=== PATIENT | male | born 1960 | race Caucasian/White ===

== ENCOUNTER 2017-02-11 15:44 | Inpatient (IN) | payer MEDICARE, MEDICAID ==
[~2017-02-11] VITALS: Ht 193 cm; Wt 110.8 kg
[~2017-02-11 15:44] MED LIST: GEOD80CA PO; NEUR300C PO; OMEP20TA PO; PALI234P IM; POLY255S; TRIH2 PO; WARF-60 PO
[2017-02-11 15:51] VITALS: BP 102/58; PULSE 94; RESP 20; TEMP 98; O2SAT 96
--- NOTE | 2017-02-11 16:02 | PD ---
Physical Exam Date Seen by Provider: February 11, 2017 Time Seen by Provider: 16:01 Narrative 57 YOWM BY EMS FOR L GREAT TOE PAIN H/O WART. PAIN 02/09 VSS wating for bed asignment Data Data Last Documented VS Vital Signs Date Time Temp Pulse Resp B/P Pulse Ox O2 Delivery O2 Flow Rate FiO2 02/11/17 15:51 98.0 94 20 102/58 96 Room Air MDM Medical Record Reviewed: No Supervised Visit with HALEY: Santos Ely February 11, 2017 16:02
--- NOTE | 2017-02-11 17:15 | PD ---
HPI Chief Complaint: Pain: Acute or Chronic Time Seen by Provider: 17:08 Travel History International Travel<30 days: No Contact w/Intl Traveler<30days: No Traveled to known affect area: No History of Present Illness HPI 57 YOWM presents to ed with c/o of left great toe pain x 7days. He reports the area has become increasingly more painful & red. He denies trauma. He reports difficulty walking due to the pain. He reports he is followed by Dr. England ( podiatry) for the large wart on his left great toe. He denies fever,chills, or any other complaints. PMH of CPOD, HTN, Bipolar/schizoaffective disorder, Hx of DVT in R leg, xerosis cutis. PFSH Past Medical History Arthritis: Yes Asthma: Yes Autoimmune Disease: No Blood Disorders: No Bipolar Disorder: Yes Anxiety: Yes Depression: Yes (MANIC DEPRESSIVE) Heart Rhythm Problems: No Cancer: No Cardiovascular Problems: Yes (PERIPHERAL VASCULAR DISEASE) High Cholesterol: Yes Chemotherapy: No Chest Pain: No Congestive Heart Failure: No Cirrhosis: No COPD: Yes Cerebrovascular Accident: No Diabetes: No Diminished Hearing: No Deep Vein Thrombosis: Yes Endocrine: Yes Gastrointestinal Disorders: No GERD: Yes Glaucoma: No Genitourinary: Yes Headaches: No Hepatitis: No Hiatal Hernia: Yes Hypertension: Yes Immune Disorder: No Implanted Vascular Access Dvce: No Kidney Stones: Yes Musculoskeletal: No Neurologic: Yes Psychiatric: Yes Reproductive: No Respiratory: Yes Immunizations Current: Yes Migraines: No Myocardial Infarction: No Radiation Therapy: No Renal Failure: Yes Schizophrenia: Yes Seizures: Yes Sickle Cell Disease: No Sleep Apnea: No Thyroid Disease: No Ulcer: No PNEUMOCCOCAL Vaccine (Year): 2 Past Surgical History Abdominal Surgery: No AICD: No Appendectomy: No Arteriovenous Shunt: No Cardiac Surgery: No Cholecystectomy: No Ear Surgery: No Endocrine Surgery: No Eye Surgery: 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) Genitourinary Surgery: Yes (KIDNEY DISORDER) Gynecologic Surgery: No Insulin Pump: No Joint Replacement: No Neurologic Surgery: No Oral Surgery: Yes Pacemaker: No Thoracic Surgery: No Other Surgery: Yes ("JUST MY EYES, I WAS CROSS-EYED WHEN I WAS BORN") Social History Alcohol Use: No Tobacco Use: Yes Substance Use: No Allergies-Medications (Allergen,Severity, Reaction): Coded Allergies: Haldol (Verified Allergy, Severe, TONGUE SWELLS, 11/20/15) [place] (Verified Allergy, Severe, OVER DOSED ON IT, 11/20/15) Penicillin (Verified Allergy, Severe, RASH, 11/20/15) Seroquel (Verified Allergy, Severe, HIVES, 11/20/15) Thorazine (Verified Allergy, Severe, SOB, 11/20/15) 10/26/04: PER PT, HE HAS BEEN TAKING STELAZINE SINCE 13 YEARS OLD --- ALTHOUGH HIS RECORD INDICATES AN ALLERGY TO THORAZINE. 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 SKIN: Warm and dry. Xerosis cutis w/ hyperpigmentation of bilateral lower extremities. HEAD: Normocephalic. EYES: No scleral icterus. No injection or drainage. NECK: Supple, trachea midline. No JVD or lymphadenopathy. CARDIOVASCULAR: Regular rate and rhythm without murmurs, gallops, or rubs. RESPIRATORY: Breath sounds equal bilaterally. No accessory muscle use. Mild expiratory wheezes & rhonchi. No respiratory distress. GASTROINTESTINAL: Abdomen soft, non-tender, nondistended. MUSCULOSKELETAL: No cyanosis, Left great toe erythematic & swollen, 2x2 cm fluctuant area on the medial/plantar aspect of the L great toe. BACK: Nontender without obvious deformity. No CVA tenderness. Data Data Last Documented VS Vital Signs Date Time Temp Pulse Resp B/P Pulse Ox O2 Delivery O2 Flow Rate FiO2 02/11/17 15:51 98.0 94 20 102/58 96 Room Air Orders Complete Blood Count With Diff (02/11/17 17:03) Comprehensive Metabolic Panel (02/11/17 17:03) Foot, Limited (2vws) (02/11/17 ) C-Reactive Protein (Crp) (02/11/17 17:03) Prothrombin Time / Inr (Pt) (02/11/17 17:17) Lidocaine 1% Inj (50 Ml) (Xylocaine 1% I (02/11/17 17:30) Wound Culture And Gram Stain (02/11/17 17:33) Diet Regular Basic (02/11/17 Dinner) Clindamycin Inj (Cleocin Inj) (02/11/17 18:46) Consult Podiatry (02/11/17 ) Admit Order (Ed Use Only) (02/11/17 18:56) Labs Laboratory Tests Test 02/11/17 02/11/17 17:35 18:20 White Blood Count 15.6 TH/MM3 Red Blood Count 4.67 MIL/MM3 Hemoglobin 12.1 GM/DL Hematocrit 38.2 % Mean Corpuscular Volume 81.8 FL Mean Corpuscular Hemoglobin 26.0 PG Mean Corpuscular Hemoglobin 31.8 % Concent Red Cell Distribution Width 18.5 % Platelet Count 236 TH/MM3 Mean Platelet Volume 9.0 FL Neutrophils (%) (Auto) 87.1 % Lymphocytes (%) (Auto) 5.9 % Monocytes (%) (Auto) 6.4 % Eosinophils (%) (Auto) 0.2 % Basophils (%) (Auto) 0.4 % Neutrophils # (Auto) 13.6 TH/MM3 Lymphocytes # (Auto) 0.9 TH/MM3 Monocytes # (Auto) 1.0 TH/MM3 Eosinophils # (Auto) 0.0 TH/MM3 Basophils # (Auto) 0.1 TH/MM3 CBC Comment DIFF FINAL Differential Comment Sodium Level 135 MEQ/L Potassium Level 4.8 MEQ/L Chloride Level 105 MEQ/L Carbon Dioxide Level 21.3 MEQ/L Anion Gap 9 MEQ/L Blood Urea Nitrogen 19 MG/DL Creatinine 3.25 MG/DL Estimat Glomerular Filtration 20 ML/MIN Rate Random Glucose 88 MG/DL Calcium Level 9.7 MG/DL Total Bilirubin 0.4 MG/DL Aspartate Amino Transf 18 U/L (AST/SGOT) Alanine Aminotransferase 16 U/L (ALT/SGPT) Alkaline Phosphatase 126 U/L C-Reactive Protein 19.80 MG/DL Total Protein 8.1 GM/DL Albumin 3.2 GM/DL Prothrombin Time 46.4 SEC Prothromb Time International 4.0 RATIO Ratio MDM Medical Decision Making Medical Screen Exam Complete: Yes Emergency Medical Condition: Yes Medical Record Reviewed: Yes Differential Diagnosis abscess vs. cellulitis vs. osteomyelitis Narrative Course 57 YOM presents with left great toe pain & swelling worsening over the last 7 days. Patient denies any symptoms of systemic infection. PE reveals abscess to left great toe. Plan I & D of the abscess, IV access, CBC, CMP, INR, wound culture, & xray of foot are pending. Left foot xray reveal + gas in soft tissue, negative for osteomyelitis. pertinent labs: CBC: WBC 15, CRP 19.8 CMP: Creatinine 3.9. Plan is to admit patient for abscess & acute renal failure. Discussed Lab/xray findings with patient He agrees to admission & treatment plan. Procedures Procedure Narrative After the risks and benefits were discussed the following procedure was performed: INCISION AND DRAINAGE OF ABSCESS: The area was prepped and was sterilely draped. Digital Block using [1] % Xylocaine with a total number [2] mL was used to anesthetize the area. The area was properly anesthetized. A number [11 ] scalpel was used to make a [0.5] -cm incision across the area of the abscess. Cultures were obtained. The abscess was drained an irrigated with normal saline. Quarter inch iodoform packing was placed in the wound. Sterile dressing applied. Patient advised to have packing removed in two days. Physician Communication Physician Communication Discussed patient with GURDEEP Reilly working with Dr. Farris ([facility]) they agree to admit patient to their services. Diagnosis Primary Impression: Abscess of left great toe Additional Impressions: ARF (acute renal failure) Qualified Code: N17.9 - Acute renal failure, unspecified acute renal failure type Leukocytosis Qualified Code: D72.829 - Leukocytosis, unspecified type Admitting Information Admitting Physician Requests: Admit Renetta Stafford February 11, 2017 17:15 Renetta Stafford February 11, 2017 17:15
[2017-02-11] MEDS ORDERED: LIDOCAINE HCL 1% 50 ML VIAL INFIL ONE (17:30)
--- NOTE | 2017-02-11 17:43 | RADRPT ---
EXAM DATE/TIME: 02/11/2017 17:29 [facility] COMPARISON: No previous studies available for comparison. INDICATIONS : Left foot pain, swelling, and ulceration of 1st digit. MEDICAL HISTORY : None. SURGICAL HISTORY : None. ENCOUNTER: Initial ACUITY: 3 months PAIN SCORE: 10/10 LOCATION: Left foot. FINDINGS: There is gas in the soft tissues about the great toe. There is no obvious bone destruction. Inflamm atory process is suspected. No other abnormality is appreciated. CONCLUSION: Inflammatory process great toe without osteomyelitis. Arcenio Catherine MD FACR on February 11, 2017 at 17:40 Board Certified Radiologist. This report was verified electronically.
--- NOTE | 2017-02-11 17:54 | PD ---
Data Data Last Documented VS Vital Signs Date Time Temp Pulse Resp B/P Pulse Ox O2 Delivery O2 Flow Rate FiO2 02/11/17 15:51 98.0 94 20 102/58 96 Room Air Orders Complete Blood Count With Diff (02/11/17 17:03) Comprehensive Metabolic Panel (02/11/17 17:03) Foot, Limited (2vws) (02/11/17 ) C-Reactive Protein (Crp) (02/11/17 17:03) Prothrombin Time / Inr (Pt) (02/11/17 17:17) Lidocaine 1% Inj (50 Ml) (Xylocaine 1% I (02/11/17 17:30) Wound Culture And Gram Stain (02/11/17 17:33) Diet Regular Basic (02/11/17 Dinner) Clindamycin Inj (Cleocin Inj) (02/11/17 18:46) Consult Podiatry (02/11/17 ) Admit Order (Ed Use Only) (02/11/17 18:56) Labs Laboratory Tests Test 02/11/17 17:35 White Blood Count 15.6 TH/MM3 Red Blood Count 4.67 MIL/MM3 Hemoglobin 12.1 GM/DL Hematocrit 38.2 % Mean Corpuscular Volume 81.8 FL Mean Corpuscular Hemoglobin 26.0 PG Mean Corpuscular Hemoglobin 31.8 % Concent Red Cell Distribution Width 18.5 % Platelet Count 236 TH/MM3 Mean Platelet Volume 9.0 FL Neutrophils (%) (Auto) 87.1 % Lymphocytes (%) (Auto) 5.9 % Monocytes (%) (Auto) 6.4 % Eosinophils (%) (Auto) 0.2 % Basophils (%) (Auto) 0.4 % Neutrophils # (Auto) 13.6 TH/MM3 Lymphocytes # (Auto) 0.9 TH/MM3 Monocytes # (Auto) 1.0 TH/MM3 Eosinophils # (Auto) 0.0 TH/MM3 Basophils # (Auto) 0.1 TH/MM3 CBC Comment DIFF FINAL Differential Comment Sodium Level 135 MEQ/L Potassium Level 4.8 MEQ/L Chloride Level 105 MEQ/L Carbon Dioxide Level 21.3 MEQ/L Anion Gap 9 MEQ/L Blood Urea Nitrogen 19 MG/DL Creatinine 3.25 MG/DL Estimat Glomerular Filtration 20 ML/MIN Rate Random Glucose 88 MG/DL Calcium Level 9.7 MG/DL Total Bilirubin 0.4 MG/DL Aspartate Amino Transf 18 U/L (AST/SGOT) Alanine Aminotransferase 16 U/L (ALT/SGPT) Alkaline Phosphatase 126 U/L C-Reactive Protein 19.80 MG/DL Total Protein 8.1 GM/DL Albumin 3.2 GM/DL MDM Supervised Visit with HALEY: Yes Narrative Course I, Dr. Perdomo, have reviewed the advance practice practioner's documentation and am in agreement, met with the patient face to face, made the diagnosis, and the medical decision making was done by me. *My assessment and Findings: 57-year-old male here with complaint of toe pain to the left great toe. He sees a manager creative and has had a warty-type growth on this toe for the greater part of the last year. Over the course the last week the toe has become increasingly more painful, to the point where he has difficulty walking, and slightly red prompting ER visit. No systemic symptoms. On exam patient has a erythematous great toe that this does not extend into the foot. Along the plantar aspect of the great toe there is obvious fluctuance consistent with abscess. Differential includes abscess, cellulitis, septic joint, osteomyelitis. X-ray shows inflammatory process but no evidence of bony destruction. Laboratory workup notable for elevated WBC with elevated CRP, acute renal failure. I and D was performed with significant amount of purulence. Patient will be treated with antibiotics for abscess with concurrent cellulitis and admitted for rule out osteomyelitis. Scripts Unable to Obtain Active Prescriptions or Reported Meds Rosangela Perdomo MD February 11, 2017 17:54
[2017-02-11 18:09] LABS: AUTOMATED NEUTROPHIL # 13.6 TH/MM3 (1.8-7.7); BASOPHIL # 0.1 TH/MM3 (0-0.2); BASOPHIL % 0.4 % (0.0-2.0); EOSINOPHIL % 0.2 % (0.0-4.0); HEMATOCRIT 38.2 % (39.0-51.0); HEMO FLAGS DIFF FINAL; LYMPH % 5.9 % (9.0-44.0); LYMPHOCYTE # 0.9 TH/MM3 (1.0-4.8); MEAN CELL VOLUME 81.8 FL (80.0-100.0); MEAN CORPUSCULAR HGB CONC 31.8 % (32.0-36.0); MONO % 6.4 % (0.0-8.0); NEUT % 87.1 % (16.0-70.0); PLATELET COUNT 236 TH/MM3 (150-450); RED BLOOD COUNT 4.67 MIL/MM3 (4.50-5.90); RED CELL DISTRIBUTION WIDTH 18.5 % (11.6-17.2); WHITE BLOOD COUNT 15.6 TH/MM3 (4.0-11.0)
[2017-02-11 18:33] LABS: ALT (GPT) 16 U/L (12-78); ANION GAP 9 MEQ/L (5-15); AST (GOT) 18 U/L (15-37); BICARBONATE 21.3 MEQ/L (21.0-32.0); BLOOD UREA NITROGEN 19 MG/DL (7-18); CHLORIDE 105 MEQ/L (98-107); GLOMERULAR FILTRATION RATE 20 ML/MIN (>89); SODIUM (NA) 135 MEQ/L (136-145)
[2017-02-11 18:34] LABS: POTASSIUM 4.8 MEQ/L (3.5-5.1)
[2017-02-11 18:38] LABS: ALKALINE PHOSPHATASE 126 U/L (45-117); TOTAL BILIRUBIN ADULT 0.4 MG/DL (0.2-1.0)
[2017-02-11] MEDS ORDERED: CLINDAMYCIN INJ 900 MG in SODIUM CHLORIDE 0.9% INJ 100 ML IV STA (18:46)
[2017-02-11] MEDS ORDERED: SODIUM CHLORIDE 0.9% FLUSH 10 ML FLUSH IV FLUSH PRN (19:00)
[2017-02-11] MEDS ORDERED: NALOXONE HCL 0.4 MG/ML AMP IV PRN (19:00)
[2017-02-11] MEDS ORDERED: ACETAMINOPHEN 325 MG TAB PO PRN (19:00)
[2017-02-11 19:16] LABS: PROTHROMBIN TIME - PATIENT 46.4 SEC (9.8-11.6)
[2017-02-11] MEDS: SODIUM CHLORIDE 0.9% FLUSH 10 ML FLUSH IV FLUSH SCH (19:37)
[2017-02-11] MEDS: SODIUM CHLOR 0.9% 1000 ML INJ 1,000 ML IV SCH (19:37)
[2017-02-11 21:30] VITALS: BP 133/69; PULSE 83; RESP 18; TEMP 98.9; O2SAT 96
--- NOTE | 2017-02-11 22:18 | RADRPT ---
EXAM DATE/TIME: 02/11/2017 20:55 [facility] COMPARISON: No previous studies available for comparison. INDICATIONS : Abscess. Open wound on medial side of great toe. MEDICAL HISTORY : Hypertension. Schizophrenia. SURGICAL HISTORY : Strabismus correction. ENCOUNTER: Subsequent ACUITY: 2 day PAIN SCORE: 5/10 LOCATION: Left foot TECHNIQUE: Multiplanar, multisequence MRI examination was performed without contrast. FINDINGS: There is mildly increased edema signal present within the great toe distal phalanx by comparison to t he other bony elements. The appearance is worrisome for early osteomyelitis diffusely present within the bone. There is soft tissue edema and induration associated with the medial plantar great toe ulce r. The changes extend right down to the surface of the bone at the midportion the proximal portion of the distal phalanx. The bony elements are otherwise grossly benign. CONCLUSION: Findings worrisome for osteomyelitis involving the great toe distal phalanx Varghese Waldrop MD on February 11, 2017 at 22:12 Board Certified Radiologist. This report was verified electronically.
--- NOTE | 2017-02-12 00:36 | RADRPT ---
EXAM DATE/TIME: 02/11/2017 23:56 [facility] COMPARISON: No previous studies available for comparison. INDICATIONS : Increased BUN/Creatinine. MEDICAL HISTORY : Hypercholesterolemia. Chronic obstructive pulmonary disease. Deep venous thrombosis. Seizures. Periph eral neuropathy. Head trauma. Peripheral vascular disease. Hyperlipidemia. Hypertension. Astma. Hiata l hernia. Gastroesophageal reflux. Mumps. Chronic renal insufficiency. Renal calculi. Arthritis. Schi zophrenia. Bipolar disorder. Depression. Anxiety. Measles. MRSA. SURGICAL HISTORY : Cholecystectomy. Hernia repair. Crossed eye repair. ENCOUNTER: Subsequent ACUITY: 1 day PAIN SCORE: 0/10 LOCATION: Bilateral flank MEASUREMENTS: RIGHT KIDNEY: 10.6 x 6.8 x 5.7 cm LEFT KIDNEY: 12.2 x 5.5 x 5.4 cm FINDINGS: RIGHT KIDNEY: There is thinning of the renal parenchyma with some mild increased echogenicity. There is no evidence of hydronephrosis. There is a cyst along the midpole measuring 2.1 cm. There is a cyst along the low er pole measuring 1.2 cm. LEFT KIDNEY: There is thinning of the renal parenchyma with some increased echogenicity. There is no evidence of h ydronephrosis. There is a cyst along the upper pulmonary 1.4 cm. BLADDER: Within normal limits given the degree of distension. CONCLUSION: 1. No evidence of hydronephrosis. 2. Mild increased echogenicity of the renal parenchyma suggesting some chronic medical renal disease. 3. Small bilateral benign-appearing renal cysts. Lobito Thornton MD on February 12, 2017 at 0:33 Board Certified Radiologist. This report was verified electronically.
[2017-02-12] MEDS: CLINDAMYCIN INJ 300 MG in SODIUM CHLORIDE 0.9% INJ 100 ML IV SCH ×4 (00:48→18:21)
[2017-02-12 00:49] VITALS: BP 105/56; PULSE 70; RESP 18; TEMP 99; O2SAT 92
[2017-02-12 04:00] VITALS: BP 108/62; PULSE 76; RESP 20; TEMP 97.7; O2SAT 95
[2017-02-12] MEDS: SODIUM CHLOR 0.9% 1000 ML INJ 1,000 ML IV SCH ×2 (04:59→11:30)
[2017-02-12 07:55] LABS: BASOPHIL % 0.5 % (0.0-2.0); EOSINOPHIL # 0.2 TH/MM3 (0-0.4); EOSINOPHIL % 1.9 % (0.0-4.0); HEMATOCRIT 32.1 % (39.0-51.0); HEMO FLAGS DIFF FINAL; LYMPH % 10.3 % (9.0-44.0); LYMPHOCYTE # 1.1 TH/MM3 (1.0-4.8); MEAN CELL VOLUME 81.8 FL (80.0-100.0); MEAN CORPUSCULAR HEMOGLOBIN 26.2 PG (27.0-34.0); MONO % 8.8 % (0.0-8.0); NEUT % 78.5 % (16.0-70.0); PLATELET COUNT 205 TH/MM3 (150-450); RED BLOOD COUNT 3.92 MIL/MM3 (4.50-5.90); RED CELL DISTRIBUTION WIDTH 18.5 % (11.6-17.2); WHITE BLOOD COUNT 10.2 TH/MM3 (4.0-11.0)
--- NOTE | 2017-02-12 07:57 | MB ---
cc: CAPRI SHETH DPM DATE OF CONSULTATION: 02/12/2017 REASON FOR CONSULTATION: Left hallux infection, possible osteomyelitis. HISTORY OF PRESENT ILLNESS: This is a 57-year-old male currently I am seeing the patient bedside. He is status post incision and drainage from the ER, he is having pain. He has a poor historian. He admits that he has limited or inability to wash his feet, he does walk barefoot alot. He does admit to smoking, he denies any obvious injury. He apparently is followed outpatient by Dr. England for a large wart. PAST MEDICAL HISTORY: 1. He has a past medical history of chronic obstructive pulmonary disease. 2. Hypertension 3. Bipolar schizoaffective disorder. 4. History of deep venous thrombosis at the right lower extremity. 5. Chronic cirrhosis of the skin. 6. History of peripheral vascular disease. PAST SURGICAL HISTORY Eye surgery Kidney disorder, unspecified. SOCIAL HISTORY: He admits to smoking unspecified amounts. ALLERGIES HALDOL LITHIUM PENICILLIN SEROQUEL THORAZINE HISTORY OF MULTIDRUG RESISTANT ORGANISM FROM 11/20/2015. INPATIENT MEDICATIONS: Reviewed, the patient is receiving clindamycin. PHYSICAL EXAMINATION VITAL SIGNS: Temperature is 97.7, pulse rate is 76, respiratory rate is 20, blood pressure 108/62. He hs sating 95% on room air. IN GENERAL: This is an alert gentleman, this is my first time meeting him. It is early in the morning. He does open his eyes, however, he is quite groggy and has slurring of speech. I cannot give much history from him regarding his foot. The left lower extremity is examined. There is noted to be large callus of the plantar hallux IPJ. There is packing within the plantar lateral hallux with serosanguineous type drainage and also minimal purulence. There is no odor. There is no ischemia. There is edema and erythema and it extends just to the level of the first MPJ. Upon range of motion of the IPJ there is pain. The foot is warm. Pulses are decreased, sensation appears to be fully intact. There is good muscle strength noted. The contralateral extremity appears to have no obvious infection. LABORATORY FINDINGS White blood cell 15.6, hemoglobin/hematocrit 1238, platelet count is 236. Chem-7 sodium is 135, potassium 4.8, chloride 105, CO2 21.3, BUN is 19, creatinine 3.25, random glucose is 88. Coagulation profile, PT is 46.4, INR is 4. Wound culture ordered and pending. Foot MRI is concerning for possible osteomyelitis of the distal phalanx. X-ray findings; inflammatory process, gas in the soft tissue noted. This apparently was pre incision and drainage from the emergency department. ASSESSMENT AND PLAN: Left hallux ulcer abscess likely septic Interphalangeal joint. PLAN: The plan is for incision, drainage and debridement. His INR is elevated. I do feel that since this was not an amputation at a mid or major level, his INR is not so much of an issue however, I prefer the INR to be lower to prevent any bleeding problems, surgery will be planned for sometime tomorrow. I will allow Medicine to work on his coagulation. If the INR remains high, surgery may be postponed until its at a more suitable level. ANEUDY He/stephen /7:24 AM /7:47 AM
[2017-02-12 08:00] VITALS: BP 111/58; PULSE 78; RESP 20; TEMP 98.7; O2SAT 91
[2017-02-12] MEDS: SODIUM CHLORIDE 0.9% FLUSH 10 ML FLUSH IV FLUSH SCH ×2 (08:30→20:25)
[2017-02-12 08:35] LABS: BICARBONATE 24.5 MEQ/L (21.0-32.0); POTASSIUM 3.9 MEQ/L (3.5-5.1)
--- NOTE | 2017-02-12 09:21 | HHI.HP ---
[facility] Arcenio Ledbetter, DO Admission Diagnosis L great toe abscess/cellulitis, r/o osteo Diagnoses: Chief Complaint: LEFT TOE PAIN (Melba Tate) Travel History International Travel<30 Days: No Contact w/Intl Traveler <30 Da: No Traveled to Known Affected Are: No (Melba Tate) History of Present Illness This is a 57-year-old male with history of peripheral vascular disease, peripheral neuropathy, history of DVT on Coumadin, schizoaffective disorder, chronic kidney disease, COPD, tobacco abuse. Patient presented to the emergency room complaining a left great toe pain. Patient is a poor historian, indicates that symptoms have been going on for several months however he told the emergency room physician that it was 7 days. Indicates that started as a wart on his toe and then it became very red and painful. He denies any trauma. He's had difficulty ambulating. He reported that he was seen Dr. England in the past. Patient was evaluated in emergency room, he was noted with some mild leukocytosis, WBC 15.6. BMP was remarkable for worsening renal dysfunction, BUN 19, creatinine 3.25. Patient indicates he continues to make urine. He does not follow-up with the satellite installation technician as outpatient. C-reactive protein 19.8. INR was elevated, 4.0. Left foot x-ray revealed abscess to the left great toe. An I&D was performed in the emergency room and cultures were obtained. Patient was started on empiric antibiotics. Patient was admitted overnight, he has been evaluated by podiatry who plans to take him to the OR for an incision and drainage. An MRI of the right foot has been known and is concerning for possible osteomyelitis. Patient is admitted for further evaluation and treatment. (Melba Tate) Review of Systems ROS Limitations: Poor Historian Musculoskeletal: COMPLAINS OF: Joint Swelling (Melba Tate) Past Family Social History Past Medical History Tobacco abuse. Bipolar disease Difficulty chewing, Seizures. Head trauma. Peripheral arterial disease Hyperlipidemia Hypertension DVT on Coumadin. COPD Hiatal hernia. Reflux disease. Chronic kidney disease. Kidney stones. Schizophrenia. Depression Anxiety Suicide attempt. Violent behavior/verbal agitation post. tendon dysfunction Past Surgical History Kidney surgery for stones. eye surgery As a child rodrigo gomez 06/2014 Reported Medications Reported Meds & Active Scripts Active Active Prescriptions or Reported Medications Unobtainable (Melba Tate) Allergies: Coded Allergies: Haldol (Verified Allergy, Severe, TONGUE SWELLS, 11/20/15) [place] (Verified Allergy, Severe, OVER DOSED ON IT, 11/20/15) Penicillin (Verified Allergy, Severe, RASH, 11/20/15) Seroquel (Verified Allergy, Severe, HIVES, 11/20/15) Thorazine (Verified Allergy, Severe, SOB, 11/20/15) 10/26/04: PER PT, HE HAS BEEN TAKING STELAZINE SINCE 13 YEARS OLD --- ALTHOUGH HIS RECORD INDICATES AN ALLERGY TO THORAZINE. *MDRO Multi-Drug Resistant Organism (Unverified Adverse Reaction, Unknown , 11/20/15) MRSA Active Ordered Medications Inpatient Medications Acetaminophen (Tylenol) 650 mg Q4H PRN PO TEMP > 100.4; Start 02/11/17 at 19:00 Clindamycin Phosphate 900 mg/ Sodium Chloride 106 ml @ 200 mls/hr ONCE STAT IV Last administered on 02/11/17 19:38; Start 02/11/17 at 18:46; Stop at 19:17; Status DC Clindamycin Phosphate/Sodium Chloride (Cleocin Inj/NS Inj) 102 ml @ 104 mls/hr Q6H IV Last administered on 02/12/17 06:09; Start 02/12/17 at 01:00 Lidocaine HCl 50 ml 50 ml ONCE ONCE INFIL Last administered on 02/11/17 17:29 ; Start 02/11/17 at 17:30; Stop 02/11/17 at 17:31; Status DC Naloxone HCl 0.4 mg 0.4 mg UNSCH PRN IV SEE LABEL COMMENTS; Start 02/11/17 at 19:00 Ondansetron HCl (Zofran Inj) 4 mg Q6H PRN IVP NAUSEA OR VOMITING; Start at 19:00 Sodium Chloride (NS 1000 ml Inj) 1,000 ml @ 100 mls/hr Q10H IV Last administered on 02/11/17 19:37; Start 02/11/17 at 18:59 Sodium Chloride (NS Flush) 2 ml BID IV FLUSH Last administered on 02/12/17 08: 30; Start 02/11/17 at 21:00 Family History mother is alive and well doesn't know about medical hx Social History lives alone, no family close by. Smokes 2 packs of cigarettes a day, no longer drinks alcohol, no reported Illicit drug use sees psychiatrist at [facility] (Melba Tate) Physical Exam Vital Signs Vital Signs Date Time Temp Pulse Resp B/P Pulse Ox O2 Delivery O2 Flow Rate FiO2 02/12/17 08:00 98.7 78 20 111/58 91 02/12/17 04:00 97.7 76 20 108/62 95 02/12/17 00:49 99.0 70 18 105/56 92 02/11/17 22:00 Room Air 02/11/17 21:30 98.9 83 18 133/69 96 02/11/17 15:51 98.0 94 20 102/58 96 Room Air Physical Exam GENERAL: This is a well-nourished, well-developed patient, in no apparent distress. SKIN: No rashes, ecchymoses or lesions. Cool and dry. HEAD: Atraumatic. Normocephalic. No temporal or scalp tenderness. EYES: Left eye is strabismus. Pupils reactive No scleral icterus. No injection or drainage. ENT: Nose without bleeding, purulent drainage or septal hematoma. Throat without erythema, tonsillar hypertrophy or exudate. Uvula midline. Airway patent. NECK: Trachea midline. No JVD or lymphadenopathy. Supple, nontender, no meningeal signs. CARDIOVASCULAR: Regular rate and rhythm without murmurs, gallops, or rubs. RESPIRATORY: Clear to auscultation. Breath sounds equal bilaterally. No wheezes , rales, or rhonchi. GASTROINTESTINAL: Abdomen soft, non-tender, nondistended. No hepato-splenomegaly , or palpable masses. No guarding. MUSCULOSKELETAL: Bilateral legs with dry and coarse skin, trace pretibial edema. Left great toe with dressing that is intact. There is mild erythema. Pedal pulses are 1+. No other joint abnormality. NEUROLOGICAL: Patient awake alert oriented 3. No focal deficits. Slow to respond. Flat affect. No focal deficit. Laboratory Laboratory Tests Test 02/11/17 02/11/17 02/12/17 17:35 18:20 06:51 White Blood Count 15.6 10.2 Red Blood Count 4.67 3.92 Hemoglobin 12.1 10.3 Hematocrit 38.2 32.1 Mean Corpuscular Volume 81.8 81.8 Mean Corpuscular Hemoglobin 26.0 26.2 Mean Corpuscular Hemoglobin 31.8 32.0 Concent Red Cell Distribution Width 18.5 18.5 Platelet Count 236 205 Mean Platelet Volume 9.0 9.1 Neutrophils (%) (Auto) 87.1 78.5 Lymphocytes (%) (Auto) 5.9 10.3 Monocytes (%) (Auto) 6.4 8.8 Eosinophils (%) (Auto) 0.2 1.9 Basophils (%) (Auto) 0.4 0.5 Neutrophils # (Auto) 13.6 8.0 Lymphocytes # (Auto) 0.9 1.1 Monocytes # (Auto) 1.0 0.9 Eosinophils # (Auto) 0.0 0.2 Basophils # (Auto) 0.1 0.0 CBC Comment DIFF FINAL DIFF FINAL Differential Comment Sodium Level 135 140 Potassium Level 4.8 3.9 Chloride Level 105 108 Carbon Dioxide Level 21.3 24.5 Anion Gap 9 8 Blood Urea Nitrogen 19 22 Creatinine 3.25 3.26 Estimat Glomerular Filtration 20 20 Rate Random Glucose 88 88 Calcium Level 9.7 8.8 Total Bilirubin 0.4 Aspartate Amino Transf 18 (AST/SGOT) Alanine Aminotransferase 16 (ALT/SGPT) Alkaline Phosphatase 126 C-Reactive Protein 19.80 Total Protein 8.1 Albumin 3.2 Prothrombin Time 46.4 Prothromb Time International 4.0 Ratio Date/Time Procedure Status Source Growth 02/11/17 18:40 Gram Stain - Final Resulted Wound Toe 02/11/17 18:40 Wound Culture Resulted Wound Toe Pending (Melba Tate) Result Diagram: 02/12/17 0651 02/12/17 0651 Imaging Last Impressions Renal Ultrasound 02/11/17 0000 Signed Impressions: Service Date/Time: Saturday, February 11, 2017 23:56 - CONCLUSION: 1. No evidence of hydronephrosis. 2. Mild increased echogenicity of the renal parenchyma suggesting some chronic medical renal disease. 3. Small bilateral benign-appearing renal cysts. Lobito Thornton MD Foot X-Ray 02/11/17 0000 Signed Impressions: Service Date/Time: Saturday, February 11, 2017 17:29 - CONCLUSION: Inflammatory process great toe without osteomyelitis. Arcenio Catherine MD FACR Foot MRI 02/11/17 0000 Signed Impressions: Service Date/Time: Saturday, February 11, 2017 20:55 - CONCLUSION: Findings worrisome for osteomyelitis involving the great toe distal phalanx Varghese Waldrop MD (Melba Tate) Assessment and Plan Problem List: (1) Abscess of left great toe (2) ARF (acute renal failure) (3) Schizoaffective disorder (4) Peripheral neuropathy (5) Posterior tibial tendon dysfunction (6) Chronic anticoagulation (7) Hx of deep venous thrombosis (8) Acute kidney injury superimposed on CKD Assessment and Plan Admit to Dr. Farris 57-year-old male presented to the emergency room with left great toe pain, found with an abscess. MRI concerning for possible osteomyelitis. Had I&D in the emergency room, cultures obtained and started on empiric antibiotics Podiatry has been consulted, Dr. Lai has evaluated patient and plans to take him to the OR tomorrow for incision and drainage. -Continue with empiric antibiotics, follow cultures Acute on chronic renal injury, has not had follow up as outpatient Renal ultrasound has been ordered, results are noted, no obstruction but presence of chronic kidney disease Consult nephrology for evaluation Avoid nephrotoxic agents -Continue with IVF Hypertension, stable Continue with home medication Peripheral neuropathy, on gabapentin Continue gabapentin, decrease dosage to 2 renal dysfunction Schizoaffective disorder, stable, follows up with psychiatrist at [facility] Continue home medication History DVT, on chronic anticoagulation Supratherapeutic INR Hold Coumadin at this time, patient going to the operating room in the morning Repeat INR Home medications reviewed, initiated as indicated No anticoagulation at this time, INR elevated Plan of care has been discussed with the patient, attending and registered nurse. Further management of the patient be dependent on the hospital course This patient was seen by myself and Dr. Farris, this H&P is written on his behalf (Melba Tate) Assessment and Plan pt was seen and examined as above yesterday. unable to sign bc of computer issues chart was reviewed Previous notes reviewed Discussed with patient Discussed with MOLD DESIGN ENGINEER about plan of care (Rod Farris MD) Physician Certification 2 Midnight Certification Type: Admission for Inpatient Services Order for Inpatient Services The services are ordered in accordance with Medicare regulations or non- Medicare payer requirements, as applicable. In the case of services not specified as inpatient-only, they are appropriately provided as inpatient services in accordance with the 2-midnight benchmark. Estimated LOS (days): 2 2 days is the estimated time the patient will need to remain in the hospital, assuming treatment plan goals are met and no additional complications. Post-Hospital Plan: Home Health (Melba Tate) Problem Qualifiers (1) ARF (acute renal failure): Qualified Code: N17.9 - Acute renal failure, unspecified acute renal failure type (2) Schizoaffective disorder: Qualified Code: F25.9 - Schizoaffective disorder, unspecified type (3) Peripheral neuropathy: Qualified Code: G62.9 - Peripheral polyneuropathy Melba Tate February 12, 2017 09:21 Rod Farris MD February 13, 2017 13:20
[2017-02-12] MEDS ORDERED: METO25TA6 PO (09:38)
[2017-02-12] MEDS ORDERED: ATOR40TA16 PO (09:39)
[2017-02-12] MEDS ORDERED: METOPROLOL SUCCINATE 25 MG EXTENDED RELEASE TAB PO SCH (09:45)
[2017-02-12] MEDS ORDERED: GABA300C5 PO ×2 (09:51→11:19)
[2017-02-12] MEDS ORDERED: WARF-60 PO (09:51)
[2017-02-12] MEDS ORDERED: ZIPR1CAP12 PO (09:52)
[2017-02-12] MEDS ORDERED: OMEP20TA PO (11:02)
[2017-02-12] MEDS ORDERED: TRIH2 PO (11:06)
[2017-02-12] MEDS ORDERED: PALI234P IM (11:13)
[2017-02-12 12:00] VITALS: BP 114/67; PULSE 77; RESP 20; TEMP 98.7; O2SAT 94
[2017-02-12] MEDS ORDERED: GABAPENTIN 300 MG CAP PO SCH (13:00)
[2017-02-12] MEDS: GABAPENTIN 300 MG CAP PO SCH ×2 (13:26→20:26)
[2017-02-12] MEDS ORDERED: PHYTONADIONE 5 MG TAB PO ONE (15:15)
[2017-02-12 16:00] VITALS: BP 99/64; PULSE 83; RESP 20; TEMP 98.6; O2SAT 94
--- NOTE | 2017-02-12 17:19 | PD.CONS ---
HPI Consult Requested By Primary Care Physician Arcenio Ledbetter, DO History of Present Illness This patient is a 57-year-old male apparently with a history of multiple medical problems including peripheral vascular disease, COPD, tobacco use and chronic kidney disease based on previous laboratory results. Patient noted to have had a serum creatinine level of 1.84 with an estimated GFR of 38 June. Patient presented with a left hallux infection requiring I&D. Came to the hospital on the insistence of a friend. On presentation creatinine level noted to be elevated as indicated below. Patient denies using NSAIDs at home and apparently was aware of his kidney dysfunction as he was told by his primary care physician that his kidneys were failing. Has not seen a critical power install technician previously by history. Denies any urological problems. Review of Systems Constitutional: COMPLAINS OF: Fatigue Respiratory: DENIES: Apneas, Cough, Snoring, Wheezing, Hemoptysis, Sputum production, Shortness of breath Cardiovascular: DENIES: Chest pain, Palpitations, Syncope, Dyspnea on Exertion , PND, Lower Extremity Edema, Orthopnea, Claudication Musculoskeletal: COMPLAINS OF: Joint pain, DENIES: Muscle aches, Stiffness, Joint Swelling, Back pain, Neck pain Past Family Social History Allergies: Coded Allergies: Haldol (Verified Allergy, Severe, TONGUE SWELLS, 11/20/15) [place] (Verified Allergy, Severe, OVER DOSED ON IT, 11/20/15) Penicillin (Verified Allergy, Severe, RASH, 11/20/15) Seroquel (Verified Allergy, Severe, HIVES, 11/20/15) Thorazine (Verified Allergy, Severe, SOB, 11/20/15) 10/26/04: PER PT, HE HAS BEEN TAKING STELAZINE SINCE 13 YEARS OLD --- ALTHOUGH HIS RECORD INDICATES AN ALLERGY TO THORAZINE. *MDRO Multi-Drug Resistant Organism (Unverified Adverse Reaction, Unknown , 11/20/15) MRSA Past Medical History Chronic kidney disease Peripheral vascular disease Schizoaffective disorder COPD Tobacco abuse Mention of nephrolithiasis in the records but the patient denies previous. Suspect poor self-care. Past Surgical History Noncontributory to current complaint. Reported Medications Reported Meds & Active Scripts Active Reported Gabapentin 300 Mg Cap 300 Mg PO QID Invega Sustenna Inj (Paliperidone Palmitate) 234 Mg/1.5 Ml Inj 234 Mg IM Q28D Trihexyphenidyl (Trihexyphenidyl HCl) 2 Mg Tab 2 Mg PO DAILY Omeprazole 20 Mg Tab 20 Mg PO DAILY Ziprasidone 80 Mg Cap 80 Mg PO BID Warfarin 6 Mg Tab 6 Mg PO DAILY Atorvastatin (Atorvastatin Calcium) 40 Mg Tab 40 Mg PO HS Metoprolol Succinate ER 24 HR (Metoprolol Succinate) 25 Mg Tab 25 Mg PO DAILY Active Ordered Medications Current Medications Lidocaine HCl 50 ml 50 ml ONCE ONCE INFIL Last administered on 02/11/17 17:29 ; Start 02/11/17 at 17:30; Stop 02/11/17 at 17:31; Status DC Clindamycin Phosphate 900 mg/ Sodium Chloride 106 ml @ 200 mls/hr ONCE STAT IV Last administered on 02/11/17 19:38; Start 02/11/17 at 18:46; Stop at 19:17; Status DC Sodium Chloride (NS 1000 ml Inj) 1,000 ml @ 100 mls/hr Q10H IV Last administered on 02/12/17 11:30; Start 02/11/17 at 18:59 Sodium Chloride (NS Flush) 2 ml UNSCH PRN IV FLUSH FLUSH AFTER USING IV ACCESS ; Start 02/11/17 at 19:00 Sodium Chloride (NS Flush) 2 ml BID IV FLUSH Last administered on 02/12/17 08: 30; Start 02/11/17 at 21:00 Acetaminophen (Tylenol) 650 mg Q4H PRN PO TEMP > 100.4; Start 02/11/17 at 19:00 Ondansetron HCl (Zofran Inj) 4 mg Q6H PRN IVP NAUSEA OR VOMITING; Start at 19:00 Naloxone HCl 0.4 mg 0.4 mg UNSCH PRN IV SEE LABEL COMMENTS; Start 02/11/17 at 19:00 Clindamycin Phosphate/Sodium Chloride (Cleocin Inj/NS Inj) 102 ml @ 104 mls/hr Q6H IV Last administered on 02/12/17 13:06; Start 02/12/17 at 01:00 Heparin Sodium (Porcine) (Heparin Inj) 5,000 units Q12HR SQ ; Start 02/12/17 at 21:00; Stop 02/12/17 at 21:00; Status DC Atorvastatin Calcium (Lipitor) 40 mg HS PO ; Start 02/12/17 at 21:00 Metoprolol Succinate (Toprol Xl) 25 mg DAILY PO ; Start 02/12/17 at 09:45 Gabapentin (Neurontin) 300 mg QID PO ; Start 02/12/17 at 13:00; Stop 02/12/17 at 13:00; Status DC Trihexyphenidyl HCl (Artane) 2 mg DAILY PO ; Start 02/13/17 at 09:00 Ziprasidone (Geodon) 80 mg BID PO ; Start 02/12/17 at 21:00 Pantoprazole Sodium (Protonix) 20 mg DAILY PO ; Start 02/13/17 at 09:00 Gabapentin (Neurontin) 300 mg BID PO Last administered on 02/12/17 13:26; Start 02/12/17 at 13:00 Phytonadione (Mephyton) 5 mg ONCE ONCE PO Last administered on 02/12/17 16:29 ; Start 02/12/17 at 15:15; Stop 02/12/17 at 15:16; Status DC Family History Denies a known family history of renal disease. Social History Tobacco use. Denies illicit drug use. Physical Exam Vital Signs Vital Signs Date Time Temp Pulse Resp B/P Pulse Ox O2 Delivery O2 Flow Rate FiO2 02/12/17 12:00 98.7 77 20 114/67 94 02/12/17 08:00 98.7 78 20 111/58 91 02/12/17 04:00 97.7 76 20 108/62 95 02/12/17 00:49 99.0 70 18 105/56 92 02/11/17 22:00 Room Air 02/11/17 21:30 98.9 83 18 133/69 96 Physical Exam GENERAL: Patient appears significantly older than his stated age. SKIN: Warm and dry. HEAD: Normocephalic. EYES: No scleral icterus. No injection or drainage. NECK: Supple, trachea midline. No JVD or lymphadenopathy. CARDIOVASCULAR: Regular rate and rhythm without murmurs, gallops, or rubs. RESPIRATORY: Breath sounds equal bilaterally. No accessory muscle use. GASTROINTESTINAL: Abdomen soft, non-tender, nondistended. MUSCULOSKELETAL: No cyanosis, or edema. BACK: Nontender without obvious deformity. No CVA tenderness. Laboratory Laboratory Tests Test 5/12/17 5/12/17 5/13/17 5/13/17 17:35 18:20 06:51 11:39 White Blood Count 15.6 10.2 Red Blood Count 4.67 3.92 Hemoglobin 12.1 10.3 Hematocrit 38.2 32.1 Mean Corpuscular Volume 81.8 81.8 Mean Corpuscular Hemoglobin 26.0 26.2 Mean Corpuscular Hemoglobin 31.8 32.0 Concent Red Cell Distribution Width 18.5 18.5 Platelet Count 236 205 Mean Platelet Volume 9.0 9.1 Neutrophils (%) (Auto) 87.1 78.5 Lymphocytes (%) (Auto) 5.9 10.3 Monocytes (%) (Auto) 6.4 8.8 Eosinophils (%) (Auto) 0.2 1.9 Basophils (%) (Auto) 0.4 0.5 Neutrophils # (Auto) 13.6 8.0 Lymphocytes # (Auto) 0.9 1.1 Monocytes # (Auto) 1.0 0.9 Eosinophils # (Auto) 0.0 0.2 Basophils # (Auto) 0.1 0.0 CBC Comment DIFF FINAL DIFF FINAL Differential Comment Sodium Level 135 140 Potassium Level 4.8 3.9 Chloride Level 105 108 Carbon Dioxide Level 21.3 24.5 Anion Gap 9 8 Blood Urea Nitrogen 19 22 Creatinine 3.25 3.26 Estimat Glomerular Filtration 20 20 Rate Random Glucose 88 88 Calcium Level 9.7 8.8 Total Bilirubin 0.4 Aspartate Amino Transf 18 (AST/SGOT) Alanine Aminotransferase 16 (ALT/SGPT) Alkaline Phosphatase 126 C-Reactive Protein 19.80 Total Protein 8.1 Albumin 3.2 Prothrombin Time 46.4 59.0 Prothromb Time International 4.0 5.0 Ratio Date/Time Procedure Status Source Growth 02/11/17 18:40 Gram Stain - Final Resulted Wound Toe 02/11/17 18:40 Wound Culture - Preliminary Resulted Group B Beta Strep Result Diagram: 02/12/17 0651 02/12/17 0651 Imaging Last 48 hours Impressions Renal Ultrasound 02/11/17 0000 Signed Impressions: Service Date/Time: Saturday, February 11, 2017 23:56 - CONCLUSION: 1. No evidence of hydronephrosis. 2. Mild increased echogenicity of the renal parenchyma suggesting some chronic medical renal disease. 3. Small bilateral benign-appearing renal cysts. Lobito Thornton MD Foot X-Ray 02/11/17 0000 Signed Impressions: Service Date/Time: Saturday, February 11, 2017 17:29 - CONCLUSION: Inflammatory process great toe without osteomyelitis. Arcenio Catherine MD FACR Foot MRI 02/11/17 0000 Signed Impressions: Service Date/Time: Saturday, February 11, 2017 20:55 - CONCLUSION: Findings worrisome for osteomyelitis involving the great toe distal phalanx Varghese Waldrop MD Assessment and Plan Problem List: (1) CKD (chronic kidney disease) stage 4, GFR 15-29 ml/min Plan: Presently uncertain if there is a component of acute renal insufficiency as a patient did have significant CKD 3 years ago stage III. He may progress to stage IV this point in time. We'll monitor response to IV fluids. Screen for secondary hyperparathyroidism renal disease. Screen for myeloma in view of renal insufficiency with anemia. Serological studies as ordered. Patient was counseled regarding severity of his renal insufficiency and chronicity. Medications should be adjusted for the patient's estimated GFR if clinically indicated. Avoid agents with significant potential for nephrotoxicity possible including NSAIDs for analgesia, iodine contrast agents. Gadolinium is contraindicated if the GFR is below 30. (2) Anemia Plan: Evaluation as ordered. (3) HTN (hypertension) Plan: Continue to monitor and adjust hypertensive regimen as indicated. Mariluz Garcia MD February 12, 2017 17:19
[2017-02-12 20:00] VITALS: BP 116/61; PULSE 82; RESP 18; TEMP 98.6; O2SAT 94
[2017-02-12] MEDS: ZIPRASIDONE HCL 80 MG CAP PO SCH (20:26)
[2017-02-12] MEDS: ATORVASTATIN 40 MG TAB PO SCH (20:26)
[2017-02-12] MEDS ORDERED: HEPARIN SODIUM - SQ 10,000 UNITS/ML VIAL SQ SCH (21:00)
[2017-02-13] VITALS: BP 98/55; PULSE 75; RESP 18; TEMP 99; O2SAT 96
[2017-02-13] MEDS: CLINDAMYCIN INJ 300 MG in SODIUM CHLORIDE 0.9% INJ 100 ML IV SCH ×4 (00:50→20:07)
[2017-02-13] MEDS: SODIUM CHLOR 0.9% 1000 ML INJ 1,000 ML IV SCH ×2 (00:51→10:59)
[2017-02-13] MEDS ORDERED: SODIUM CHLORID 0.9% 500 ML IV PRN (05:45)
[2017-02-13] MEDS ORDERED: CHLORHEXIDINE GLUCONATE 2 % 1 PACK (2 CLOTHS) TOPICAL PRN (05:45)
[2017-02-13] MEDS ORDERED: INSULIN HUMAN REGULAR 1,000 UNITS/10 ML VIAL SQ PRN (05:45)
[2017-02-13] MEDS ORDERED: POVIDONE IODINE 5% (ANTISEPSIS KIT) 4 APPLICATIONS EACH NARE PRN (05:45)
[2017-02-13] MEDS ORDERED: LACTATED RINGER'S 1000 ML IV PRN (05:45)
[2017-02-13 07:42] LABS: BICARBONATE 24.7 MEQ/L (21.0-32.0); POTASSIUM 4.3 MEQ/L (3.5-5.1); TOTAL PROTEIN SPE 6.1 GM/DL (6.0-7.6)
[2017-02-13 08:00] VITALS: BP 126/74; PULSE 78; RESP 20; TEMP 98.6; O2SAT 95
[2017-02-13 08:28] LABS: MEAN CELL VOLUME 80.9 FL (80.0-100.0); MEAN CORPUSCULAR HEMOGLOBIN 25.9 PG (27.0-34.0); PLATELET COUNT 225 TH/MM3 (150-450); RED BLOOD COUNT 3.79 MIL/MM3 (4.50-5.90); RED CELL DISTRIBUTION WIDTH 18.9 % (11.6-17.2); REVIEW FLAG FINAL; WHITE BLOOD COUNT 7.8 TH/MM3 (4.0-11.0)
[2017-02-13 08:34] LABS: HEMATOCRIT 30.6 % (39.0-51.0); PROTHROMBIN TIME - PATIENT 23.2 SEC (9.8-11.6)
[2017-02-13] MEDS: SODIUM CHLORIDE 0.9% FLUSH 10 ML FLUSH IV FLUSH SCH ×2 (09:00→20:08)
[2017-02-13] MEDS ORDERED: ONDANSETRON HCL 4 MG/2 ML VIAL IV PUSH ONE (09:52)
[2017-02-13] MEDS ORDERED: PROPOFOL 200 MG/20 ML AMP IV ONE (09:52)
--- NOTE | 2017-02-13 10:02 | HHI.PR ---
Subjective Remarks denies any pain flat affect wants to eat NPO for OR asking when procedure is happening no cp no sob no fever BP 100s Objective Objective Results - Vital Signs Date Time Temp Pulse Resp B/P Pulse Ox O2 Delivery O2 Flow Rate FiO2 02/13/17 08:00 98.6 78 20 126/74 95 02/13/17 04:00 Room Air 02/13/17 00:00 99.0 75 18 98/55 96 02/13/17 00:00 Room Air 02/12/17 20:42 Room Air 02/12/17 20:00 98.6 82 18 116/61 94 02/12/17 17:49 Room Air 02/12/17 16:00 98.6 83 20 99/64 94 02/12/17 12:00 98.7 77 20 114/67 94 I/O 02/12/17 02/12/17 02/12/17 02/13/17 02/13/17 02/13/17 06:59 14:59 22:59 06:59 14:59 22:59 Intake Total 751 ml 1200 ml 948 ml 684 ml Output Total 250 ml 1100 ml Balance 751 ml 1200 ml 698 ml -416 ml Intake Oral 1200 ml IV Total 751 ml 948 ml 684 ml Output Urine Total 250 ml 1100 ml # Voids 2 0 # Bowel Movements 0 2 0 Result Diagram: 02/13/17 0815 02/13/17 0626 Imaging Last Impressions Renal Ultrasound 02/11/17 0000 Signed Impressions: Service Date/Time: Saturday, February 11, 2017 23:56 - CONCLUSION: 1. No evidence of hydronephrosis. 2. Mild increased echogenicity of the renal parenchyma suggesting some chronic medical renal disease. 3. Small bilateral benign-appearing renal cysts. Lobito Thornton MD Foot X-Ray 02/11/17 0000 Signed Impressions: Service Date/Time: Saturday, February 11, 2017 17:29 - CONCLUSION: Inflammatory process great toe without osteomyelitis. Arcenio Catherine MD FACR Foot MRI 02/11/17 0000 Signed Impressions: Service Date/Time: Saturday, February 11, 2017 20:55 - CONCLUSION: Findings worrisome for osteomyelitis involving the great toe distal phalanx Varghese Waldrop MD Other Results Laboratory Tests Test 02/12/17 02/13/1702/13/17 11:39 06:26 08:15 Prothrombin Time 59.0 23.2 Prothromb Time International 5.0 2.0 Ratio Sodium Level 149 Potassium Level 4.3 Chloride Level 116 Carbon Dioxide Level 24.7 Anion Gap 8 Blood Urea Nitrogen 22 Creatinine 2.79 Estimat Glomerular Filtration 23 Rate Random Glucose 89 Calcium Level 9.0 Iron Level 26 Ferritin 96 Total Protein 6.1 Parathyroid Hormone (Intact) 98.3 White Blood Count 7.8 Red Blood Count 3.79 Hemoglobin 9.8 Hematocrit 30.6 Mean Corpuscular Volume 80.9 Mean Corpuscular Hemoglobin 25.9 Mean Corpuscular Hemoglobin 32.0 Concent Red Cell Distribution Width 18.9 Platelet Count 225 Mean Platelet Volume 8.7 Date/Time Procedure Status Source Growth 02/11/17 18:40 Gram Stain - Final Resulted Wound Toe 02/11/17 18:40 Wound Culture - Preliminary Resulted Group B Beta Strep ROS Neuro/MS: Other (toe pain ) Physical Exam Physical Exam GENERAL: This is a well-nourished, well-developed patient, in no apparent distress. SKIN: No rashes, ecchymoses or lesions. Cool and dry. HEAD: Atraumatic. Normocephalic. No temporal or scalp tenderness. EYES: Left eye is strabismus. Pupils reactive No scleral icterus. No injection or drainage. ENT: Nose without bleeding, purulent drainage or septal hematoma. Throat without erythema, tonsillar hypertrophy or exudate. Uvula midline. Airway patent. NECK: Trachea midline. No JVD or lymphadenopathy. Supple, nontender, no meningeal signs. CARDIOVASCULAR: Regular rate and rhythm without murmurs, gallops, or rubs. RESPIRATORY: Clear to auscultation. Breath sounds equal bilaterally. No wheezes , rales, or rhonchi. GASTROINTESTINAL: Abdomen soft, non-tender, nondistended. No hepato-splenomegaly , or palpable masses. No guarding. MUSCULOSKELETAL: Bilateral legs with dry and coarse skin, trace pretibial edema. Left great toe with dressing that is intact. There is mild erythema. Pedal pulses are 1+. No other joint abnormality. NEUROLOGICAL: Patient awake alert oriented 3. No focal deficits. Slow to respond. Flat affect. No focal deficit. Urinary Catheter: No Vascular Central Line Catheter: No A/P Diagnosis: (1) Abscess of left great toe (2) ARF (acute renal failure) (3) Schizoaffective disorder (4) Peripheral neuropathy (5) Posterior tibial tendon dysfunction (6) Chronic anticoagulation (7) Hx of deep venous thrombosis (8) Acute kidney injury superimposed on CKD Assessment and Plan 57-year-old male presented to the emergency room with left great toe pain, found with an abscess. MRI concerning for possible osteomyelitis. Had I&D in the emergency room, cultures obtained and started on empiric antibiotics Podiatry has been consulted, Dr. Lai has evaluated patient and plans to take him to the OR today for incision and drainage. INR down to 2 -Continue with empiric antibiotics -Cultures positive for group B beta strep Acute on chronic renal injury, has not had follow up as outpatient Renal ultrasound has been ordered, results are noted, no obstruction but presence of chronic kidney disease Dr. Garcia's input appreciated, workup in progress Avoid nephrotoxic agents -Continue with IVF -improvement in creatinine Hypertension, stable BP actually 100s Dec. BB Peripheral neuropathy, on gabapentin Continue gabapentin Schizoaffective disorder, stable, follows up with psychiatrist at [facility] Continue home medication History DVT, on chronic anticoagulation Supratherapeutic INR Hold Coumadin at this time -Received vitamin K by mouth Continue to follow INR daily, INR today 2 Anemia, drop in hemoglobin, possibly dilutional -follow CBC -Monitor for bleeding No anticoagulation at this time Labs reviewed, improvement in creatinine We'll follow-up after procedure D/W RN D/W Dr. Farris D/W pt This patient was seen by myself and Dr. Farris, this note is written on his behalf Problem Qualifiers (1) ARF (acute renal failure): Qualified Code: N17.9 - Acute renal failure, unspecified acute renal failure type (2) Schizoaffective disorder: Qualified Code: F25.9 - Schizoaffective disorder, unspecified type (3) Peripheral neuropathy: Qualified Code: G62.9 - Peripheral polyneuropathy Melba Tate February 13, 2017 10:02
[2017-02-13] MEDS ORDERED: PILL SPLITTER OTHER PRN (10:15)
[2017-02-13] MEDS ORDERED: BUPIVACAINE HCL PF 0.5% 30 ML VIAL ONE (11:51)
[2017-02-13] MEDS ORDERED: CLINDAMYCIN PHOS 600 MG/4 ML VIAL ONE (11:55)
[2017-02-13] MEDS ORDERED: MIDAZOLAM HCL 2 MG/2 ML VIAL ONE (12:27)
--- NOTE | 2017-02-13 12:27 | HHI.PR ---
Immediate Post Op Note Procedure Date: February 13, 2017 Pre Op Diagnosis: Left hallux OM, abscess Post Op Diagnosis: same Surgeon: Ovidio Quiroz Search Coordinator(s): scrub Procedure: Left hallux Incision drainage with bone biopsy distal phalanx Findings: Severe soft tissue infection involving near entire plantar fat pad on the hallux Complications: none Specimen(s) removed: bone distal phalanx Estimated blood loss: less than 30 mL Anesthesia: General, Local Drains: None Fluids: see anesthesia IVF Tourniquet time (min at mmHg) jonnie around the hallux for about 10 min Patient to: Other Patient Condition: Poor Implant/Devices: SEE IMPLANT LOG (if applicable) Date/Time of Procedure: SEE SURGICAL CARE RECORD Ovidio Quiroz DPM February 13, 2017 12:27
[2017-02-13] MEDS: GABAPENTIN 300 MG CAP PO SCH ×2 (13:33→20:07)
[2017-02-13] MEDS: ZIPRASIDONE HCL 80 MG CAP PO SCH ×2 (13:33→20:07)
[2017-02-13] MEDS: PANTOPRAZOLE SOD 20 MG DELAYED RELEASE TAB PO SCH (13:33)
[2017-02-13] MEDS: TRIHEXYPHENIDYL HCL 2 MG TAB PO SCH (13:33)
[2017-02-13 16:00] VITALS: BP 102/64; PULSE 95; RESP 20; TEMP 97.1; O2SAT 98
--- NOTE | 2017-02-13 16:10 | HHI.NPPN ---
Subjective History of Present Illness This patient is a 57-year-old male apparently with a history of multiple medical problems including peripheral vascular disease, COPD, tobacco use and chronic kidney disease based on previous laboratory results. Patient noted to have had a serum creatinine level of 1.84 with an estimated GFR of 38 June. Patient presented with a left hallux infection requiring I&D. Came to the hospital on the insistence of a friend. On presentation creatinine level noted to be elevated as indicated below. Patient denies using NSAIDs at home and apparently was aware of his kidney dysfunction as he was told by his primary care physician that his kidneys were failing. 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 Denies any urological problems. Interval History Patient had no verbal complaints. Indicating that he would like to know when he can go home. He has a cat to take care of at home. Review of Systems General Constitutional: Fatigue Objective Data Data 02/12/17 02/13/17 19:00 07:00 Intake Total 1200 ml 1632 ml Output Total 1350 ml Balance 1200 ml 282 ml Intake Oral 1200 ml IV Total 1632 ml Output Urine Total 1350 ml # Voids 2 0 # Bowel Movements 0 2 Vital Signs Date Time Temp Pulse Resp B/P Pulse Ox O2 Delivery O2 Flow Rate FiO2 02/13/17 13:04 98.1 82 20 114/69 97 Nasal Cannula 3 02/13/17 13:00 82 20 114/69 97 Nasal Cannula 3 02/13/17 12:45 84 20 122/58 96 Nasal Cannula 3 02/13/17 12:30 87 20 119/55 95 Nasal Cannula 3 02/13/17 12:18 98.1 90 20 98/56 92 Nasal Cannula 4 02/13/17 08:00 Room Air 02/13/17 08:00 98.6 78 20 126/74 95 02/13/17 04:00 Room Air 02/13/17 00:00 99.0 75 18 98/55 96 02/13/17 00:00 Room Air 02/12/17 20:42 Room Air 02/12/17 20:00 98.6 82 18 116/61 94 02/12/17 17:49 Room Air -: 02/13/17 0815 02/13/17 0626 Microbiology 02/13/17 Acid Fast Stain, Received Pending 02/13/17 Mycobacterial Culture, Received Pending 02/13/17 Fungal Smear, Received Pending 02/13/17 Fungal Culture, Received Pending 02/13/17 Gram Stain, Received Pending 02/13/17 Wound Culture, Received Pending Physical Exam General Appearance: No Acute Distress, Comfortable Neck Neck Exam: Trachea Midline Pulmonary Resp Exam: Clear Bilaterally, Breath Sounds Equal, No Distress Cardiology CV Exam: Regular, Normal Sinus Rhythm, Good Perfusion Gastrointestinal/Abdomen GI Exam: Soft, Non-Tender Integumentary Skin Exam: Warm, Dry, Intact Extremeties Extremities Exam: No Edema Neurologic Neuro Exam: Alert, Awake, Speech Clear Psychiatric Psych Exam: Appropriate Responses Assessment/Plan Discussed Condition With: Patient Problem List: (1) CKD (chronic kidney disease) stage 4, GFR 15-29 ml/min Plan: Patient's creatinine level has improved since yesterday with IV fluids. Continue hydration with hypotonic solution as the patient is developing hypernatremia. As indicated in consult patient may have progressive CKD 3 which was noted in the past to CKD stage IV. Remains be determined what the patient's baseline creatinine will ultimately be. Workup in progress. Patient was counseled regarding severity of his renal insufficiency and chronicity. Medications should be adjusted for the patient's estimated GFR if clinically indicated. Avoid agents with significant potential for nephrotoxicity possible including NSAIDs for analgesia, iodine contrast agents. Gadolinium is contraindicated if the GFR is below 30. (2) Anemia Plan: Evaluation as ordered. (3) HTN (hypertension) Plan: Continue to monitor and adjust hypertensive regimen as indicated. Mariluz Garcia MD February 13, 2017 16:10
--- NOTE | 2017-02-13 16:25 | EKG ---
Date Performed: 02/13/2017 Time Performed: 07:38:38 PTAGE: 57 years EKG: Sinus rhythm MARKED LEFT AXIS DEVIATION ANTEROSEPTAL MYOCARDIAL INFARCTION , OF INDETERMINATE AGE When compared t o previous tracing, sinus tachycardia has Resolved. Otherwise no other significant serial change. Can not entirely exclude P wave syncronous pacing on this EKG, But it is more likely [place] venricular r hythm. Clinical corrolation would be useful. ABNORMAL ECG PREVIOUS TRACING : 05/29/2014 11.40 DOCTOR: Nori Yin Interpretating Date/Time 02/13/2017 16:23:05
[2017-02-13] MEDS: SODIUM CHLOR 0.45% 1000 ML INJ 1,000 ML IV SCH (16:39)
[2017-02-13 20:00] VITALS: BP 114/72; PULSE 74; RESP 20; TEMP 97; O2SAT 100
[2017-02-13] MEDS: ATORVASTATIN 40 MG TAB PO SCH (20:08)
[2017-02-14] VITALS: BP 118/66; PULSE 71; RESP 20; TEMP 97.7; O2SAT 95
[2017-02-14] MEDS: CLINDAMYCIN 150 MG CAP PO SCH ×2 (00:26→05:24)
[2017-02-14] MEDS: SODIUM CHLOR 0.45% 1000 ML INJ 1,000 ML IV SCH ×2 (03:22→13:01)
[2017-02-14 04:00] VITALS: BP 124/71; PULSE 70; RESP 20; TEMP 98.4; O2SAT 95
[2017-02-14 05:59] LABS: BACTERIA, URINE RARE /hpf; BLOOD, URINE TRACE (NEG); GLUCOSE,URINE NEG (NEG); KETONE, URINE NEG (NEG); NITRITE,URINE NEG (NEG); PH, URINE 5.5 (5.0-8.5); SQUAMOUS EPITHELIAL CELL URINE <1 /hpf (0-5); URINE COLOR LIGHT-YELLOW (YELLW/STRAW)
[2017-02-14 06:14] LABS: HEMATOCRIT 31.6 % (39.0-51.0); MEAN CELL VOLUME 81.7 FL (80.0-100.0); MEAN CORPUSCULAR HEMOGLOBIN 25.8 PG (27.0-34.0); MEAN CORPUSCULAR HGB CONC 31.5 % (32.0-36.0); PLATELET COUNT 212 TH/MM3 (150-450); RED BLOOD COUNT 3.87 MIL/MM3 (4.50-5.90); REVIEW FLAG FINAL; WHITE BLOOD COUNT 11.5 TH/MM3 (4.0-11.0)
[2017-02-14 06:30] LABS: INTERNATIONAL NORMALIZED RATIO 1.3 RATIO; PROTHROMBIN TIME - PATIENT 14.8 SEC (9.8-11.6)
[2017-02-14 06:38] LABS: BICARBONATE 24.6 MEQ/L (21.0-32.0)
[2017-02-14 06:54] LABS: URINE TOTAL PROTEIN TIMED 9.3 MG/DL
--- NOTE | 2017-02-14 07:19 | MP ---
cc: CAPRI SHE[facility] DATE OF SURGERY 02/13/2017 PREOPERATIVE DIAGNOSIS Left hallux ulcer, osteomyelitis and deep abscess. POSTOPERATIVE DIAGNOSIS Left hallux ulcer, osteomyelitis and deep abscess. PROCEDURES PERFORMED Left hallux incision and drainage, expansile debridement with bone biopsy of distal phalanx. FINDINGS Severe soft tissue loss after debridement due to necrosis of skin, a microabscess that involves near-entire plantar fat pad of the hallux. COMPLICATIONS Other than stated previously, none. SPECIMEN Bone for pathology and bone for culture. ESTIMATED BLOOD LOSS Less than 30 mL. ANESTHESIA General with local, 10 cc of 0.25% Marcaine plain. DRAIN None. FLUIDS Please see anesthesia report. TOURNIQUET A [place] wrapped around the base of the hallux for about 10 minutes. PLAN OF ACTIVITY Return to floor. Monitor wound. PATIENT CONDITION Poor. I do feel the patient will eventually need a left hallux amputation. JUSTIFICATION FOR PROCEDURE A 57-year-old male who is a poor historian, poor hygiene. It appears he was treated for a wart [facility] the [facility] which became red, hot, swollen, draining. MRI is concerning for bone infection. PROCEDURE IN DETAIL Under mild sedation the patient was brought into the operating room, placed on the operative table in the supine position. Following the induction of general anesthesia, local anesthesia was attained about the hallux utilizing standard block fashion. The left foot was then scrubbed, prepped and draped in the usual aseptic fashion, elevated, examined and a [place] drain was then wrapped around the base of the hallux to serve as a toe tourniquet. The toe was examined. There was noted to be hemorrhagic callus and significant odor, crepitus of the plantar fat pad. Utilizing a rongeur the fat pad and skin was friable. Evidence of purulent microabscesses were noted that went all the way down to the flexor hallucis longus and the distal phalanx. This was then removed to what appeared to be viable tissue. Utilizing a rongeur, bone was then taken from the distal phalanx and cultured and sent for pathological analysis. The tourniquet was dropped. There was noted be good bleeding at the surgery site with a large soft tissue deficit at this point now measuring approximately 2.5-cm x 3-cm down to bone and tendon. The wound was then packed open, a bulky bandage placed and the patient transferred from OR to PACU with all vital signs stable. The issue is now the patient has a severe deep wound. If the pathology comes back as positive, I am recommending hallux amputation. We will await the disposition over the next 2-3 days. ANEUDY He/MANSOOR /12:28 PM /7:12 AM
[2017-02-14 08:00] VITALS: BP 124/68; PULSE 95; RESP 20; TEMP 98.3; O2SAT 95
[2017-02-14] MEDS: GABAPENTIN 300 MG CAP PO SCH ×2 (09:14→22:38)
[2017-02-14] MEDS: METOPROLOL SUCCINATE 25 MG EXTENDED RELEASE TAB PO SCH (09:14)
[2017-02-14] MEDS: TRIHEXYPHENIDYL HCL 2 MG TAB PO SCH (09:14)
[2017-02-14] MEDS: ZIPRASIDONE HCL 80 MG CAP PO SCH ×2 (09:14→22:38)
[2017-02-14] MEDS: PANTOPRAZOLE SOD 20 MG DELAYED RELEASE TAB PO SCH (09:14)
[2017-02-14] MEDS: SODIUM CHLORIDE 0.9% FLUSH 10 ML FLUSH IV FLUSH SCH ×2 (09:16→21:00)
[2017-02-14 09:36] LABS: ALBUMIN SPE 3.06 GM/DL (3.50-5.00); ALPHA 1 GLOBULIN 0.29 GM/DL (0.11-0.29); ALPHA 2 GLOBULIN 0.96 GM/DL (0.22-1.00); BETA GLOBULINS (SPE) 0.91 GM/DL (0.53-1.03)
--- NOTE | 2017-02-14 09:55 | HHI.PR ---
Subjective Remarks Sitting on side of bed Alert responding to simple questions Smoker with cravings Afebrile BM this a.m. Left foot wound bandaged clean dry and intact, encouraged to elevate (Radha Muller) Objective Objective Results - Vital Signs Date Time Temp Pulse Resp B/P Pulse Ox O2 Delivery O2 Flow Rate FiO2 02/14/17 08:00 98.3 95 20 124/68 95 02/14/17 04:00 98.4 70 20 124/71 95 02/14/17 04:00 Room Air 02/14/17 00:00 Room Air 02/14/17 00:00 97.7 71 20 118/66 95 02/13/17 20:00 97.0 74 20 114/72 100 02/13/17 19:30 Room Air 02/13/17 16:00 97.1 95 20 102/64 98 02/13/17 13:04 98.1 82 20 114/69 97 Nasal Cannula 3 02/13/17 13:00 82 20 114/69 97 Nasal Cannula 3 02/13/17 12:45 84 20 122/58 96 Nasal Cannula 3 02/13/17 12:30 87 20 119/55 95 Nasal Cannula 3 02/13/17 12:18 98.1 90 20 98/56 92 Nasal Cannula 4 I/O 02/13/17 02/13/17 02/13/17 02/14/17 02/14/17 02/14/17 07:00 15:00 23:00 07:00 15:00 23:00 Intake Total 684 ml 350 ml 992 ml 210 ml Output Total 1100 ml 30 ml 450 ml 450 ml Balance -416 ml 320 ml 542 ml -240 ml Intake Oral 600 ml 120 ml IV Total 684 ml 50 ml 392 ml 90 ml Other 300 ml Output Urine Total 1100 ml 450 ml 450 ml Estimated Blood Loss 30 ml # Bowel Movements 0 1 0 0 (Radha Muller) Result Diagram: 02/14/1751002/14/17510 ROS General: Fatigue, Weakness, Other (10 point ROS done positives noted other systems negative or unremarkable) Cardiac: Edema (lower extremity 1+ edema on left, trace on right, peripheral vascular disease with darkening of color on his lower extremities) Pulmonary: Cough (K she will), Wheezing (mild), Other (smoker) GI: BM (this a.m.) Skin: Other (left lower leg wound bandaged clean dry and intact) (Radha Muller) Physical Exam Physical Exam PHYSICAL EXAMINATION GENERAL: This is a male resting on side of the bed He is awake, answers simple questions HEAD: Normocephalic without any lesion or mass noted. Facial features appear symmetric. OROPHARYNGEAL: Oropharynx without erythema or edema. NECK: Supple. No nuchal rigidity or lymphadenopathy. Trachea midline without deviation. CARDIAC: Regular rhythm, regular rate, S1 and S2 are heard. LUNGS: Diminished to auscultation bilaterally. Mild rhonchi ABDOMEN: Soft, nontender, no organomegaly or masses. Bowel sounds are heard in all four quadrants. No rebound. No guarding. EXTREMITIES: 1+ edema. Pulses intact but weak , darkened skin color lower extremities NEUROLOGICAL: Patient mood and affect appropriate. Answers simple questions SKIN:Warm , dry Objective Remarks I feel better when sitting up but would like Cigarette (Radha Muller) A/P Assessment and Plan Podiatry has been consulted, Dr. Lai has evaluated patient , appreciate expert opinion Cultures positive for group B beta strep Labs reviewed, noted mild leukocytosis with increase, continue antibiotic therapy Activity, sitting on side of bed, encouraged patient to elevate lower extremities as much as possible Acute on chronic renal injury, continues Hydration continues for IV fluids, medical management monitor labs Peripheral neuropathy, on gabapentin Medical management Schizoaffective disorder, stable, follows up with psychiatrist at [facility] Medical management History DVT, on chronic anticoagulation Coumadin therapy per pharmacy Anemia, secondary to probable chronic disease Monitor, stable at 10.2 Tobacco abuse and dependence, nicotine patch ordered, and discussed plan of no smoking D/W RN D/W Dr. Farris, seen on his behalf D/W pt (Radha Muller) Assessment and Plan Agency and examined as above Labs and medications reviewed Plan of care discussed with DATA REVIEW SPECIALIST Appreciate literacy consultant help Awaiting for bone biopsy report Discussed with patient Discussed with RN Has increase sodium we will change IV fluids IV antibiotic (oRd Farris MD) Radha Muller February 14, 2017 09:55 Rod Farris MD February 14, 2017 11:15
[2017-02-14] MEDS: CLINDAMYCIN INJ 600 MG in SODIUM CHLORIDE 0.9% INJ 100 ML IV SCH ×3 (10:20→22:38)
--- NOTE | 2017-02-14 10:24 | HHI.NPPN ---
Subjective History of Present Illness This patient is a 57-year-old male apparently with a history of multiple medical problems including peripheral vascular disease, COPD, tobacco use and chronic kidney disease based on previous laboratory results. Patient noted to have had a serum creatinine level of 1.84 with an estimated GFR of 38 June. Patient presented with a left hallux infection requiring I&D. Came to the hospital on the insistence of a friend. On presentation creatinine level noted to be elevated as indicated below. Patient denies using NSAIDs at home and apparently was aware of his kidney dysfunction as he was told by his primary care physician that his kidneys were failing. 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 Denies any urological problems. Interval History Pt voiced no complaints today (Gemma Kay) Review of Systems General Constitutional: Fatigue (Gemma Kay) Objective Data Data 02/13/17 02/14/17 19:00 07:00 Intake Total 350 ml 1202 ml Output Total 30 ml 900 ml Balance 320 ml 302 ml Intake Oral 720 ml IV Total 50 ml 482 ml Other 300 ml Output Urine Total 900 ml Estimated Blood Loss 30 ml # Bowel Movements 1 0 Vital Signs Date Time Temp Pulse Resp B/P Pulse Ox O2 Delivery O2 Flow Rate FiO2 02/14/17 08:00 98.3 95 20 124/68 95 02/14/17 04:00 98.4 70 20 124/71 95 02/14/17 04:00 Room Air 02/14/17 00:00 Room Air 02/14/17 00:00 97.7 71 20 118/66 95 02/13/17 20:00 97.0 74 20 114/72 100 02/13/17 19:30 Room Air 02/13/17 16:00 97.1 95 20 102/64 98 02/13/17 13:04 98.1 82 20 114/69 97 Nasal Cannula 3 02/13/17 13:00 82 20 114/69 97 Nasal Cannula 3 02/13/17 12:45 84 20 122/58 96 Nasal Cannula 3 02/13/17 12:30 87 20 119/55 95 Nasal Cannula 3 02/13/17 12:18 98.1 90 20 98/56 92 Nasal Cannula 4 (Gemma Kay) -: 02/14/17 0511 02/14/17 0511 Microbiology 02/13/17 Acid Fast Stain, Received Pending 02/13/17 Mycobacterial Culture, Received Pending 02/13/17 Fungal Smear - Final, Resulted NO FUNGAL ELEMENTS SEEN. 02/13/17 Fungal Culture, Resulted Pending 02/13/17 Gram Stain - Final, Resulted 02/13/17 Wound Culture, Resulted Pending Imaging Last Impressions Renal Ultrasound 02/11/17 0000 Signed Impressions: Service Date/Time: Saturday, February 11, 2017 23:56 - CONCLUSION: 1. No evidence of hydronephrosis. 2. Mild increased echogenicity of the renal parenchyma suggesting some chronic medical renal disease. 3. Small bilateral benign-appearing renal cysts. Lobito Thornton MD Foot X-Ray 02/11/17 0000 Signed Impressions: Service Date/Time: Saturday, February 11, 2017 17:29 - CONCLUSION: Inflammatory process great toe without osteomyelitis. Arcenio Catherine MD FACR Foot MRI 02/11/17 0000 Signed Impressions: Service Date/Time: Saturday, February 11, 2017 20:55 - CONCLUSION: Findings worrisome for osteomyelitis involving the great toe distal phalanx Varghese Waldrop MD Medication Review Current Medications Medications (Trade) Dose Ordered Sig/Kwadwo Route Start Time Stop Time Status Last Admin (NS Flush) 2 ml UNSCH PRN IV FLUSH 02/11/17 19:00 (NS Flush) 2 ml BID IV FLUSH 02/11/17 21:00 02/14/17 09:16 (Tylenol) 650 mg Q4H PRN PO 02/11/17 19:00 (Zofran Inj) 4 mg Q6H PRN IVP 02/11/17 19:00 (Narcan Inj) 0.4 mg UNSCH PRN IV 02/11/17 19:00 (Lipitor) 40 mg HS PO 02/12/17 21:00 02/13/17 20:08 (Artane) 2 mg DAILY PO 02/13/17 09:00 02/14/17 09:14 (Geodon) 80 mg BID PO 02/12/17 21:00 02/14/17 09:14 (Protonix) 20 mg DAILY PO 02/13/17 09:00 02/14/17 09:14 (Neurontin) 300 mg BID PO 02/12/17 13:00 02/14/17 09:14 (Toprol Xl) 12.5 mg DAILY PO 02/14/17 09:00 02/14/17 09:14 Miscellaneous 1 ea 1 ea UNSCH PRN OTHER 02/13/17 10:15 Sodium Chloride 1,000 ml @ 90 mls/hr Q11H7M IV 02/13/17 16:15 02/13/17 16:39 (Cleocin Inj/NS Inj) 104 ml @ 208 mls/hr Q6H IV 02/14/17 10:00 (Habitrol 21 Mg Patch.24 Hr) 1 patch DAILY T-DERMAL 02/14/17 10:00 Miscellaneous Information 1 DAILY T-DERMAL 02/15/17 09:00 (Gemma Kay) Physical Exam General Appearance: No Acute Distress, Comfortable (Gemma Kay) Neck Neck Exam: Trachea Midline (Gemma Kay) Pulmonary Resp Exam: Clear Bilaterally, Breath Sounds Equal, No Distress (Gemma Kay) Cardiology CV Exam: Regular, Normal Sinus Rhythm, Good Perfusion (Gemma Kay) Gastrointestinal/Abdomen GI Exam: Soft, Non-Tender (Gemma Kay) Integumentary Skin Exam: Warm, Dry, Intact (Gemma Kay) Extremeties Extremities Exam: No Edema (Gemma Kay) Neurologic Neuro Exam: Alert, Awake, Speech Clear (Gemma Kay) Psychiatric Psych Exam: Appropriate Responses (Gemma Kay) Assessment/Plan Discussed Condition With: Patient Problem List: (1) CKD (chronic kidney disease) stage 4, GFR 15-29 ml/min Plan: SCr improving. Reports adequate po intake. Will D/C IVF at this time. Advised free water given his mild hypernatremia As discussed with the patient, he may have progressed to CKD 4 and remains be determined what the patient's baseline creatinine will ultimately be. Workup in progress. Patient was counseled regarding severity of his renal insufficiency and chronicity. Medications should be adjusted for the patient's estimated GFR if clinically indicated. Avoid agents with significant potential for nephrotoxicity possible including NSAIDs for analgesia, iodine contrast agents. Gadolinium is contraindicated if the GFR is below 30. (2) Anemia Plan: Improved slightly with low Fe stores. Start po ferrous sulfate. Awaiting serology (3) HTN (hypertension) Plan: Stable on current regimen Continue to monitor and adjust hypertensive regimen as indicated. (4) Secondary hyperparathyroidism Plan: With vitamin D deficiency. Start on cholecalciferol. (Gemma Kay) Plan The exam, history, and the medical decision-making described in the above note were completed with the assistance of the PA-C. I reviewed and agree with the findings presented. (Mariluz Garcia MD) Gemma Kay February 14, 2017 10:24 Mariluz Garcia MD February 15, 2017 15:37
[2017-02-14 12:00] VITALS: BP 152/81; PULSE 77; RESP 20; TEMP 96.1; O2SAT 94
[2017-02-14] MEDS: FERROUS SULFATE 325 MG (65 MG ELEMENTAL IRON) TAB PO SCH (12:59)
[2017-02-14] MEDS: CHOLECALCIFEROL (VIT D3) 1000 UNIT TAB PO SCH (12:59)
[2017-02-14] MEDS: NICOTINE 21 MG/24 HR PATCH T-DERMAL SCH (12:59)
--- NOTE | 2017-02-14 18:20 | PD.POD ---
Subjective Podiatric Problems s/p left hallux I&D with on 02/13/17. Patient is complaining of pain , but states that over all he feels fine. His WBC is elevated from yesterday, but he denies any n/v/f/h/c/sob. Pain score: 5 Past Med/Surg/Social History Past Medical History Cardiovascular: REPORTS HX OF: Hyperlipidemia, Hypertension Infectious disease: REPORTS HX OF: Chickenpox, Measles, Mumps Neurologic: REPORTS HX OF: Peripheral neuropathy Psychiatric: REPORTS HX OF: Bipolar disorder Past Surgical History HEENT: REPORTS HX OF: Other eye surgery Gastrointestinal: REPORTS HX OF: Cholecystectomy, Hernia repair Breast: DENIES HX OF: Mastectomy, bilateral, Mastectomy, left, Mastectomy, right Social History Smoking Status: Heavy Tobacco Smoker Objective Vital Signs Vital Signs Date Time Temp Pulse Resp B/P Pulse Ox O2 Delivery O2 Flow Rate FiO2 02/14/17 12:00 96.1 77 20 152/81 94 02/14/17 09:22 Room Air 02/14/17 08:00 98.3 95 20 124/68 95 02/14/17 04:00 98.4 70 20 124/71 95 02/14/17 04:00 Room Air 02/14/17 00:00 Room Air 02/14/17 00:00 97.7 71 20 118/66 95 02/13/17 20:00 97.0 74 20 114/72 100 02/13/17 19:30 Room Air Coded Allergies: Haldol (Verified Allergy, Severe, TONGUE SWELLS, 11/20/15) [place] (Verified Allergy, Severe, OVER DOSED ON IT, 11/20/15) Penicillin (Verified Allergy, Severe, RASH, 11/20/15) Seroquel (Verified Allergy, Severe, HIVES, 11/20/15) Thorazine (Verified Allergy, Severe, SOB, 11/20/15) 10/26/04: PER PT, HE HAS BEEN TAKING STELAZINE SINCE 13 YEARS OLD --- ALTHOUGH HIS RECORD INDICATES AN ALLERGY TO THORAZINE. 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 Physical Exam Remarks Exam is unchanged from previous evaluation, with the exception of the wound site : Left plantar hallux wound 2.0cm x 2.0cm x 0.7cm, no exposed bone but small amount of exposed tendon, fibrogranular base, mild serous drainage, mild erythema to dorsal hallux, no malodor Assessment & Plan A/P 1) Left hallux stage 2/3 hallux ulcer with resolving cellulitis, s/p I&D 02/13 -patient wound appears to be healing well with only amount of residual erythema , but the elevated WBC is noted -new wound care orders placed -If WBC continues to rise and no other source is identified he may need a repeat debridement -surgical pathology is pending to help determine abx -pt will be cleared for d/c if WBC normalizes and outpt abx can be determined. He will need [facility]. Vicki Jo DPM February 14, 2017 18:20
[2017-02-14 20:00] VITALS: BP 137/72; PULSE 72; RESP 20; TEMP 97.6; O2SAT 96
[2017-02-14] MEDS: ATORVASTATIN 40 MG TAB PO SCH (22:38)
[2017-02-15] VITALS (7 sets, daily range): BP systolic 105–134; BP diastolic 58–85; PULSE 61–88; RESP 16–20; TEMP 97–98.6; O2SAT 94–99
[2017-02-15] MEDS: SODIUM CHLOR 0.45% 1000 ML INJ 1,000 ML IV SCH ×3 (00:27→23:15)
[2017-02-15] MEDS: ONDANSETRON HCL 4 MG/2 ML VIAL IVP PRN ×2 (02:31→16:17)
[2017-02-15] MEDS: CLINDAMYCIN INJ 600 MG in SODIUM CHLORIDE 0.9% INJ 100 ML IV SCH ×4 (04:28→20:51)
[2017-02-15 07:39] LABS: HEMATOCRIT 29.7 % (39.0-51.0); MEAN CELL VOLUME 80.3 FL (80.0-100.0); MEAN CORPUSCULAR HEMOGLOBIN 26.5 PG (27.0-34.0); MEAN CORPUSCULAR HGB CONC 33.1 % (32.0-36.0); PLATELET COUNT 234 TH/MM3 (150-450); RED CELL DISTRIBUTION WIDTH 18.7 % (11.6-17.2); REVIEW FLAG FINAL; WHITE BLOOD COUNT 9.7 TH/MM3 (4.0-11.0)
[2017-02-15 08:04] LABS: BICARBONATE 26.3 MEQ/L (21.0-32.0); POTASSIUM 3.9 MEQ/L (3.5-5.1)
[2017-02-15] MEDS: TRIHEXYPHENIDYL HCL 2 MG TAB PO SCH (09:23)
[2017-02-15] MEDS: PANTOPRAZOLE SOD 20 MG DELAYED RELEASE TAB PO SCH (09:23)
[2017-02-15] MEDS: CHOLECALCIFEROL (VIT D3) 1000 UNIT TAB PO SCH (09:23)
[2017-02-15] MEDS: GABAPENTIN 300 MG CAP PO SCH ×2 (09:23→20:51)
[2017-02-15] MEDS: METOPROLOL SUCCINATE 25 MG EXTENDED RELEASE TAB PO SCH (09:23)
[2017-02-15] MEDS: FERROUS SULFATE 325 MG (65 MG ELEMENTAL IRON) TAB PO SCH (09:24)
[2017-02-15] MEDS: SODIUM CHLORIDE 0.9% FLUSH 10 ML FLUSH IV FLUSH SCH ×2 (09:24→20:51)
[2017-02-15] MEDS: COLLAGENASE OINT 30 GM TUBE TOPICAL SCH (09:24)
[2017-02-15] MEDS: ZIPRASIDONE HCL 80 MG CAP PO SCH ×2 (09:24→20:51)
[2017-02-15] MEDS: REMOVE OLD PATCH T-DERMAL SCH (09:28)
[2017-02-15] MEDS: NICOTINE 21 MG/24 HR PATCH T-DERMAL SCH (09:28)
--- NOTE | 2017-02-15 11:38 | HHI.PR ---
Subjective Remarks Sitting on side of bed and ambulating prn Alert , responsive minimal foot pain, controlled Afebrile Left foot wound bandaged clean dry and intact, encouraged to elevate, shoe on for being up awaiting biopsies foot. (Radha Muller) Objective Objective Results - Vital Signs Date Time Temp Pulse Resp B/P Pulse Ox O2 Delivery O2 Flow Rate FiO2 02/15/17 04:00 98.0 86 20 116/82 98 02/15/17 04:00 Room Air 02/15/17 00:00 Room Air 02/15/17 00:00 98.4 73 18 105/58 95 02/14/17 20:00 97.6 72 20 137/72 96 02/14/17 20:00 Room Air 02/14/17 12:00 96.1 77 20 152/81 94 I/O 02/14/17 02/14/17 02/14/17 02/15/17 02/15/17 02/15/17 07:00 15:00 23:00 07:00 15:00 23:00 Intake Total 210 ml 480 ml 853 ml 240 ml Output Total 450 ml 1000 ml 500 ml Balance -240 ml -520 ml 853 ml -260 ml Intake Oral 120 ml 480 ml 480 ml 240 ml IV Total 90 ml 373 ml Output Urine Total 450 ml 1000 ml 500 ml # Voids 2 # Bowel Movements 0 1 1 1 (Radha Muller) Result Diagram: 02/15/17 0650 02/15/17 0650 ROS General: Weakness (mild anxiety), Other (10 point ROS done, positives noted, other systems negative.) Cardiac: Edema (minimal foot, wrapped, CDI) Pulmonary: Cough (occasional) Neuro/MS: Other (alert, calm ) Skin: Other (foot wound) (Radha Muller) Physical Exam Physical Exam PHYSICAL EXAMINATION GENERAL: This is a well-developed, well-nourished male ambulating in room and up in chair He is alert and awake, hoping to go home same HEAD: Normocephalic without any lesion or mass noted. Facial features appear symmetric. OROPHARYNGEAL: Oropharynx without erythema or edema. NECK: Supple. Trachea midline without deviation. CARDIAC: Regular rhythm, regular rate, S1 and S2 are heard. LUNGS: Clear to auscultation bilaterally. No wheezing no acute rhonchi, ABDOMEN: Soft, nontender, no organomegaly or masses. Bowel sounds active, daily BM EXTREMITIES: Wound left foot , minimal edema. Dressing clean dry and intact NEUROLOGICAL: Patient mood and affect appropriate. Mild anxiety over wanting to go home, but realizes he still needs some hospital stay. SKIN:Warm and moist Objective Remarks I hope to go home soon to see my cat. (Radha Muller) A/P Assessment and Plan Assessment and Plan Podiatry has been consulted, Dr. Lai has evaluated patient , appreciate expert opinion Cultures positive for group B beta strep Labs reviewed, noted mild leukocytosis with increase, continue antibiotic therapy Awaiting sensitivity reports as well as biopsy, for continued antibiotic therapy and further plan of care Activity, sitting on side of bed, encouraged patient to elevate lower extremities as much as possible Left hallux stage 2/3 hallux ulcer with resolving cellulitis, s/p I&D 02/13 new wound care orders placed for erythema at wound site may need a repeat debridement dependent on healing process and patient's WBC count. Pain management Acute on chronic renal injury, continues Continue IV antibiotics and hydration Peripheral neuropathy, on gabapentin Medical management Schizoaffective disorder, stable, follows up with psychiatrist at [facility] Medical management, stable for now with some mild anxiety History DVT, on chronic anticoagulation Coumadin therapy per pharmacy Anemia, secondary to probable chronic disease, stable continue to monitor Tobacco abuse and dependence, nicotine patch ordered, and discussed plan of no smoking D/W RN D/W Dr. Farris, seen on his behalf D/W pt (Radha Muller) Assessment and Plan Patient seen and examined as above Labs and medications reviewed Previous notes reviewed Plan of care discussed with STOCK FE[employer]ER Discussed with patient Discussed with RN (Rod Farris MD) Radha Muller February 15, 2017 11:38 Rod Farris MD February 15, 2017 16:39
--- NOTE | 2017-02-15 15:37 | HHI.NPPN ---
Subjective History of Present Illness This patient is a 57-year-old male apparently with a history of multiple medical problems including peripheral vascular disease, COPD, tobacco use and chronic kidney disease based on previous laboratory results. Patient noted to have had a serum creatinine level of 1.84 with an estimated GFR of 38 June. Patient presented with a left hallux infection requiring I&D. Came to the hospital on the insistence of a friend. On presentation creatinine level noted to be elevated as indicated below. Patient denies using NSAIDs at home and apparently was aware of his kidney dysfunction as he was told by his primary care physician that his kidneys were failing. Has not seen a supervisor lens generating previously by history. Denies any urological problems. Interval History Patient had no verbal complaints. Review of Systems General Constitutional: Fatigue Objective Data Data 02/14/17 02/15/17 19:00 07:00 Intake Total 853 ml 720 ml Output Total 1000 ml 500 ml Balance -147 ml 220 ml Intake Oral 480 ml 720 ml IV Total 373 ml Output Urine Total 1000 ml 500 ml # Voids 2 # Bowel Movements 1 2 Vital Signs Date Time Temp Pulse Resp B/P Pulse Ox O2 Delivery O2 Flow Rate FiO2 02/15/17 12:00 98.6 88 18 112/74 97 02/15/17 09:13 Room Air 02/15/17 08:00 98.3 66 20 114/71 99 02/15/17 04:00 98.0 86 20 116/82 98 02/15/17 04:00 Room Air 02/15/17 00:00 Room Air 02/15/17 00:00 98.4 73 18 105/58 95 02/14/17 20:00 97.6 72 20 137/72 96 02/14/17 20:00 Room Air -: 02/15/17 0650 02/15/17 0650 Physical Exam General Appearance: No Acute Distress, Comfortable Neck Neck Exam: Trachea Midline Pulmonary Resp Exam: Clear Bilaterally, Breath Sounds Equal, No Distress Cardiology CV Exam: Regular, Normal Sinus Rhythm, Good Perfusion Gastrointestinal/Abdomen GI Exam: Soft, Non-Tender Integumentary Skin Exam: Warm, Dry, Intact Extremeties Extremities Exam: No Edema Neurologic Neuro Exam: Alert, Awake, Speech Clear Psychiatric Psych Exam: Appropriate Responses Assessment/Plan Discussed Condition With: Patient Problem List: (1) CKD (chronic kidney disease) stage 4, GFR 15-29 ml/min Plan: I believe that the patient's creatinine level is at or close to his baseline level. I advised the patient the importance of follow-up with a supervisor lens generating post discharge. He was also advised of the severity of his CKD and need to avoid NSAIDs for analgesia post discharge. At this point in time the patient will be seen on when necessary basis in house. Please recall if needed. We'll be happy to follow up patient post discharge as discussed with him. Medications should be adjusted for the patient's estimated GFR if clinically indicated. Avoid agents with significant potential for nephrotoxicity possible including NSAIDs for analgesia, iodine contrast agents. Gadolinium is contraindicated if the GFR is below 30. (2) Anemia Plan: Improved slightly with low Fe stores. Start po ferrous sulfate. Awaiting serology (3) HTN (hypertension) Plan: Stable on current regimen Continue to monitor and adjust hypertensive regimen as indicated. (4) Secondary hyperparathyroidism Plan: With vitamin D deficiency. Start on cholecalciferol. Mariluz Garcia MD February 15, 2017 15:37
--- NOTE | 2017-02-15 20:14 | PD.POD ---
Subjective Podiatric Problems s/p left hallux I&D with on 02/13/17. Patient is complaining of pain , but states that over all he feels fine. His WBC is normalizing and he denies any n/v/f/h/c/sob. He is anxious to be d/c'd home to take care of his cat. Pain score: 5 Past Med/Surg/Social History Past Medical History Cardiovascular: REPORTS HX OF: Hyperlipidemia, Hypertension Infectious disease: REPORTS HX OF: Chickenpox, Measles, Mumps Neurologic: REPORTS HX OF: Peripheral neuropathy Psychiatric: REPORTS HX OF: Bipolar disorder Past Surgical History HEENT: REPORTS HX OF: Other eye surgery Gastrointestinal: REPORTS HX OF: Cholecystectomy, Hernia repair Breast: DENIES HX OF: Mastectomy, bilateral, Mastectomy, left, Mastectomy, right Social History Smoking Status: Heavy Tobacco Smoker Objective Vital Signs Vital Signs Date Time Temp Pulse Resp B/P Pulse Ox O2 Delivery O2 Flow Rate FiO2 02/15/17 16:00 97.0 78 18 127/85 96 02/15/17 12:00 98.6 88 18 112/74 97 02/15/17 09:13 Room Air 02/15/17 08:00 98.3 66 20 114/71 99 02/15/17 04:00 98.0 86 20 116/82 98 02/15/17 04:00 Room Air 02/15/17 00:00 Room Air 02/15/17 00:00 98.4 73 18 105/58 95 Coded Allergies: Haldol (Verified Allergy, Severe, TONGUE SWELLS, 11/20/15) [place] (Verified Allergy, Severe, OVER DOSED ON IT, 11/20/15) Penicillin (Verified Allergy, Severe, RASH, 11/20/15) Seroquel (Verified Allergy, Severe, HIVES, 11/20/15) Thorazine (Verified Allergy, Severe, SOB, 11/20/15) 10/26/04: PER PT, HE HAS BEEN TAKING STELAZINE SINCE 13 YEARS OLD --- ALTHOUGH HIS RECORD INDICATES AN ALLERGY TO THORAZINE. 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 Assessment & Plan A/P 1) Left hallux stage 2/3 hallux ulcer with resolving cellulitis, s/p I&D 02/13 -pathology is positive for acute OM of the hallux. I spoke to the patient in detail about amputation versus iv abx. He would like to try iv abx. His biggest concern is transportation. I explained that the transplant case manager may be able to help arrange medical transportation, but it is often insurance dependent. -pt will need HHC at d/c for wound care and for iv abx. -WBAT in surgical shoe -ok to d/c from a podiatry standpoint once all outpt arrangements are made -f/u with in 3-5 days after d/c Vicki Jo DPM February 15, 2017 20:14
[2017-02-15] MEDS: ATORVASTATIN 40 MG TAB PO SCH (20:51)
[2017-02-16] MEDS: CLINDAMYCIN INJ 600 MG in SODIUM CHLORIDE 0.9% INJ 100 ML IV SCH ×2 (04:00→10:57)
[2017-02-16 04:44] VITALS: BP 111/67; PULSE 64; RESP 16; TEMP 97.6; O2SAT 96
[2017-02-16 08:00] VITALS: BP 119/71; PULSE 75; RESP 18; TEMP 98.4; O2SAT 94
[2017-02-16] MEDS: FERROUS SULFATE 325 MG (65 MG ELEMENTAL IRON) TAB PO SCH (08:53)
[2017-02-16] MEDS: METOPROLOL SUCCINATE 25 MG EXTENDED RELEASE TAB PO SCH (08:53)
[2017-02-16] MEDS: CHOLECALCIFEROL (VIT D3) 1000 UNIT TAB PO SCH (08:53)
[2017-02-16] MEDS: TRIHEXYPHENIDYL HCL 2 MG TAB PO SCH (08:56)
[2017-02-16] MEDS: ZIPRASIDONE HCL 80 MG CAP PO SCH ×2 (08:56→21:20)
[2017-02-16] MEDS: PANTOPRAZOLE SOD 20 MG DELAYED RELEASE TAB PO SCH (08:56)
[2017-02-16] MEDS: GABAPENTIN 300 MG CAP PO SCH ×2 (08:56→21:20)
[2017-02-16] MEDS: SODIUM CHLORIDE 0.9% FLUSH 10 ML FLUSH IV FLUSH SCH ×2 (08:58→21:20)
[2017-02-16] MEDS: NICOTINE 21 MG/24 HR PATCH T-DERMAL SCH (08:59)
[2017-02-16] MEDS: REMOVE OLD PATCH T-DERMAL SCH (08:59)
--- NOTE | 2017-02-16 09:54 | HHI.PR ---
Subjective Remarks Sitting on side of bed and ambulating prn, encouraged to elevate Alert , responsive foot pain controlled Afebrile Left foot wound bandaged clean dry and intact (Radha Muller) Objective Objective Results - Vital Signs Date Time Temp Pulse Resp B/P Pulse Ox O2 Delivery O2 Flow Rate FiO2 02/16/17 08:00 98.4 75 18 119/71 94 02/16/17 04:44 Room Air 02/16/17 04:44 97.6 64 16 111/67 96 02/15/17 23:18 97.3 61 16 108/61 94 02/15/17 23:18 Room Air 02/15/17 20:20 Room Air 02/15/17 20:20 97.7 76 16 134/62 99 02/15/17 16:00 97.0 78 18 127/85 96 02/15/17 12:00 98.6 88 18 112/74 97 I/O 02/15/17 02/15/17 02/15/17 02/16/17 02/16/17 02/16/17 07:00 15:00 23:00 07:00 15:00 23:00 Intake Total 240 ml 360 ml 1933 ml 673 ml Output Total 500 ml Balance -260 ml 360 ml 1933 ml 673 ml Intake Oral 240 ml 360 ml 720 ml 240 ml IV Total 1213 ml 433 ml Output Urine Total 500 ml # Voids 2 1 1 # Bowel Movements 1 0 0 0 (Radha Muller) Result Diagram: 02/15/17 0650 02/15/17 0650 Medications and IVs Administered Medications Medications (Trade) Dose Ordered Sig/Kwadwo Route PRN Reason Start Time Stop Time Status Last Admin Dose Admin Sodium Chloride (NS Flush) 2 ml BID IV FLUSH 02/11/17 21:00 02/14/17 09:16 Ondansetron HCl (Zofran Inj) 4 mg Q6H PRN IVP NAUSEA OR VOMITING 02/11/17 19:00 02/15/17 16:17 Atorvastatin Calcium (Lipitor) 40 mg HS PO 02/12/17 21:00 02/15/17 20:51 Trihexyphenidyl HCl (Artane) 2 mg DAILY PO 02/13/17 09:00 02/16/17 08:56 Ziprasidone (Geodon) 80 mg BID PO 02/12/17 21:00 02/16/17 08:56 Pantoprazole Sodium (Protonix) 20 mg DAILY PO 02/13/17 09:00 02/16/17 08:56 Gabapentin (Neurontin) 300 mg BID PO 02/12/17 13:00 02/16/17 08:56 Metoprolol Succinate 12.5 mg 12.5 mg DAILY PO 02/14/17 09:00 02/16/17 08:53 Clindamycin Phosphate/Sodium Chloride (Cleocin Inj/NS Inj) 104 ml @ 208 mls/hr Q6H IV 02/14/17 10:00 02/16/17 04:00 Nicotine (Habitrol 21 Mg Patch.24 Hr) 1 patch DAILY T-DERMAL 02/14/17 10:00 02/16/17 08:59 Miscellaneous Information 1 DAILY T-DERMAL 02/15/17 09:00 02/15/17 09:28 Cholecalciferol (Vitamin D3) 2,000 units DAILY PO 02/14/17 10:30 02/16/17 08:53 Ferrous Sulfate 325 mg 325 mg DAILY PO 02/14/17 10:30 02/16/17 08:53 Sodium Chloride (1/2 NS 1000 ml Inj) 1,000 ml @ 84 mls/hr [id number] IV 02/14/17 11:30 02/15/17 23:15 Collagenase (Santyl Oint) 1 applic DAILY TOPICAL 02/15/17 09:00 02/15/17 09:24 (Radha Muller) ROS General: Other (10 point ROS done, positives noted, otherwse unremarkable) Skin: Other (trace edema LE, skin dry scaly) (Radha Muller) Physical Exam Physical Exam PHYSICAL EXAMINATION GENERAL: This is a slim male who appears to be in no acute distress. He is alert and awake, HEAD: Normocephalic without any lesion or mass noted. Facial features appear symmetric. OROPHARYNGEAL: Oropharynx without erythema or edema. NECK: Supple. Trachea midline without deviation. CARDIAC: Regular rhythm, regular rate, S1 and S2 are heard. LUNGS: Clear to auscultation bilaterally. ABDOMEN: Soft, nontender, no organomegaly or masses. Bowel sounds are heard in all four quadrants. No rebound. No guarding. EXTREMITIES: no rt. leg edema. Lt foot dressing CDI, wrapped , wound care NEUROLOGICAL: Patient mood and affect appropriate. No focal deficit SKIN:Warm and moist Objective Remarks Im doing ok (Radha Muller) A/P Assessment and Plan Assessment and Plan Podiatry Dr. Lai has evaluated patient , appreciate expert opinion Cultures positive for group B beta strep, no sensitivity back yet. Plan for IV antibiotic therapy and home health, isolation leukocytosis resolved, Activity, sitting on side of bed, encouraged patient to elevate lower extremities as much as possible Left hallux stage 2/3 hallux ulcer with resolving cellulitis, s/p I&D 02/13 new wound care orders placed for erythema at wound site may need a repeat debridement dependent on healing process and patient's WBC count. Pain management Acute on chronic renal injury, continues Continue IV antibiotics and hydration Peripheral neuropathy, on gabapentin Medical management Schizoaffective disorder, stable, follows up with psychiatrist at [facility] Medical management, stable for now with some mild anxiety History DVT, on chronic anticoagulation Coumadin therapy per pharmacy Anemia, secondary to probable chronic disease, stable continue to monitor Tobacco abuse and dependence, nicotine patch ordered, and discussed plan of no smoking DC planning when IV plan of care and reports back for treatment regimen. Home health D/W RN D/W Dr. Farris, seen on his behalf D/W pt (Radha Muller) Assessment and Plan Patient seen and examined as above Biopsy report seen Culture report seen Plan for infectious disease Dr. ayoub Discussed with patient Plan of care discussed with PICK UP Change antibiotic to Levaquin Discussed with RN Patient doesn't want IV fluid continuous will DC it (Rod Farris MD) Radha Muller February 16, 2017 09:54 Rod Farris MD February 16, 2017 13:03
--- NOTE | 2017-02-16 09:56 | HHI.FF ---
Face to Face Verification Diagnosis: (1) Wound infection (2) Peripheral neuropathy (3) Schizoaffective disorder (4) Abscess of left great toe (5) HTN (hypertension) (6) Anemia Home Health Nursing Order: Wound care and dressing changes Nursing assessment with vital signs IV medication administration Home Health Aide Order: To Assist In: Bathing and personal care I have seen patient Edmundo Benavides on 02/16/17. My clinical findings support the need for the requested home health care services because: Med compliance is questionable Limited ability to care for self High risk of falls Infection w/ risk of complications I certify that my clinical findings support that this patient is homebound because: Impaired cognitive ability/safety Need for psychosocial assistance Radha Muller February 16, 2017 09:56
[2017-02-16] MEDS: SODIUM CHLOR 0.45% 1000 ML INJ 1,000 ML IV SCH (11:10)
[2017-02-16 12:00] VITALS: BP 110/57; PULSE 98; RESP 18; TEMP 97.3; O2SAT 97
[2017-02-16] MEDS ORDERED: LEVOFLOXACIN 500 MG PREMIX INJ 100 ML IV ONE (14:00)
[2017-02-16] MEDS: COLLAGENASE OINT 30 GM TUBE TOPICAL SCH (14:15)
[2017-02-16 16:00] VITALS: BP 109/65; PULSE 82; RESP 18; TEMP 98.3; O2SAT 97
--- NOTE | 2017-02-16 18:54 | PD.ID.CON ---
History of Present Illness Service ID Consult Requested By Dr Farris Reason for Consult L hallux osteomyelitis Primary Care Physician Arcenio Ledbetter, DO Diagnoses: History of Present Illness 57 yo male who is extremely poor historian presented to the hospital with a chronic L hallux ulcer 9planar) of several months duraion He had bx of the bone with clx and was found to have acute osteo of proximal phalanx by path He grew out GBS (both clx) along with anaerobic GPC (surface clx alone) He is on IV levaqine He has no fever, chills and no diarrhea, vomiting per RN Pt has renal insufficiency, CKD stage 4 Review of Systems ROS Limitations: Poor Historian Past Family Social History Allergies: Coded Allergies: Haldol (Verified Allergy, Severe, TONGUE SWELLS, 11/20/15) [place] (Verified Allergy, Severe, OVER DOSED ON IT, 11/20/15) Penicillin (Verified Allergy, Severe, RASH, 11/20/15) Seroquel (Verified Allergy, Severe, HIVES, 11/20/15) Thorazine (Verified Allergy, Severe, SOB, 11/20/15) 10/26/04: PER PT, HE HAS BEEN TAKING STELAZINE SINCE 13 YEARS OLD --- ALTHOUGH HIS RECORD INDICATES AN ALLERGY TO THORAZINE. 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 Suspect poor self-care. Past Surgical History Kidney surgery for stones. eye surgery As a child rodrigo gomez 06/2014 Active Ordered Medications Medications where reviewed in EMR Antibiotics Include: levaquine Family History Non-Contributory. Social History + Tobacco., heavy 2ppd since age of 13 No ETOH. No Illicit Drugs. Physical Exam Vital Signs Vital Signs Date Time Temp Pulse Resp B/P Pulse Ox O2 Delivery O2 Flow Rate FiO2 02/16/17 16:00 98.3 82 18 109/65 97 02/16/17 12:00 97.3 98 18 110/57 97 02/16/17 09:00 Room Air 02/16/17 08:00 98.4 75 18 119/71 94 02/16/17 04:44 Room Air 02/16/17 04:44 97.6 64 16 111/67 96 02/15/17 23:18 97.3 61 16 108/61 94 02/15/17 23:18 Room Air 02/15/17 20:20 Room Air 02/15/17 20:20 97.7 76 16 134/62 99 Physical Exam CONSTITUTIONAL/GENERAL: This is an adequately nourished patient, in no apparent distress. Poor hygieene TUBES/LINES/DRAINS: no e/o infx, periferal lnes only SKIN: No jaundice, rashes, or lesions.Skin temperature appropriate. Not diaphoretic. HEAD: Atraumatic. Normocephalic. EYES: Pupils equal and round and reactive. Extraocular motions intact. No scleral icterus. No injection or drainage. Fundi not examined. ENT: Hearing grossly normal. Nose without bleeding or purulent drainage. Throat without visible erythema, exudates, masses, or lesions. Edentulous NECK: Trachea midline. Supple, nontender. CARDIOVASCULAR: Regular rate and rhythm without murmurs, gallops, or rubs. No JVD. Peripheral pulses symmetric. RESPIRATORY/CHEST: Symmetric, unlabored respirations. Clear to auscultation. Breath sounds equal bilaterally. No wheezes, rales, or rhonchi. GASTROINTESTINAL: Abdomen soft, non-tender, nondistended. No hepato-splenomegaly , or palpable masses. No guarding. Bowel sounds present. GENITOURINARY: Without palpable bladder distension. MUSCULOSKELETAL: Extremities without clubbing, cyanosis, + chronic 1-2 + edema. Skin is scaly with prominent pachydermatosis Dysplastic nails + Stigmata of vascular insufficiency in b/l feet Stage 4 planta ulcer in L hallux with visible tendon in th wound bed +minimal odorles serous dc + some erythema, edema of the l hallux + dependent rubor B feet LYMPHATICS: No palpable cervical or supraclavicular adenopathy. NEUROLOGICAL: Awake and alert. Motor and sensory grossly within normal limits. Follows commands. Normal speech,, but very poor historian unable to answer a lot of questions Moves all extremities. PSYCHIATRIC: No obvious anxiety/depression. no apparent hallucinations or other psychotic thought process. Laboratory Date/Time Procedure Status Source Growth 02/13/17 11:51 Gram Stain - Final Complete Wound Bone 02/13/17 11:51 Wound Culture - Final Complete Group B Beta Strep 02/13/17 11:51 Fungal Smear - Final Resulted Wound Bone NO FUNGAL ELEMENTS SEEN. 02/13/17 11:51 Fungal Culture Resulted Wound Bone Pending 02/13/17 11:51 Acid Fast Stain - Final Resulted Wound Bone NO ACID FAST BACILLI SEEN 02/13/17 11:51 Mycobacterial Culture Resulted Wound Bone Pending Result Diagram: 02/15/17 0650 02/15/17 0650 Imaging Last Impressions Renal Ultrasound 02/11/17 0000 Signed Impressions: Service Date/Time: Saturday, February 11, 2017 23:56 - CONCLUSION: 1. No evidence of hydronephrosis. 2. Mild increased echogenicity of the renal parenchyma suggesting some chronic medical renal disease. 3. Small bilateral benign-appearing renal cysts. Lobito Thornton MD Foot X-Ray 02/11/17 0000 Signed Impressions: Service Date/Time: Saturday, February 11, 2017 17:29 - CONCLUSION: Inflammatory process great toe without osteomyelitis. Arcenio Catherine MD FACR Foot MRI 02/11/17 0000 Signed Impressions: Service Date/Time: Saturday, February 11, 2017 20:55 - CONCLUSION: Findings worrisome for osteomyelitis involving the great toe distal phalanx Varghese Waldrop MD Assessment and Plan Assessment and Plan Infected non healing plantar ulcer of L hallux, no h/o DM, GBS, anaerobs Osteomyelitis, biosy confirmed, Gropu B strep - S levaquine - R clindamycin Tobaccoism and PVD -ro poor perfusion CKD, stage 4 cont levaquin add flagyl pt needs vascular w/u however, CTA is problematic 2/2 his advanced kidney dz - need to r/o vascular insufficiency and correct it if feasible consult vascular Discussed Condition With Sima Marie MD February 16, 2017 18:54
[2017-02-16 20:00] VITALS: BP 109/53; PULSE 72; RESP 18; TEMP 97.4; O2SAT 96
[2017-02-16] MEDS: ATORVASTATIN 40 MG TAB PO SCH (21:20)
[2017-02-16] MEDS: metroNIDAZOLE 500 MG TAB PO SCH (21:20)
[2017-02-17] VITALS: BP 115/98; PULSE 71; RESP 20; TEMP 97.6; O2SAT 97
[2017-02-17 04:00] VITALS: BP 125/69; PULSE 61; RESP 20; TEMP 97.6; O2SAT 97
[2017-02-17] MEDS: metroNIDAZOLE 500 MG TAB PO SCH ×3 (05:45→21:17)
[2017-02-17 07:49] VITALS: BP 103/68; PULSE 79; RESP 18; TEMP 98.7; O2SAT 97
[2017-02-17] MEDS: FERROUS SULFATE 325 MG (65 MG ELEMENTAL IRON) TAB PO SCH (08:31)
[2017-02-17] MEDS: CHOLECALCIFEROL (VIT D3) 1000 UNIT TAB PO SCH (08:31)
[2017-02-17] MEDS: PANTOPRAZOLE SOD 20 MG DELAYED RELEASE TAB PO SCH (08:32)
[2017-02-17] MEDS: METOPROLOL SUCCINATE 25 MG EXTENDED RELEASE TAB PO SCH (08:32)
[2017-02-17] MEDS: GABAPENTIN 300 MG CAP PO SCH ×2 (08:32→21:17)
[2017-02-17] MEDS: NICOTINE 21 MG/24 HR PATCH T-DERMAL SCH (08:35)
[2017-02-17] MEDS: SODIUM CHLORIDE 0.9% FLUSH 10 ML FLUSH IV FLUSH SCH ×2 (08:54→21:17)
[2017-02-17] MEDS: TRIHEXYPHENIDYL HCL 2 MG TAB PO SCH (08:54)
[2017-02-17] MEDS: COLLAGENASE OINT 30 GM TUBE TOPICAL SCH (08:55)
[2017-02-17] MEDS: ZIPRASIDONE HCL 80 MG CAP PO SCH ×2 (08:55→21:17)
[2017-02-17] MEDS: REMOVE OLD PATCH T-DERMAL SCH (08:55)
--- NOTE | 2017-02-17 10:03 | HHI.PR ---
Addendum to Inpatient Note Addendum Reason: Additional Documentation Additional Information case was dw Varsha Farris, Jose High likelyhood in underlying vascular compnonent to prevent the ulcer from healing will consult vascular CTA will be the most high risk from renal standpoint and should be avoided by Dr Garcia recommendation Sima Portillo MD February 17, 2017 10:03
--- NOTE | 2017-02-17 11:18 | HHI.PR ---
Subjective Remarks no pain no fever anxious to go home seems to have some trouble comprehending his diagnosis and plan of care requesting that I speak to his mother (Melba Tate [facility]) Objective Objective Results - Vital Signs Date Time Temp Pulse Resp B/P Pulse Ox O2 Delivery O2 Flow Rate FiO2 02/17/17 08:00 97 Room Air 02/17/17 07:49 98.7 79 18 103/68 97 02/17/17 04:00 97.6 61 20 125/69 97 02/17/17 00:00 97.6 71 20 115/98 97 02/16/17 20:00 97.4 72 18 109/53 96 02/16/17 19:45 Room Air 02/16/17 16:00 98.3 82 18 109/65 97 02/16/17 12:00 97.3 98 18 110/57 97 I/O 02/16/17 02/16/17 02/16/17 02/17/17 02/17/17 02/17/17 07:00 15:00 23:00 07:00 15:00 23:00 Intake Total 673 ml 480 ml 720 ml Balance 673 ml 480 ml 720 ml Intake Oral 240 ml 480 ml 720 ml IV Total 433 ml # Voids 1 2 3 # Bowel Movements 0 1 1 (Melba TateNatalia HONG) Result Diagram: 02/15/17 0650 02/15/17 0650 Imaging Last Impressions Renal Ultrasound 02/11/17 0000 Signed Impressions: Service Date/Time: Saturday, February 11, 2017 23:56 - CONCLUSION: 1. No evidence of hydronephrosis. 2. Mild increased echogenicity of the renal parenchyma suggesting some chronic medical renal disease. 3. Small bilateral benign-appearing renal cysts. Lobito Thornton MD Foot X-Ray 02/11/17 0000 Signed Impressions: Service Date/Time: Saturday, February 11, 2017 17:29 - CONCLUSION: Inflammatory process great toe without osteomyelitis. Arcenio Catherine MD FACR Foot MRI 02/11/17 0000 Signed Impressions: Service Date/Time: Saturday, February 11, 2017 20:55 - CONCLUSION: Findings worrisome for osteomyelitis involving the great toe distal phalanx Varghese Waldrop MD Other Results Date/Time Procedure Status Source Growth 02/13/17 11:51 Gram Stain - Final Complete Wound Bone 02/13/17 11:51 Wound Culture - Final Complete Group B Beta Strep 02/13/17 11:51 Fungal Smear - Final Resulted Wound Bone NO FUNGAL ELEMENTS SEEN. 02/13/17 11:51 Fungal Culture Resulted Wound Bone Pending 02/13/17 11:51 Acid Fast Stain - Final Resulted Wound Bone NO ACID FAST BACILLI SEEN 02/13/17 11:51 Mycobacterial Culture Resulted Wound Bone Pending (Melba Tate) ROS General: Other (poor historian ) (Melba Tate) Physical Exam Physical Exam GENERAL: This is a well-nourished, well-developed patient, in no apparent distress. SKIN: No rashes, ecchymoses or lesions. Cool and dry. HEAD: Atraumatic. Normocephalic. No temporal or scalp tenderness. EYES: Left eye is strabismus. Pupils reactive No scleral icterus. No injection or drainage. ENT: Nose without bleeding, purulent drainage or septal hematoma. Throat without erythema, tonsillar hypertrophy or exudate. Uvula midline. Airway patent. NECK: Trachea midline. No JVD or lymphadenopathy. Supple, nontender, no meningeal signs. CARDIOVASCULAR: Regular rate and rhythm without murmurs, gallops, or rubs. RESPIRATORY: Clear to auscultation. Breath sounds equal bilaterally. No wheezes , rales, or rhonchi. GASTROINTESTINAL: Abdomen soft, non-tender, nondistended. No hepato-splenomegaly , or palpable masses. No guarding. MUSCULOSKELETAL: Bilateral legs with dry and coarse skin, trace pretibial edema. Left foot with dressing D/I. Pedal pulses are 1+. No other joint abnormality. NEUROLOGICAL: Patient awake alert oriented 3. No focal deficits. Slow to respond. Flat affect. No focal deficit. (Melba Tate) Urinary Catheter: No (Melba Tate) Vascular Central Line Catheter: No (Melba Tate) A/P Diagnosis: (1) Abscess of left great toe (2) ARF (acute renal failure) (3) Schizoaffective disorder (4) Peripheral neuropathy (5) Posterior tibial tendon dysfunction (6) Chronic anticoagulation (7) Hx of deep venous thrombosis (8) Acute kidney injury superimposed on CKD Assessment and Plan 57-year-old male presented to the emergency room with left great toe pain, found with an abscess. MRI concerning for possible osteomyelitis. Had I&D in the emergency room, cultures obtained and started on empiric antibiotics Podiatry has been consulted, Dr. Lai has evaluated patient and plans to take him to the OR today for incision and drainage. INR down to 2 -Continue with empiric antibiotics -Cultures positive for group B beta strep -S/P I/D 02/13 -pt doesn't want amputation prefers IV abx however upon further conversation, he appears to have some difficulty understanding about the length of antibiotics. He's requesting that I speak to his mother. -Appreciate ID input, requested vascular input. Vascular consultation pending. Acute on chronic renal injury, has not had follow up as outpatient Renal ultrasound has been ordered, results are noted, no obstruction but presence of chronic kidney disease Dr. Garcia's input appreciated, workup in progress Avoid nephrotoxic agents -improvement in creatinine -Needs to avoid nephrotoxic agents, no NSAIDs Nephrology has signed off the case, recommends follow up as outpatient. Hypertension, stable BP actually 100s Dec. BB -Blood pressure stable Peripheral neuropathy, on gabapentin Continue gabapentin Schizoaffective disorder, stable, follows up with psychiatrist at [facility] Continue home medication History DVT, on chronic anticoagulation Supratherapeutic INR Continue to hold Coumadin -INR 1.3 -Start heparin 5000 units subcutaneous twice a day, we'll hold off on starting Coumadin until evaluated by vascular surgery. Anemia, drop in hemoglobin, possibly dilutional -follow CBC -Monitor for bleeding -Started on by mouth iron Heparin for DVT prophylaxis Case management consultation for home health care, IV antibiotics. Patient will benefit from from assisted living facility placement We'll wait for vascular input Discharge planning pending, possibly to SNF/[facility] versus home with home healthcare and 1-2 days. D/W RN D/W Dr. Farris D/W pt D/W pt's mother, she is currently at an assisted-living facility. Will prefer that patient go to an assisted living facility, doesn't believe the patient can' t care for himself. Patient has problems with comprehension, he does not appear to have a good understanding of his clinical condition. Patient has a case assembler in the community. We'll have case management reach out to them to evaluate for possible placement in an assisted living facility This patient was seen by myself and Dr. Farris, this note is written on his behalf (Melba Tate) Assessment and Plan pt seen and examined as above labs and meds reviewed plan of care dw scanning coordinator dw pt dw rn [facility] help dw ID for vascular sx consult (Rod Farris MD) Problem Qualifiers (1) ARF (acute renal failure): Qualified Code: N17.9 - Acute renal failure, unspecified acute renal failure type (2) Schizoaffective disorder: Qualified Code: F25.9 - Schizoaffective disorder, unspecified type (3) Peripheral neuropathy: Qualified Code: G62.9 - Peripheral polyneuropathy Melba Tate February 17, 2017 11:18 Rod Farris MD February 17, 2017 16:35
[2017-02-17 12:00] VITALS: BP 103/66; PULSE 62; RESP 18; TEMP 97.9; O2SAT 98
[2017-02-17] MEDS: LEVOFLOXACIN 250 MG PREMIX INJ 50 ML IV SCH (13:51)
--- NOTE | 2017-02-17 15:58 | HHI.NPPN ---
Subjective History of Present Illness This patient is a 57-year-old male apparently with a history of multiple medical problems including peripheral vascular disease, COPD, tobacco use and chronic kidney disease based on previous laboratory results. Patient noted to have had a serum creatinine level of 1.84 with an estimated GFR of 38 June. Patient presented with a left hallux infection requiring I&D. Came to the hospital on the insistence of a friend. On presentation creatinine level noted to be elevated as indicated below. Patient denies using NSAIDs at home and apparently was aware of his kidney dysfunction as he was told by his primary care physician that his kidneys were failing. Has not seen a industrial gas servicer helper previously by history. Denies any urological problems. Interval History Patient anxious to get home. No verbal complaints. Review of Systems General Constitutional: Fatigue Objective Data Data 02/16/17 02/17/17 19:00 07:00 Intake Total 480 ml 720 ml Balance 480 ml 720 ml Intake Oral 480 ml 720 ml # Voids 2 3 # Bowel Movements 1 1 Vital Signs Date Time Temp Pulse Resp B/P Pulse Ox O2 Delivery O2 Flow Rate FiO2 02/17/17 12:00 97.9 62 18 103/66 98 02/17/17 08:00 97 Room Air 02/17/17 07:49 98.7 79 18 103/68 97 02/17/17 04:00 97.6 61 20 125/69 97 02/17/17 00:00 97.6 71 20 115/98 97 02/16/17 20:00 97.4 72 18 109/53 96 02/16/17 19:45 Room Air 02/16/17 16:00 98.3 82 18 109/65 97 -: 02/15/17 0650 02/15/17 0650 Physical Exam General Appearance: No Acute Distress, Comfortable Neck Neck Exam: Trachea Midline Pulmonary Resp Exam: Clear Bilaterally, Breath Sounds Equal, No Distress Cardiology CV Exam: Regular, Normal Sinus Rhythm, Good Perfusion Gastrointestinal/Abdomen GI Exam: Soft, Non-Tender Integumentary Skin Exam: Warm, Dry, Intact Extremeties Extremities Exam: No Edema Neurologic Neuro Exam: Alert, Awake, Speech Clear Psychiatric Psych Exam: Appropriate Responses Assessment/Plan Discussed Condition With: Patient Problem List: (1) CKD (chronic kidney disease) stage 4, GFR 15-29 ml/min Plan: Case was discussed with infectious disease i.e. Dr. Portillo this morning. Apparently consideration is being given to evaluate the patient to determine whether not significant PAD is present. Estimated risk for patient developing acute renal failure post contrast exposure estimated to be 14% with an estimated risk for dialysis of 0.12%. However given the patient's overall debilitated condition and probable generalized atherosclerotic disease I believe that the risk is somewhat higher. If iodine contrast study is to be performed recommend IV hydration with normal saline at approximately 1 mL per kilogram per hour 12 hours and 12 hours postprocedure utilizing low osmolar contrast agent. Dye load with a CTA would probably be significantly higher than an angiogram utilizing combination of CO2/ contrast agent but will defer to vascular regarding which imaging study if any they would like to proceed with. Mucomyst 1200 mg twice a day starting day prior to contrast study with a total of 4 doses may also be useful. Risk- benefit ratio of contrast exposure needs to be considered and the patient would have to agree prior to procedure. I discussed all the above with the patient and he has not yet indicated a decision. Please call with any questions. I believe that the patient's creatinine level is at or close to his baseline level. I advised the patient the importance of follow-up with a industrial gas servicer helper post discharge. He was also advised of the severity of his CKD and need to avoid NSAIDs for analgesia post discharge. Medications should be adjusted for the patient's estimated GFR if clinically indicated. Avoid agents with significant potential for nephrotoxicity possible including NSAIDs for analgesia, iodine contrast agents. Gadolinium is contraindicated if the GFR is below 30. (2) Anemia Plan: Improved slightly with low Fe stores. Start po ferrous sulfate. Awaiting serology (3) HTN (hypertension) Plan: Stable on current regimen Continue to monitor and adjust hypertensive regimen as indicated. (4) Secondary hyperparathyroidism Plan: With vitamin D deficiency. Start on cholecalciferol. Plan Total time spent in patient care 30 minutes. Mariluz Garcia MD February 17, 2017 15:58
[2017-02-17 16:00] VITALS: BP 136/77; PULSE 69; RESP 18; TEMP 97.9; O2SAT 96
[2017-02-17 19:00] VITALS: BP 135/71; PULSE 102; RESP 16; TEMP 97.9; O2SAT 98
[2017-02-17] MEDS: HEPARIN SODIUM - SQ 10,000 UNITS/ML VIAL SQ SCH (21:16)
[2017-02-17] MEDS: ATORVASTATIN 40 MG TAB PO SCH (21:17)
[2017-02-17 23:53] LABS: KAPPA/LAMBDA FREE 1.58 (0.26-1.65)
[2017-02-18] VITALS: BP 106/68; PULSE 71; RESP 17; TEMP 98.4; O2SAT 98
[2017-02-18 04:00] VITALS: BP 91/56; PULSE 76; RESP 16; TEMP 97.7; O2SAT 96
[2017-02-18] MEDS: metroNIDAZOLE 500 MG TAB PO SCH ×3 (06:54→21:33)
[2017-02-18 08:00] VITALS: BP 117/68; PULSE 76; RESP 16; TEMP 97.8; O2SAT 97
[2017-02-18 08:14] LABS: INTERNATIONAL NORMALIZED RATIO 1.2 RATIO
[2017-02-18] MEDS: COLLAGENASE OINT 30 GM TUBE TOPICAL SCH (09:00)
[2017-02-18] MEDS: REMOVE OLD PATCH T-DERMAL SCH (09:00)
[2017-02-18] MEDS: SODIUM CHLORIDE 0.9% FLUSH 10 ML FLUSH IV FLUSH SCH ×2 (09:00→21:34)
[2017-02-18] MEDS: NICOTINE 21 MG/24 HR PATCH T-DERMAL SCH (09:00)
[2017-02-18] MEDS: HEPARIN SODIUM - SQ 10,000 UNITS/ML VIAL SQ SCH ×2 (09:15→21:34)
[2017-02-18] MEDS: CHOLECALCIFEROL (VIT D3) 1000 UNIT TAB PO SCH (09:16)
[2017-02-18] MEDS: METOPROLOL SUCCINATE 25 MG EXTENDED RELEASE TAB PO SCH (09:16)
[2017-02-18] MEDS: FERROUS SULFATE 325 MG (65 MG ELEMENTAL IRON) TAB PO SCH (09:16)
[2017-02-18] MEDS: GABAPENTIN 300 MG CAP PO SCH ×2 (09:16→21:34)
[2017-02-18] MEDS: PANTOPRAZOLE SOD 20 MG DELAYED RELEASE TAB PO SCH (09:16)
[2017-02-18] MEDS: TRIHEXYPHENIDYL HCL 2 MG TAB PO SCH (09:16)
[2017-02-18] MEDS: ZIPRASIDONE HCL 80 MG CAP PO SCH ×2 (09:16→21:33)
--- NOTE | 2017-02-18 09:40 | HHI.PR ---
Subjective Remarks sleeping, awakes to voice no pain no fever anxious to go home informed that I spoke to his mom and she wants him to go to SNF or [facility]. He wants to go home to take care of his 'cat'. Objective Objective Results - Vital Signs Date Time Temp Pulse Resp B/P Pulse Ox O2 Delivery O2 Flow Rate FiO2 02/18/17 08:00 97.8 76 16 117/68 97 02/18/17 04:00 97.7 76 16 91/56 96 02/18/17 00:00 98.4 71 17 106/68 98 02/17/17 20:00 Room Air 02/17/17 19:00 97.9 102 16 135/71 98 02/17/17 16:00 97.9 69 18 136/77 96 02/17/17 12:00 97.9 62 18 103/66 98 I/O 02/17/17 02/17/17 02/17/17 02/18/17 02/18/17 02/18/17 06:59 14:59 22:59 06:59 14:59 22:59 Intake Total 720 ml 960 ml 550 ml 480 ml Balance 720 ml 960 ml 550 ml 480 ml Intake Oral 720 ml 960 ml 480 ml 480 ml IV Total 70 ml # Voids 3 3 2 2 # Bowel Movements 1 1 0 0 Result Diagram: 02/15/17 0650 02/15/17 0650 Imaging Last Impressions Renal Ultrasound 02/11/17 0000 Signed Impressions: Service Date/Time: Saturday, February 11, 2017 23:56 - CONCLUSION: 1. No evidence of hydronephrosis. 2. Mild increased echogenicity of the renal parenchyma suggesting some chronic medical renal disease. 3. Small bilateral benign-appearing renal cysts. Lobito Thornton MD Foot X-Ray 02/11/17 0000 Signed Impressions: Service Date/Time: Saturday, February 11, 2017 17:29 - CONCLUSION: Inflammatory process great toe without osteomyelitis. Arcenio Catherine MD FACR Foot MRI 02/11/17 0000 Signed Impressions: Service Date/Time: Saturday, February 11, 2017 20:55 - CONCLUSION: Findings worrisome for osteomyelitis involving the great toe distal phalanx Varghese Waldrop MD Other Results Laboratory Tests Test 02/18/17 06:15 Prothrombin Time 13.0 Prothromb Time International 1.2 Ratio Date/Time Procedure Status Source Growth 02/13/17 11:51 Gram Stain - Final Complete Wound Bone 02/13/17 11:51 Wound Culture - Final Complete Group B Beta Strep 02/13/17 11:51 Fungal Smear - Final Resulted Wound Bone NO FUNGAL ELEMENTS SEEN. 02/13/17 11:51 Fungal Culture Resulted Wound Bone Pending 02/13/17 11:51 Acid Fast Stain - Final Resulted Wound Bone NO ACID FAST BACILLI SEEN 02/13/17 11:51 Mycobacterial Culture Resulted Wound Bone Pending ROS General: Other (poor historian ) Physical Exam Physical Exam GENERAL: This is a well-nourished, well-developed patient, in no apparent distress. SKIN: No rashes, ecchymoses or lesions. Cool and dry. HEAD: Atraumatic. Normocephalic. No temporal or scalp tenderness. EYES: Left eye is strabismus. Pupils reactive No scleral icterus. No injection or drainage. ENT: Nose without bleeding, purulent drainage or septal hematoma. Throat without erythema, tonsillar hypertrophy or exudate. Uvula midline. Airway patent. NECK: Trachea midline. No JVD or lymphadenopathy. Supple, nontender, no meningeal signs. CARDIOVASCULAR: Regular rate and rhythm without murmurs, gallops, or rubs. RESPIRATORY: Clear to auscultation. Breath sounds equal bilaterally. No wheezes , rales, or rhonchi. GASTROINTESTINAL: Abdomen soft, non-tender, nondistended. No hepato-splenomegaly , or palpable masses. No guarding. MUSCULOSKELETAL: Bilateral legs with dry and coarse skin, trace pretibial edema. Left foot with dressing D/I. Pedal pulses are 1+. No other joint abnormality. NEUROLOGICAL: Patient awake alert oriented 3. No focal deficits. Slow to respond. Flat affect. No focal deficit. Urinary Catheter: No Vascular Central Line Catheter: No A/P Diagnosis: (1) Abscess of left great toe (2) ARF (acute renal failure) (3) Schizoaffective disorder (4) Peripheral neuropathy (5) Posterior tibial tendon dysfunction (6) Chronic anticoagulation (7) Hx of deep venous thrombosis (8) Acute kidney injury superimposed on CKD Assessment and Plan 57-year-old male presented to the emergency room with left great toe pain, found with an abscess. MRI concerning for possible osteomyelitis. Had I&D in the emergency room, cultures obtained and started on empiric antibiotics Podiatry has been consulted, Dr. Lai has evaluated patient and plans to take him to the OR today for incision and drainage. INR down to 2 -Continue with empiric antibiotics -Cultures positive for group B beta strep -S/P I/D 02/13 -pt doesn't want amputation prefers IV abx however upon further conversation, he appears to have some difficulty understanding about the length of antibiotics. Spoke to pt's mother, she is at [facility]. Wants pt to go to rehab or [facility]. Concerned that he is not able to care for himself. -Appreciate ID input, requested vascular input. Vascular consultation pending. -Arterial doppler pending Acute on chronic renal injury, has not had follow up as outpatient Renal ultrasound has been ordered, results are noted, no obstruction but presence of chronic kidney disease Dr. Garcia's input appreciated, workup in progress Avoid nephrotoxic agents -improvement in creatinine -Needs to avoid nephrotoxic agents, no NSAIDs Nephrology has signed off the case, recommends follow up as outpatient. Hypertension, stable BP actually 100s Dec. BB -Blood pressure stable Peripheral neuropathy, on gabapentin Continue gabapentin Schizoaffective disorder, stable, follows up with psychiatrist at [facility] Continue home medication History DVT, on chronic anticoagulation Supratherapeutic INR Continue to hold Coumadin -INR 1.2 -continue with heparin 5000 units subcutaneous twice a day, we'll hold off on starting Coumadin until evaluated by vascular surgery. Anemia, drop in hemoglobin, possibly dilutional -follow CBC -Monitor for bleeding -Started on by mouth iron Heparin for DVT prophylaxis Case management consultation for home health care, IV antibiotics. Patient will benefit from from assisted living facility placement We'll wait for vascular input Arterial doppler pending Discharge planning pending, possibly to SNF/[facility] versus home with home healthcare and 1-2 days. will wait for vascular input, for now continue Heparin sq. D/W RN D/W Dr. Farris D/W pt D/W pt's mother, she is currently at an assisted-living facility. Will prefer that patient go to an assisted living facility, doesn't believe the patient can' t care for himself. Patient has problems with comprehension, he does not appear to have a good understanding of his clinical condition. Patient has a piano case and bench assembler in the community. We'll have case management reach out to them to evaluate for possible placement in an assisted living facility This patient was seen by myself and Dr. Farris, this note is written on his behalf Problem Qualifiers (1) ARF (acute renal failure): Qualified Code: N17.9 - Acute renal failure, unspecified acute renal failure type (2) Schizoaffective disorder: Qualified Code: F25.9 - Schizoaffective disorder, unspecified type (3) Peripheral neuropathy: Qualified Code: G62.9 - Peripheral polyneuropathy Melba Tate [facility] February 18, 2017 09:39
--- NOTE | 2017-02-18 11:08 | RADRPT ---
EXAM DATE/TIME: 02/18/2017 10:11 [facility] COMPARISON: US CAROTID ARTERIES, May 31, 2014, 9:53. INDICATIONS : Syncope. MEDICAL HISTORY : Hypercholesterolemia. Methicillin-resistant Staphylococcus aureus. Gastroesophageal reflux disease. H ypertension. DVT. Hyperlipidemia. Renal failure. Hiatal hernia. Arthritis. Schizophrenia. SURGICAL HISTORY : Cholecystectomy. ENCOUNTER: Initial ACUITY: 1 day PAIN SCORE: 1/10 LOCATION: Bilateral neck PEAK SYSTOLIC VELOCITIES (cm/sec): ICA/CCA RATIO: Right: 0.7 Left: 1.0 ICA: Right: 72 Left: 81 CCA: Right: 97 Left: 81 ECA: Right: 64 Left: 66 VERTEBRAL: Right: 57 antegrade Left: 48 antegrade Elevated flow velocities and ICA/CCA ratios have been found to correlate with increased degrees of vessel stenosis, calculated as percentage of diameter relative to a normal segment of distal ICA/CCA FINDINGS: RIGHT CAROTID: No significant stenosis is visualized. The waveforms are within normal limits. LEFT CAROTID: No significant stenosis is visualized. The waveforms are within normal limits. VERTEBRAL ARTERIES: Antegrade flow is seen in both vertebral arteries. MISCELLANEOUS: None. CONCLUSION: 1. No evidence of hemodynamically significant lesion. Edmundo Doherty MD on February 18, 2017 at 11:06 Board Certified Radiologist. This report was verified electronically.
[2017-02-18 12:00] VITALS: BP 112/69; PULSE 60; RESP 16; TEMP 97.7; O2SAT 95
[2017-02-18] MEDS: LEVOFLOXACIN 250 MG PREMIX INJ 50 ML IV SCH (14:00)
--- NOTE | 2017-02-18 14:31 | RADRPT ---
EXAM DATE/TIME: 02/18/2017 00:00 [facility] COMPARISON: No previous studies available for comparison. INDICATIONS : Left Great Toe Abscess, Cellulitis TECHNIQUE: Four-cuff ankle and brachial pressures were obtained. Pulse cuff waveform tracings of the ankles were recorded, and ankle-brachial indices were calculated. PRESSURES (mmHg): Brachial (arm): Right IV SITE Left 101 Ankle: Right 105 Left 102 JESSY: Right 1.04 Left 1.01 TBI: Right 1.09 Left 1.06 PULSED CUFF WAVEFORMS: Demonstrate normal amplitude bilaterally. CONCLUSION: Unremarkable ankle brachial indices. Sina Camilo MD on February 18, 2017 at 14:29 Board Certified Radiologist. This report was verified electronically.
[2017-02-18 16:00] VITALS: BP 107/58; PULSE 88; RESP 16; TEMP 97.4; O2SAT 95
[2017-02-18] MEDS: ATORVASTATIN 40 MG TAB PO SCH (21:34)
[2017-02-18 22:36] VITALS: BP 109/62; PULSE 62; RESP 22; TEMP 98; O2SAT 95
--- NOTE | 2017-02-18 22:50 | MP ---
cc: SARY BECKHAM DATE OF SURGERY 02/17/[address] Sima Portillo REASON FOR CONSULTATION Peripheral vascular evaluation/status post debridement abscess left great toe. HISTORY OF PRESENT ILLNESS This 57-year-old bipolar male with schizoaffective disorder, chronic peripheral neuropathy, prolonged tobacco use with COPD presented to the emergency room five days ago complaining of pain in his left great toe. Mr. Benavides is a poor historian. He tells me that approximately three months ago he developed discomfort within the left great toe, was evaluated by Dr. England and told "he had a wart on his toe". He was treated conservatively. The day of admission, the left great toe plantar aspect was notably erythematosus and painful. Lab studies revealed mild leukocytosis with an elevated C-reactive protein as well as significant renal dysfunction. An I&D of the left great toe plantar abscess was performed in the emergency room. Cultures were obtained and he was empirically begun on IV antibiotics. The following day, Dr. Lai performed more thorough debridement in the operating room. X-rays and MRI scans suggest osteomyelitis within the distal phalanx of the left great toe. He is presently undergoing routine wound dressings with Santyl appointment and continues on IV antibiotics. The pain is his toe has markedly diminished in conjunction with diminished inflammation. Mr. Benavides admits to chronic numbness within both feet. He has also experienced chronic edema below the knees. He denies any symptoms suggestive of claudication or critical ischemia. Per medical record, history of deep venous thrombosis and on Coumadin therapy. PAST MEDICAL HISTORY 1. Bipolar/schizoaffective disorder. 2. Hypertension. 3. Hyperlipidemia. 4. COPD - chronic smoker. 5. History of DVT on therapeutic Coumadin anticoagulation. 6. Hiatal hernia. 7. Chronic kidney disease. 8. Prior history of head trauma, seizures and suicide attempt. PAST SURGERIES 1. Ureterolithotomy. 2. Laparoscopic cholecystectomy. MEDICATIONS Current medications are detailed in the reconciliation form. PHYSICAL EXAMINATION VITAL SIGNS: Temp 98.8, pulse 72, respirations 18, BP 115/60. GENERAL: A well-developed, well-nourished disheveled appearing 57-year-old male with schizoaffective affect. Currently he is pleasant and responds appropriately to questions and commands, but cognitive function as far as fund of knowledge, insight and remote recall are impaired. LUNGS: His lungs are symmetrically expanded with diminished breath sounds throughout. CARDIAC: Rhythm is sinus. No rubs, gallops or murmurs. No carotid bruits. No neck vein distension or HJR. No cervical lymphadenopathy. ABDOMEN: Soft, nontender. No hepatic or splenic enlargement. No palpable aneurysm. EXTREMITIES: Good joint range of motion. Diffuse, symmetrical edema is present below the knees typical of venostasis. Negative Homans' sign. No calf tenderness. No significant superficial venous varicosities Are noted. I removed the bandage from the left great toe exposing an oval-shaped approximately 20 mm diameter crater formed, debrided ulcer. The edges of the ulcer are granulating. There is no fluctuance or drainage. No crepitance. Radial, femoral, popliteal and posterior tibial/dorsalis pedis pulses are 2+ and symmetrical bilaterally. Both feel are warm with brisk capillary refill. NEUROLOGIC: Stocking-glove hypesthesia typical of significant peripheral neuropathy. No gross focal deficits. Flat, schizoaffective affect. I reviewed the recent lab and imaging reports. IMPRESSION Trophic ulcer left great toe with distal phalangeal osteomyelitis. PLAN This gentleman's perfusion appears grossly adequate to support primary healing of the ulceration with conservative wound care/antibiotics versus potential digital amputation. His chronic kidney disease significantly increases risk of contrast nephropathy associated with any type of contrast angiographic imaging. I see no need to pursue such imaging. Instead, we will document adequacy of perfusion with segmental Doppler studies. Thank you for allowing me to participate in this gentleman's care. MD BRIANNA Reynolds/ /5:40 PM /10:31 PM
[2017-02-19 00:51] VITALS: BP 106/68; PULSE 65; RESP 20; TEMP 97.8; O2SAT 94
[2017-02-19 04:30] VITALS: BP 111/78; PULSE 66; RESP 20; TEMP 98.8; O2SAT 96
[2017-02-19] MEDS: metroNIDAZOLE 500 MG TAB PO SCH ×2 (06:25→13:30)
[2017-02-19 08:00] VITALS: BP 107/58; PULSE 61; RESP 22; TEMP 98.2; O2SAT 94
[2017-02-19] MEDS: PANTOPRAZOLE SOD 20 MG DELAYED RELEASE TAB PO SCH (09:29)
[2017-02-19] MEDS: REMOVE OLD PATCH T-DERMAL SCH (09:29)
[2017-02-19] MEDS: FERROUS SULFATE 325 MG (65 MG ELEMENTAL IRON) TAB PO SCH (09:29)
[2017-02-19] MEDS: CHOLECALCIFEROL (VIT D3) 1000 UNIT TAB PO SCH (09:29)
[2017-02-19] MEDS: ZIPRASIDONE HCL 80 MG CAP PO SCH (09:29)
[2017-02-19] MEDS: NICOTINE 21 MG/24 HR PATCH T-DERMAL SCH (09:29)
[2017-02-19] MEDS: GABAPENTIN 300 MG CAP PO SCH (09:29)
[2017-02-19] MEDS: METOPROLOL SUCCINATE 25 MG EXTENDED RELEASE TAB PO SCH (09:29)
[2017-02-19] MEDS: TRIHEXYPHENIDYL HCL 2 MG TAB PO SCH (09:30)
[2017-02-19] MEDS: SODIUM CHLORIDE 0.9% FLUSH 10 ML FLUSH IV FLUSH SCH (09:30)
[2017-02-19] MEDS: COLLAGENASE OINT 30 GM TUBE TOPICAL SCH (09:30)
[2017-02-19] MEDS: HEPARIN SODIUM - SQ 10,000 UNITS/ML VIAL SQ SCH (09:30)
--- NOTE | 2017-02-19 09:36 | HHI.PR ---
Subjective Remarks sleeping, awakes to voice no pain no fever no complaints body odor noted, pt. states he doesn't shower often at home Objective Objective Results - Vital Signs Date Time Temp Pulse Resp B/P Pulse Ox O2 Delivery O2 Flow Rate FiO2 02/19/17 04:30 98.8 66 20 111/78 96 02/19/17 00:51 97.8 65 20 106/68 94 02/18/17 22:36 98.0 62 22 109/62 95 02/18/17 19:45 Room Air 02/18/17 16:00 97.4 88 16 107/58 95 02/18/17 12:00 97.7 60 16 112/69 95 I/O 02/18/17 02/18/17 02/18/17 02/19/17 02/19/17 02/19/17 07:00 15:00 23:00 07:00 15:00 23:00 Intake Total 480 ml 480 ml 600 ml 820 ml Output Total 250 ml 600 ml Balance 480 ml 230 ml 0 ml 820 ml Intake Oral 480 ml 480 ml 600 ml 820 ml Output Urine Total 250 ml 600 ml # Voids 2 1 3 # Bowel Movements 0 1 Result Diagram: 02/15/17 0650 02/15/17 0650 Imaging Last Impressions Renal Ultrasound 02/11/17 0000 Signed Impressions: Service Date/Time: Saturday, February 11, 2017 23:56 - CONCLUSION: 1. No evidence of hydronephrosis. 2. Mild increased echogenicity of the renal parenchyma suggesting some chronic medical renal disease. 3. Small bilateral benign-appearing renal cysts. Lobito Thornton MD Foot X-Ray 02/11/17 0000 Signed Impressions: Service Date/Time: Saturday, February 11, 2017 17:29 - CONCLUSION: Inflammatory process great toe without osteomyelitis. Arcenio Catherine MD FACR Foot MRI 02/11/17 0000 Signed Impressions: Service Date/Time: Saturday, February 11, 2017 20:55 - CONCLUSION: Findings worrisome for osteomyelitis involving the great toe distal phalanx Varghese Waldrop MD ROS General: Other (poor historian ) Physical Exam Physical Exam GENERAL: This is a well-nourished, well-developed patient, in no apparent distress. SKIN: No rashes, ecchymoses or lesions. Cool and dry. HEAD: Atraumatic. Normocephalic. No temporal or scalp tenderness. EYES: Left eye is strabismus. Pupils reactive No scleral icterus. No injection or drainage. ENT: Nose without bleeding, purulent drainage or septal hematoma. Throat without erythema, tonsillar hypertrophy or exudate. Uvula midline. Airway patent. NECK: Trachea midline. No JVD or lymphadenopathy. Supple, nontender, no meningeal signs. CARDIOVASCULAR: Regular rate and rhythm without murmurs, gallops, or rubs. RESPIRATORY: Clear to auscultation. Breath sounds equal bilaterally. No wheezes , rales, or rhonchi. GASTROINTESTINAL: Abdomen soft, non-tender, nondistended. No hepato-splenomegaly , or palpable masses. No guarding. MUSCULOSKELETAL: Bilateral legs with dry and coarse skin, trace pretibial edema. Left foot with dressing D/I. Pedal pulses are 1+. No other joint abnormality. NEUROLOGICAL: Patient awake alert oriented 3. No focal deficits. Slow to respond. Flat affect. No focal deficit. Urinary Catheter: No Vascular Central Line Catheter: No A/P Diagnosis: (1) Abscess of left great toe (2) ARF (acute renal failure) (3) Schizoaffective disorder (4) Peripheral neuropathy (5) Posterior tibial tendon dysfunction (6) Chronic anticoagulation (7) Hx of deep venous thrombosis (8) Acute kidney injury superimposed on CKD Assessment and Plan 57-year-old male presented to the emergency room with left great toe pain, found with an abscess. MRI concerning for possible osteomyelitis. Had I&D in the emergency room, cultures obtained and started on empiric antibiotics Podiatry has been consulted, Dr. Lai has evaluated patient and plans to take him to the OR today for incision and drainage. INR down to 2 -Continue with empiric antibiotics -Cultures positive for group B beta strep -S/P I/D 02/13 -pt doesn't want amputation prefers IV abx however upon further conversation, he appears to have some difficulty understanding about the length of antibiotics. Spoke to pt's mother, she is at [facility]. Wants pt to go to rehab or [facility]. Concerned that he is not able to care for himself. -Appreciate ID input -appreciate Dr. Calloway's input, pt. with adequate perfusion. No need for further work up -Arterial doppler results noted, unremarkable -need final ID recommendations for IV abx. May need PICC. Will d/w Dr. Portillo Acute on chronic renal injury, has not had follow up as outpatient Renal ultrasound has been ordered, results are noted, no obstruction but presence of chronic kidney disease Dr. Garcia's input appreciated, workup in progress Avoid nephrotoxic agents -improvement in creatinine -Needs to avoid nephrotoxic agents, no NSAIDs Nephrology has signed off the case, recommends follow up as outpatient. Hypertension, stable BP actually 100s Dec. BB -Blood pressure stable Peripheral neuropathy, on gabapentin Continue gabapentin, at lower dose due to renal dysfunction. Schizoaffective disorder, stable, follows up with psychiatrist at [facility] Continue home medication History DVT, on chronic anticoagulation Supratherapeutic INR -resume Coumadin -continue with heparin 5000 units subcutaneous twice a day, we'll hold off on starting Coumadin until evaluated by vascular surgery. Anemia, drop in hemoglobin, possibly dilutional -follow CBC -Monitor for bleeding -Started on by mouth iron Heparin for DVT prophylaxis CM has arranged [facility]HC, per notes. Pt. has good support form outpatient case management assistant. Will obtain IV abx recommendations resume Coumadin, will have [facility] monitor INR. Plan to dc today with [facility] F/U Dr. Hobbs next week Diet-heart healthy Activity-as tolerated d/w RN, pt. to have a bath before discharge. D/W RN D/W Dr. Farris D/W pt D/W CM This patient was seen by myself and Dr. Farris, this note is written on his behalf Discharge Planning 45 Problem Qualifiers (1) ARF (acute renal failure): Qualified Code: N17.9 - Acute renal failure, unspecified acute renal failure type (2) Schizoaffective disorder: Qualified Code: F25.9 - Schizoaffective disorder, unspecified type (3) Peripheral neuropathy: Qualified Code: G62.9 - Peripheral polyneuropathy Melba Tate February 19, 2017 09:36
[2017-02-19] MEDS ORDERED: NEUR300C PO (09:38)
[2017-02-19] MEDS ORDERED: FERR325T PO (09:38)
--- NOTE | 2017-02-19 09:39 | HHI.DCPOC ---
Discharge Care Plan Diagnosis: (1) Wound infection Your Health Problems Are: Skin Breakdown Inflammation Swelling Goals to Promote Your Health * To prevent worsening of your condition and complications * To maintain your health at the optimal level Directions to Meet Your Goals Take your medications as prescribed Follow your dietary instruction Follow activity as directed Keep your appointments as scheduled Take your immunizations and boosters as scheduled If your symptoms worsen call your PCP, if no PCP go to Urgent Care Center or Emergency Room Smoking is Dangerous to Your Health. Avoid second hand smoke Call the 24-hour hour crisis hotline for domestic abuse at Melba Tate February 19, 2017 09:39
--- NOTE | 2017-02-19 10:32 | HHI.DS ---
Discharge Summary Admission Date February 11, 2017 at 18:59 Discharge Date: February 19, 2017 Admitting Diagnosis L great toe abscess/cellulitis, r/o osteo (1) Abscess of left great toe (2) ARF (acute renal failure) (3) Schizoaffective disorder (4) Peripheral neuropathy (5) Posterior tibial tendon dysfunction (6) Chronic anticoagulation (7) Hx of deep venous thrombosis (8) Acute kidney injury superimposed on CKD Procedures S/P I/D 02/13 CBC/BMP: 02/15/17 0650 02/15/17 0650 Significant Findings Laboratory Tests Test 02/18/17 06:15 Prothrombin Time 13.0 SEC (9.8-11.6) Imaging Last Impressions Carotid Artery Ultrasound 02/18/17 0000 Signed Impressions: Service Date/Time: Saturday, February 18, 2017 10:11 - CONCLUSION: 1. No evidence of hemodynamically significant lesion. Edmundo Doherty MD Renal Ultrasound 02/11/17 0000 Signed Impressions: Service Date/Time: Saturday, February 11, 2017 23:56 - CONCLUSION: 1. No evidence of hydronephrosis. 2. Mild increased echogenicity of the renal parenchyma suggesting some chronic medical renal disease. 3. Small bilateral benign-appearing renal cysts. Lobito Thornton MD Foot X-Ray 02/11/17 0000 Signed Impressions: Service Date/Time: Saturday, February 11, 2017 17:29 - CONCLUSION: Inflammatory process great toe without osteomyelitis. Arcenio Catherine MD FACR Foot MRI 02/11/17 0000 Signed Impressions: Service Date/Time: Saturday, February 11, 2017 20:55 - CONCLUSION: Findings worrisome for osteomyelitis involving the great toe distal phalanx Varghese Waldrop MD Hospital Course This is a 57-year-old male with history of peripheral vascular disease, peripheral neuropathy, history of DVT on Coumadin, schizoaffective disorder, chronic kidney disease, COPD, tobacco abuse. Patient presented to the emergency room complaining a left great toe pain. Patient is a poor historian, indicateD that symptoms have been going on for several months however he told the emergency room physician that it was 7 days. Indicated that started as a wart on his toe and then it became very red and painful. He denied any trauma. He's had difficulty ambulating. He reported that he was seen by Dr. England in the past. Patient was evaluated in emergency room, he was noted with some mild leukocytosis, WBC 15.6. BMP was remarkable for worsening renal dysfunction, BUN 19, creatinine 3.25. Patient indicated he continues to make urine. He did not follow-up with the bolt loader as outpatient. C-reactive protein 19.8. INR was elevated, 4.0. Left foot x-ray revealed abscess to the left great toe. An I&D was performed in the emergency room and cultures were obtained. Patient was started on empiric antibiotics. Patient was admitted overnight, he was evaluated by podiatry who planned to take him to the OR for an incision and drainage. An MRI of the right foot was done and was concerning for possible osteomyelitis. Patient was admitted for further evaluation and treatment for: (1) Abscess of left great toe (2) ARF (acute renal failure) (3) Schizoaffective disorder (4) Peripheral neuropathy (5) Posterior tibial tendon dysfunction (6) Chronic anticoagulation (7) Hx of deep venous thrombosis (8) Acute kidney injury superimposed on CKD During the course of the hospitalization, the following took place: 57-year-old male presented to the emergency room with left great toe pain, found with an abscess. MRI concerning for possible osteomyelitis. Had I&D in the emergency room, cultures obtained and started on empiric antibiotics Podiatry was consulted, Dr. Lai evaluated patient and did I/D on 02/13. -post op course uneventful. Required Vit K to bring down INR -Continue with empiric antibiotics. -ID consulted to manage abx -Cultures positive for group B beta strep -bx from surgery showed osteomyelitis. Podiatry discussed options with patient. -pt did not want amputation preferred IV abx -Infectious disease was concerned about patient's perfusion. Recommended vascular evaluation. Patient unable to have CTA due to renal failure. -Dr. Calloway consulted, arterial Doppler studies ordered. It was unremarkable. Per Dr. Calloway's note, patient had adequate perfusion. No need for further workup. -Discussed discharge plan with infectious disease, oral antibiotics recommended for 3 months. Laboratory workup to be monitored while patient on antibiotics. Acute on chronic renal injury, has not had follow up as outpatient -was hydrated and BMP was followed. Renal ultrasound was ordered, no obstruction but presence of chronic kidney disease Dr. Garcia's input appreciated, workup done Avoided nephrotoxic agents -improvement in creatinine -Needed to avoid nephrotoxic agents, no NSAIDs Nephrology signed off the case, recommended follow up as outpatient. Hypertension, stable BP actually 100s Dec. BB -Blood pressure stable Peripheral neuropathy, on gabapentin Continued gabapentin, at lower dose due to renal dysfunction. Schizoaffective disorder, stable, follows up with psychiatrist at [facility] Continued home medication History DVT, on chronic anticoagulation Supratherapeutic INR initially. Was given Vit K before procedure. -resumed Coumadin before discharge. INR was followed. Anemia, drop in hemoglobin, possibly dilutional, also due to CKD -followed CBC -Monitored for bleeding -no need for transfusion. -Started on by mouth iron Discharge plan was discussed with patient's mother, she was concerned about patient's inability to care for himself due to his psychiatric history and poor comprehension of medical care. Case management consulted to assist with discharge planning. Initially patient was offered discharge to SNF however he declined. florist manager spoke to patient's community service officer and pt. does have good support from them. [facility] arranged to do lab work and monitor INR. Patient was stable, no fever. Renal function did improve some. Patient stable for discharge Instructed pt and his community service officer to: F/U Dr. Hobbs next week Diet-heart healthy Activity-as tolerated Pt Condition on Discharge: Stable Discharge Disposition: Disch w/ Home Health Serv Discharge Instructions DIET: Follow Instructions for: Heart Healthy Diet Activities you can perform: Weight Bearing as [place]id[place] Follow up Referrals: PCP Follow-up Podiatry - 3-5 Days with Ovidio Lai DPM New Medications: Levofloxacin (Levaquin) 250 Mg Tab 250 MG PO DAILY Infection #90 Ref 0 TAB Ferrous Sulfate (Ferrous Sulfate) 325 Mg Tab 325 MG PO DAILY anemia #30 Ref 1 TAB Gabapentin (Neurontin) 300 Mg Cap 300 MG PO BID Pain Management #60 Ref 0 CAP Metronidazole (Flagyl) 500 Mg Tab 500 MG PO Q8HR Infection #42 Ref 0 TAB Continued Medications: Atorvastatin (Atorvastatin) 40 Mg Tab 40 MG PO HS Cholesterol Management #30 Ref 0 TAB Metoprolol Succinate ER 24 HR (Metoprolol Succinate ER 24 HR) 25 Mg Tab 25 MG PO DAILY #30 Ref 0 TAB Omeprazole (Omeprazole) 20 Mg Tab 20 MG PO DAILY #30 Ref 0 TAB Paliperidone Palmitate Inj (Invega Sustenna Inj) 234 Mg/1.5 Ml Inj 234 MG IM Q28D Schizophrenia #1 Ref 0 VIAL Trihexyphenidyl (Trihexyphenidyl) 2 Mg Tab 2 MG PO DAILY Parkinson Disease Mgmt #30 Ref 0 TAB Warfarin (Warfarin) 6 Mg Tab 6 MG PO DAILY Blood Clot Prevention #30 Ref 0 TAB Ziprasidone (Ziprasidone) 80 Mg Cap 80 MG PO BID #60 Ref 0 CAP Discontinued Medications: Gabapentin (Gabapentin) 300 Mg Cap 300 MG PO QID #60 Ref 0 CAP Melba Tate [facility] February 19, 2017 10:32
[2017-02-19 12:00] VITALS: BP 113/71; PULSE 72; RESP 22; TEMP 98; O2SAT 94
--- NOTE | 2017-02-19 12:07 | HHI.PR ---
Addendum to Inpatient Note Additional Information Dr Calloway input appreciated Doppler studies not sugg of PVD OK to dc home cont Levaquine up to 3 mos per clinical resoluion and normalisation of ESR/CRP Monitor labs while on levaquin : CBC CMP complete [address], MD February 19, 2017 12:07
[2017-02-19] MEDS ORDERED: METR-1 PO (12:47)
[2017-02-19] MEDS ORDERED: LEVA250T PO (12:47)
[2017-02-19] MEDS ORDERED: WARFARIN SOD 6 MG TAB PO ONE (13:15)
[2017-02-19] MEDS: LEVOFLOXACIN 250 MG PREMIX INJ 50 ML IV SCH (13:30)
--- NOTE | 2017-02-19 14:00 | HHI.FF ---
Face to Face Verification Diagnosis: (1) Wound infection (2) Abscess of left great toe (3) Acute kidney injury superimposed on CKD (4) HTN (hypertension) (5) Anemia (6) Schizoaffective disorder Physical Therapy Order: Evaluate and Treat Home Health Nursing Order: Medical education Wound care and dressing changes Nursing assessment with vital signs Instructions: PLEASE HAVE HOME HEALTH CARE DRAW LABS FOR INR MONITORING DO INR TUESDAY, TUE AND TUESDAY X 1 WEEK, KEEP INR BETWEEN 2-3 DO CBC AND BMP EVERY 2 WEEKS FOR 3 MONTHS SEND REPORT TO PCP PT WILL BE ON ORAL ANTIBIOTICS FOR 3 MONTHS Dishwashing Machine Operator Order: To Evaluate: Support services Order: To Provide: Community services I have seen patient Edmundo Benavides on 02/19/17. My clinical findings support the need for the requested home health care services because: Med compliance is questionable Limited ability to care for self Need for psychosocial assistance Impaired cognition/judgement I certify that my clinical findings support that this patient is homebound because: Impaired cognitive ability/safety Unsteady gait/balance Unsafe to leave home unassisted Need for psychosocial assistance Melba Tate TARGET TRIMMER February 19, 2017 14:00
== END 2017-02-19 14:40 | disposition home health service (06) | DRG 580 ==
LOC: NEPD 15:44 → NEDA 18:59 → N04A 21:32
PROVIDERS: ADMIT Specialist; ATTEND Specialist
PROC: 0QBR0ZX Excision of Left Toe Phalanx, Open Approach, Diagnostic (ICD-10-PCS; 2017-02-13)
PROC: 0QBR0ZZ Excision of Left Toe Phalanx, Open Approach (ICD-10-PCS; 2017-02-13)
PROC: 0Y9N0ZZ Drainage of Left Foot, Open Approach (ICD-10-PCS; principal; 2017-02-13 11:28)
DX: L02.612 Cutaneous abscess of left foot (principal); E87.0 Hyperosmolality and hypernatremia; N18.4 Chronic kidney disease, stage 4 (severe); N17.9 Acute kidney failure, unspecified; M86.9 Osteomyelitis, unspecified; K74.60 Unspecified cirrhosis of liver; E55.9 Vitamin D deficiency, unspecified; G62.9 Polyneuropathy, unspecified; L97.529 Non-pressure chronic ulcer of other part of left foot with unspecified severity; I73.9 Peripheral vascular disease, unspecified; Z86.718 Personal history of other venous thrombosis and embolism; Z79.01 Long term (current) use of anticoagulants; J44.9 Chronic obstructive pulmonary disease, unspecified; D63.8 Anemia in other chronic diseases classified elsewhere; E78.5 Hyperlipidemia, unspecified; I12.9 Hypertensive chronic kidney disease with stage 1 through stage 4 chronic kidney disease, or unspecified chronic kidney disease; J45.909 Unspecified asthma, uncomplicated; K21.9 Gastro-esophageal reflux disease without esophagitis; L03.032 Cellulitis of left toe; N28.1 Cyst of kidney, acquired; F25.0 Schizoaffective disorder, bipolar type; F41.9 Anxiety disorder, unspecified; F17.210 Nicotine dependence, cigarettes, uncomplicated
CPT/HCPCS: 10061; 73620; 73718; 76775; 76937; 80048; 80053; 80069; 81001; 82306; 82570; 82728; 83540; 83883; 83970; 84156; 84157; 84165; 85025; 85027; 85610; 86140; 86335; 86803; 87015; 87070; 87102; 87116; 87185; 87186; 87205; 87206; 87340; 88305; 88307; 88311; 93005; 93880; 93922; J1644; J1956; J2250; J2405; J3010; J7030; L3260

== ENCOUNTER 2017-03-10 17:06 | Emergency (ER) | payer MEDICARE, MEDICAID ==
[~2017-03-10] VITALS: Ht 193 cm; Wt 115.9 kg
[~2017-03-10 17:06] MED LIST changes: +ATOR40TA16 PO; +FERR325T PO; -GEOD80CA PO; +LEVA250T PO; +METO25TA6 PO; +METR-1 PO; -POLY255S; +ZIPR1CAP12 PO
[2017-03-10 17:09] VITALS: BP 156/84; PULSE 78; RESP 20; TEMP 98.2; O2SAT 100
[2017-03-10 17:12] VITALS: BP 156/84; PULSE 74; RESP 20; O2SAT 98
[2017-03-10] MEDS ORDERED: SODIUM CHLORIDE 0.9% FLUSH 10 ML FLUSH IVF PRN (17:15)
--- NOTE | 2017-03-10 17:17 | PD ---
HPI Chief Complaint: Abnormal Results Time Seen by Provider: 17:11 Travel History International Travel<30 days: No Contact w/Intl Traveler<30days: No Traveled to known affect area: No History of Present Illness HPI WAS CALLED BY PCP FOR ABNL LABS, POSSIBLY ELEVATED INR? EMS UNSURE SINCE THEY WERE NOT MADE AWARE, EMS PICKED UP FROM HOME...PATIENT HAS NO ACTIVE COMPLAINTS PFSH Past Medical History Arthritis: Yes Asthma: Yes Autoimmune Disease: No Blood Disorders: No Bipolar Disorder: Yes Anxiety: Yes Depression: Yes Heart Rhythm Problems: No Cancer: No Cardiovascular Problems: Yes High Cholesterol: Yes Chemotherapy: No Chest Pain: No Congestive Heart Failure: No Cirrhosis: No COPD: Yes Cerebrovascular Accident: No Diabetes: No Diminished Hearing: No Deep Vein Thrombosis: Yes Endocrine: Yes Gastrointestinal Disorders: No GERD: Yes Glaucoma: No Genitourinary: Yes Headaches: No Hepatitis: No Hiatal Hernia: Yes Hypertension: Yes Immune Disorder: No Implanted Vascular Access Dvce: No Kidney Stones: Yes Musculoskeletal: Yes Neurologic: Yes Psychiatric: Yes (schizophrenic, bi-polar, maniac depressive, anxiety) Reproductive: No Respiratory: Yes Immunizations Current: Yes Migraines: No Myocardial Infarction: No Radiation Therapy: No Renal Failure: Yes Schizophrenia: Yes Seizures: Yes Sickle Cell Disease: No Sleep Apnea: No Thyroid Disease: No Ulcer: No PNEUMOCCOCAL Vaccine (Year): 2 Past Surgical History Abdominal Surgery: No AICD: No Appendectomy: No Arteriovenous Shunt: No Cardiac Surgery: No Cholecystectomy: No Ear Surgery: No Endocrine Surgery: No 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 ) Gynecologic Surgery: No Insulin Pump: No Joint Replacement: No Neurologic Surgery: No Oral Surgery: Yes Pacemaker: No Thoracic Surgery: No Other Surgery: Yes ("JUST MY EYES, I WAS CROSS-EYED WHEN I WAS BORN") Social History Alcohol Use: No Tobacco Use: Yes Substance Use: Yes (marijuana years ago) Allergies-Medications (Allergen,Severity, Reaction): Coded Allergies: Haldol (Verified Allergy, Severe, TONGUE SWELLS, 03/10/17) [place] (Verified Allergy, Severe, OVER DOSED ON IT, 03/10/17) Penicillin (Verified Allergy, Severe, RASH, 03/10/17) Seroquel (Verified Allergy, Severe, HIVES, 03/10/17) Thorazine (Verified Allergy, Severe, SOB, 03/10/17) 10/26/04: PER PT, HE HAS BEEN TAKING STELAZINE SINCE 13 YEARS OLD --- ALTHOUGH HIS RECORD INDICATES AN ALLERGY TO THORAZINE. 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 Reported Meds & Prescriptions Reported Meds & Active Scripts Active Neurontin (Gabapentin) 300 Mg Cap 300 Mg PO BID Reported Invega Sustenna Inj (Paliperidone Palmitate) 234 Mg/1.5 Ml Inj 234 Mg IM Q28D Trihexyphenidyl (Trihexyphenidyl HCl) 2 Mg Tab 2 Mg PO DAILY Omeprazole 20 Mg Tab 20 Mg PO DAILY Ziprasidone 80 Mg Cap 80 Mg PO BID Warfarin 6 Mg Tab 6 Mg PO DAILY Atorvastatin (Atorvastatin Calcium) 40 Mg Tab 40 Mg PO HS Metoprolol Succinate ER 24 HR (Metoprolol Succinate) 25 Mg Tab 25 Mg PO DAILY Review of Systems Except as stated in HPI: all other systems reviewed are Neg Physical Exam Narrative GENERAL: SKIN: Warm and dry. HEAD: Atraumatic. Normocephalic. EYES: Pupils equal and round. No scleral icterus. No injection or drainage. ENT: No nasal bleeding or discharge. Mucous membranes pink and moist. NECK: Trachea midline. No JVD. CARDIOVASCULAR: Regular rate and rhythm. RESPIRATORY: No accessory muscle use. Clear to auscultation. Breath sounds equal bilaterally. GASTROINTESTINAL: Abdomen soft, non-tender, nondistended. Hepatic and splenic margins not palpable. MUSCULOSKELETAL: Extremities without clubbing, cyanosis, 3+ edema BLE. No obvious deformities. PT HAS A POST OP SHOE ON LEFT FOOT NEUROLOGICAL: Awake and alert. No obvious cranial nerve deficits. Motor grossly within normal limits. Five out of 5 muscle strength in the arms and legs. Normal speech. PSYCHIATRIC: Appropriate mood and affect; insight and judgment normal. Data Data Last Documented VS Vital Signs Date Time Temp Pulse Resp B/P Pulse Ox O2 Delivery O2 Flow Rate FiO2 03/10/17 17:18 97 Room Air 03/10/17 17:18 75 20 156/84 03/10/17 17:09 98.2 Orders Electrocardiogram (03/10/17 17:12) B-Type Natriuretic Peptide (03/10/17 17:12) Ckmb (Isoenzyme) Profile (03/10/17 17:12) Complete Blood Count With Diff (03/10/17 17:12) Comprehensive Metabolic Panel (03/10/17 17:12) Magnesium (Mg) (03/10/17 17:12) Prothrombin Time / Inr (Pt) (03/10/17 17:12) Act Partial Throm Time (Ptt) (03/10/17 17:12) Troponin I (03/10/17 17:12) Chest, Single Ap (03/10/17 17:12) Ecg Monitoring (03/10/17 17:12) Bilateral Bp Monitoring (03/10/17 17:12) Iv Access Insert/Monitor (03/10/17 17:12) Oximetry (03/10/17 17:12) Oxygen Administration (03/10/17 17:12) Sodium Chloride 0.9% Flush (Ns Flush) (03/10/17 17:15) ^ Lab Follow Up (03/10/17 18:03) Prothrombin Complex Conc Inj (Kcentra In (03/10/17 18:45) Labs Laboratory Tests Test 03/10/17 17:24 White Blood Count 13.6 TH/MM3 Red Blood Count 4.23 MIL/MM3 Hemoglobin 11.1 GM/DL Hematocrit 34.1 % Mean Corpuscular Volume 80.6 FL Mean Corpuscular Hemoglobin 26.3 PG Mean Corpuscular Hemoglobin 32.6 % Concent Red Cell Distribution Width 20.1 % Platelet Count 266 TH/MM3 Mean Platelet Volume 9.1 FL Neutrophils (%) (Auto) 76.9 % Lymphocytes (%) (Auto) 11.7 % Monocytes (%) (Auto) 9.2 % Eosinophils (%) (Auto) 1.7 % Basophils (%) (Auto) 0.5 % Neutrophils # (Auto) 10.5 TH/MM3 Lymphocytes # (Auto) 1.6 TH/MM3 Monocytes # (Auto) 1.3 TH/MM3 Eosinophils # (Auto) 0.2 TH/MM3 Basophils # (Auto) 0.1 TH/MM3 CBC Comment DIFF FINAL Differential Comment Prothrombin Time 72.7 SEC Prothromb Time International 6.1 RATIO Ratio Activated Partial 72.5 SEC Thromboplast Time Sodium Level 138 MEQ/L Potassium Level 3.9 MEQ/L Chloride Level 105 MEQ/L Carbon Dioxide Level 25.0 MEQ/L Anion Gap 8 MEQ/L Blood Urea Nitrogen 18 MG/DL Creatinine 2.59 MG/DL Estimat Glomerular Filtration 26 ML/MIN Rate Random Glucose 97 MG/DL Calcium Level 8.9 MG/DL Magnesium Level 2.4 MG/DL Total Bilirubin 0.2 MG/DL Aspartate Amino Transf 11 U/L (AST/SGOT) Alanine Aminotransferase 13 U/L (ALT/SGPT) Alkaline Phosphatase 87 U/L Total Creatine Kinase 52 U/L Troponin I LESS THAN 0.02 NG/ML B-Type Natriuretic Peptide 25 PG/ML Total Protein 7.0 GM/DL Albumin 3.0 GM/DL MDM Medical Decision Making Medical Screen Exam Complete: Yes Emergency Medical Condition: Yes Medical Record Reviewed: Yes Interpretation(s) NSR 71, LAFB, NO STEMI PATTERN, JOAQUIM PATTERN NOTED Differential Diagnosis ABNL LABS? WILL CALL PCP TO ASSESS Narrative Course SEE ABOVE, NO ACTIVE BLEEDING, WILL GIVE KCENTRA, ADVISED PATIENT TO HOLD COUMADIN WELL. Diagnosis Primary Impression: HYPERCOAGULOPATHY DUE TO COUMADIN EXCESS Additional Instructions: HOLD YOUR COUMADIN FOR 2 DAYS MAY START TAKING NORMAL DOSE AFTERWARDS Disposition: 01 DISCHARGE HOME Condition: Stable Philip Land MD Mar 10, 2017 17:17
[2017-03-10 17:18] VITALS: BP 156/84; PULSE 75; RESP 20; O2SAT 97
[2017-03-10 17:35] LABS: AUTOMATED NEUTROPHIL # 10.5 TH/MM3 (1.8-7.7); BASOPHIL # 0.1 TH/MM3 (0-0.2); BASOPHIL % 0.5 % (0.0-2.0); EOSINOPHIL # 0.2 TH/MM3 (0-0.4); EOSINOPHIL % 1.7 % (0.0-4.0); HEMATOCRIT 34.1 % (39.0-51.0); HEMO FLAGS DIFF FINAL; LYMPH % 11.7 % (9.0-44.0); LYMPHOCYTE # 1.6 TH/MM3 (1.0-4.8); MEAN CELL VOLUME 80.6 FL (80.0-100.0); MEAN CORPUSCULAR HEMOGLOBIN 26.3 PG (27.0-34.0); MEAN CORPUSCULAR HGB CONC 32.6 % (32.0-36.0); MONO % 9.2 % (0.0-8.0); NEUT % 76.9 % (16.0-70.0); PLATELET COUNT 266 TH/MM3 (150-450); RED BLOOD COUNT 4.23 MIL/MM3 (4.50-5.90); RED CELL DISTRIBUTION WIDTH 20.1 % (11.6-17.2); WHITE BLOOD COUNT 13.6 TH/MM3 (4.0-11.0)
--- NOTE | 2017-03-10 17:47 | RADRPT ---
EXAM DATE/TIME: 03/10/2017 17:41 [facility] COMPARISON: FOOT LEFT LIMITED (2VWS), February 11, 2017, 17:29. INDICATIONS : Chest pain. MEDICAL HISTORY : None. SURGICAL HISTORY : None. ENCOUNTER: Initial ACUITY: 1 day PAIN SCORE: 0/10 LOCATION: Bilateral chest FINDINGS: A single view of the chest demonstrates the lungs to be symmetrically aerated without evidence of mas s, infiltrate or effusion. The cardiomediastinal contours are unremarkable. Osseous structures are intact. CONCLUSION: 1. No acute cardiopulmonary findings Iban Catherine MD on March 10, 2017 at 17:44 Board Certified Radiologist. This report was verified electronically.
[2017-03-10 17:54] LABS: APTT (PATIENT) 72.5 SEC (24.3-30.1); PROTHROMBIN TIME - PATIENT 72.7 SEC (9.8-11.6)
[2017-03-10 17:57] LABS: INTERNATIONAL NORMALIZED RATIO 6.1 RATIO
[2017-03-10 18:01] LABS: ALT (GPT) 13 U/L (12-78); ANION GAP 8 MEQ/L (5-15); AST (GOT) 11 U/L (15-37); BLOOD UREA NITROGEN 18 MG/DL (7-18); CHLORIDE 105 MEQ/L (98-107); GLOMERULAR FILTRATION RATE 26 ML/MIN (>89); MAGNESIUM 2.4 MG/DL (1.5-2.5); POTASSIUM 3.9 MEQ/L (3.5-5.1); SODIUM (NA) 138 MEQ/L (136-145)
[2017-03-10 18:05] LABS: ALKALINE PHOSPHATASE 87 U/L (45-117); TOTAL BILIRUBIN ADULT 0.2 MG/DL (0.2-1.0)
[2017-03-10 18:13] LABS: CREATINE KINASE 52 U/L (39-308)
[2017-03-10] MEDS ORDERED: PROTHROMBIN COMPLEX CONC INJ 5,000 UNITS in SYRINGE/BAG 1 EA IV ONE (18:45)
[2017-03-10 19:37] VITALS: BP 168/82; PULSE 86; RESP 18; O2SAT 97
[2017-03-10 20:07] LABS: INTERNATIONAL NORMALIZED RATIO 1.2 RATIO; PROTHROMBIN TIME - PATIENT 12.8 SEC (9.8-11.6)
--- NOTE | 2017-03-11 17:49 | EKG ---
Date Performed: 03/10/2017 Time Performed: 17:10:25 PTAGE: 57 years EKG: Sinus rhythm LEFT ANTERIOR FASCICULAR BLOCK SEPTAL MYOCARDIAL INFARCTION ABNORMAL ECG PREVIOUS TRACING : 02/13/2017 07.38 Compared to prior tracing no significant change DOCTOR: Sacha Goff Interpretating Date/Time 03/11/2017 17:47:21
== END 2017-03-10 19:57 | disposition home or self-care (01) ==
LOC: NEPC 17:06
DX: R79.1 Abnormal coagulation profile (principal); T45.515A Adverse effect of anticoagulants, initial encounter; I44.4 Left anterior fascicular block; I10 Essential (primary) hypertension; R94.31 Abnormal electrocardiogram [ECG] [EKG]; Z72.0 Tobacco use
CPT/HCPCS: 71010; 80053; 82550; 83735; 83880; 84484; 85025; 85610; 85730; 93005; 96374; 99285; C9132

== ENCOUNTER 2017-03-16 13:16 | Inpatient (IN) | payer MEDICARE, MEDICAID ==
[~2017-03-16] VITALS: Ht 193 cm; Wt 104.4 kg
[~2017-03-16 13:16] MED LIST changes: -FERR325T PO; -LEVA250T PO; -METR-1 PO
[2017-03-16 13:23] VITALS: BP 114/69; PULSE 78; RESP 20; TEMP 98.3; O2SAT 100
--- NOTE | 2017-03-16 13:31 | PD ---
Physical Exam Time Seen by Provider: 13:27 Narrative 57 year old male with C/O of bilateral leg/foot swelling & redness x 1 week. Pain is constant, non radiating, severity 5/10. He denies fever or chills. He reports pain & selling started after stopping the antibiotics for left toe abscess. Patient seen at triage desk. VS reviewed. Patient waiting bed placement. Data Data Last Documented VS Vital Signs Date Time Temp Pulse Resp B/P Pulse Ox O2 Delivery O2 Flow Rate FiO2 03/16/17 13:23 98.3 78 20 114/69 100 Room Air MDM Supervised Visit with HALEY: Renetta Lozada Mar 16, 2017 13:30
[2017-03-16] MEDS ORDERED: SODIUM CHLORIDE 0.9% FLUSH 10 ML FLUSH IVF PRN (14:15)
--- NOTE | 2017-03-16 14:23 | PD ---
HPI Chief Complaint: Skin Problem Time Seen by Provider: 14:06 Travel History International Travel<30 days: No Contact w/Intl Traveler<30days: No Traveled to known affect area: No History of Present Illness HPI Patient 57-year-old male who was admitted last month for osteomyelitis and an ulcerative lesion to his left great toe presents emergency Department with worsening swelling and redness over the past week which is gradually worsening to his bilateral lower extremity's. Patient states he called podiatrists office and they recommended he come in emergency department and be seen. 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 He also has history of blood clots to lower extremities. Denies any shortness of breath.Denies any fever denies abdominal pain nausea or vomiting. PFSH Past Medical History Hx Anticoagulant Therapy: Yes (coumadin) Arthritis: Yes Asthma: Yes Autoimmune Disease: No Blood Disorders: No Bipolar Disorder: Yes Anxiety: Yes Depression: Yes Heart Rhythm Problems: No Cancer: No Cardiovascular Problems: Yes High Cholesterol: Yes Chemotherapy: No Chest Pain: No Congestive Heart Failure: No Cirrhosis: No COPD: Yes Cerebrovascular Accident: No Diabetes: No Diminished Hearing: No Deep Vein Thrombosis: Yes Endocrine: Yes Gastrointestinal Disorders: No GERD: Yes Glaucoma: No Genitourinary: Yes Headaches: No Hepatitis: No Hiatal Hernia: Yes Hypertension: Yes Immune Disorder: No Implanted Vascular Access Dvce: No Kidney Stones: Yes Musculoskeletal: Yes Neurologic: Yes Psychiatric: Yes (schizophrenic, bi-polar, maniac depressive, anxiety) Reproductive: No Respiratory: Yes Immunizations Current: Yes Migraines: No Myocardial Infarction: No Radiation Therapy: No Renal Failure: Yes Schizophrenia: Yes Seizures: Yes Sickle Cell Disease: No Sleep Apnea: No Thyroid Disease: No Ulcer: No PNEUMOCCOCAL Vaccine (Year): 2 Past Surgical History Abdominal Surgery: No AICD: No Appendectomy: No Arteriovenous Shunt: No Cardiac Surgery: No Cholecystectomy: No Ear Surgery: No Endocrine Surgery: No 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 ) Gynecologic Surgery: No Insulin Pump: No Joint Replacement: No Neurologic Surgery: No Oral Surgery: Yes Pacemaker: No Thoracic Surgery: No Other Surgery: Yes ("JUST MY EYES, I WAS CROSS-EYED WHEN I WAS BORN") Social History Alcohol Use: No Tobacco Use: Yes Substance Use: No Allergies-Medications (Allergen,Severity, Reaction): Coded Allergies: Haldol (Verified Allergy, Severe, TONGUE SWELLS, 03/16/17) [place] (Verified Allergy, Severe, OVER DOSED ON IT, 03/16/17) Penicillin (Verified Allergy, Severe, RASH, 03/16/17) Seroquel (Verified Allergy, Severe, HIVES, 03/16/17) Thorazine (Verified Allergy, Severe, SOB, 03/16/17) 10/26/04: PER PT, HE HAS BEEN TAKING STELAZINE SINCE 13 YEARS OLD --- ALTHOUGH HIS RECORD INDICATES AN ALLERGY TO THORAZINE. 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 Reported Meds & Prescriptions Reported Meds & Active Scripts Active Neurontin (Gabapentin) 300 Mg Cap 300 Mg PO BID Reported Invega Sustenna Inj (Paliperidone Palmitate) 234 Mg/1.5 Ml Inj 234 Mg IM Q28D Trihexyphenidyl (Trihexyphenidyl HCl) 2 Mg Tab 2 Mg PO DAILY Omeprazole 20 Mg Tab 20 Mg PO DAILY Ziprasidone 80 Mg Cap 80 Mg PO BID Warfarin 6 Mg Tab 6 Mg PO DAILY Atorvastatin (Atorvastatin Calcium) 40 Mg Tab 40 Mg PO HS Metoprolol Succinate ER 24 HR (Metoprolol Succinate) 25 Mg Tab 25 Mg PO DAILY Review of Systems Except as stated in HPI: all other systems reviewed are Neg Physical Exam Narrative GENERAL: Developed, unkempt well-nourished patient in no apparent distress. SKIN: Bilateral extremities are red and warm distal to the tibial tuberosity. Scaly skin override's, significantly edematous bilateral lower extremities. There is an ulcerative lesion to the left great toe which appears to be somewhat deep. Nontender. HEAD: Atraumatic. Normocephalic. EYES: Pupils equal and round. No scleral icterus. No injection or drainage. ENT: No nasal bleeding or discharge. Mucous membranes pink and moist. NECK: Trachea midline. No JVD. CARDIOVASCULAR: Regular rate and rhythm. No murmur appreciated. RESPIRATORY: No accessory muscle use. Clear to auscultation. Breath sounds equal bilaterally. GASTROINTESTINAL: Abdomen soft, non-tender, nondistended. Hepatic and splenic margins not palpable. MUSCULOSKELETAL: No obvious deformities. No clubbing. No cyanosis. Edema as above. NEUROLOGICAL: Awake and alert. No obvious cranial nerve deficits. Motor grossly within normal limits. Normal speech. PSYCHIATRIC: Appropriate mood and affect; insight and judgment normal. Data Data Last Documented VS Vital Signs Date Time Temp Pulse Resp B/P Pulse Ox O2 Delivery O2 Flow Rate FiO2 03/16/17 16:58 70 16 116/75 98 Room Air 03/16/17 13:23 98.3 Orders Complete Blood Count With Diff (03/16/17 14:11) Comprehensive Metabolic Panel (03/16/17 14:11) [place] Sedimentation Rate (03/16/17 14:11) C-Reactive Protein (Crp) (03/16/17 14:11) Ecg Monitoring (03/16/17 14:11) Iv Access Insert/Monitor (03/16/17 14:11) Oximetry (03/16/17 14:11) Sodium Chloride 0.9% Flush (Ns Flush) (03/16/17 14:15) Us Leg Venous Doppler Bilat (03/16/17 14:11) Blood Culture (03/16/17 16:18) Vancomycin Inj (Vancomycin Inj) (03/16/17 16:30) Piperacil-Tazo 2.25 Gm Premix (Zosyn 2.2 (03/16/17 16:30) Diet Heart Healthy (03/16/17 Dinner) Vital Signs (Adult) HOMER.Q4H (03/16/17 16:55) Prothrombin Time / Inr (Pt) (03/16/17 16:55) Acetaminophen (Tylenol) (03/16/17 17:00) Consult Podiatry (03/16/17 ) Ondansetron Inj (Zofran Inj) (03/16/17 17:00) Admit Order (Ed Use Only) (03/16/17 ) Consult Podiatry (03/16/17 ) Labs Laboratory Tests Test 03/16/17 14:15 White Blood Count 13.1 TH/MM3 Red Blood Count 4.73 MIL/MM3 Hemoglobin 12.0 GM/DL Hematocrit 38.1 % Mean Corpuscular Volume 80.6 FL Mean Corpuscular Hemoglobin 25.3 PG Mean Corpuscular Hemoglobin 31.4 % Concent Red Cell Distribution Width 20.2 % Platelet Count 206 TH/MM3 Mean Platelet Volume 8.9 FL Neutrophils (%) (Auto) 75.4 % Lymphocytes (%) (Auto) 11.7 % Monocytes (%) (Auto) 8.4 % Eosinophils (%) (Auto) 3.9 % Basophils (%) (Auto) 0.6 % Neutrophils # (Auto) 9.9 TH/MM3 Lymphocytes # (Auto) 1.5 TH/MM3 Monocytes # (Auto) 1.1 TH/MM3 Eosinophils # (Auto) 0.5 TH/MM3 Basophils # (Auto) 0.1 TH/MM3 CBC Comment AUTO DIFF Differential Comment AUTO DIFF CONFIRMED Platelet Estimate NORMAL Platelet Morphology Comment NORMAL Erythrocyte Sedimentation Rate 69 mm/hr Sodium Level 138 MEQ/L Potassium Level 5.1 MEQ/L Chloride Level 106 MEQ/L Carbon Dioxide Level 24.7 MEQ/L Anion Gap 7 MEQ/L Blood Urea Nitrogen 27 MG/DL Creatinine 2.91 MG/DL Estimat Glomerular Filtration 22 ML/MIN Rate Random Glucose 99 MG/DL Calcium Level 9.4 MG/DL Total Bilirubin 0.4 MG/DL Aspartate Amino Transf 32 U/L (AST/SGOT) Alanine Aminotransferase 28 U/L (ALT/SGPT) Alkaline Phosphatase 96 U/L C-Reactive Protein 8.48 MG/DL Total Protein 7.7 GM/DL Albumin 3.2 GM/DL [facility] Medical Decision Making Medical Screen Exam Complete: Yes Emergency Medical Condition: Yes Differential Diagnosis Cellulitis, sepsis, osteomyelitis. Narrative Course Patient 57-year-old male roomed in the emergency Department, white blood cell count elevated, as well as ESR and CRP. Given the appearance of his legs have high index suspicion for cellulitis that is not amenable to outpatient therapy, also high in the differential is recurrent osteomyelitis. The patient was discussed with Dr. Lai who recommends consultation with the on-call physician for their group and a consultation is been placed. Also discussed with Dr. Tijerina for admission and he is agreeable. Vancomycin and Zosyn have been given. Diagnosis Primary Impression: Cellulitis Qualified Code: L03.119 - Cellulitis of lower extremity, unspecified laterality Admitting Information Admitting Physician Requests: Admit Condition: Stable Brandon Braswell MD Mar 16, 2017 14:22
[2017-03-16 14:32] VITALS: RESP 20; O2SAT 96
[2017-03-16 14:33] LABS: AUTOMATED NEUTROPHIL # 9.9 TH/MM3 (1.8-7.7); BASOPHIL # 0.1 TH/MM3 (0-0.2); BASOPHIL % 0.6 % (0.0-2.0); EOSINOPHIL # 0.5 TH/MM3 (0-0.4); EOSINOPHIL % 3.9 % (0.0-4.0); HEMATOCRIT 38.1 % (39.0-51.0); LYMPH % 11.7 % (9.0-44.0); LYMPHOCYTE # 1.5 TH/MM3 (1.0-4.8); MEAN CELL VOLUME 80.6 FL (80.0-100.0); MEAN CORPUSCULAR HEMOGLOBIN 25.3 PG (27.0-34.0); MEAN CORPUSCULAR HGB CONC 31.4 % (32.0-36.0); MONO % 8.4 % (0.0-8.0); NEUT % 75.4 % (16.0-70.0); PLATELET COUNT 206 TH/MM3 (150-450); RED BLOOD COUNT 4.73 MIL/MM3 (4.50-5.90); RED CELL DISTRIBUTION WIDTH 20.2 % (11.6-17.2); WHITE BLOOD COUNT 13.1 TH/MM3 (4.0-11.0)
[2017-03-16 14:42] LABS: HEMO FLAGS AUTO DIFF
[2017-03-16 14:49] LABS: ANION GAP 7 MEQ/L (5-15); AST (GOT) 32 U/L (15-37); BICARBONATE 24.7 MEQ/L (21.0-32.0); BLOOD UREA NITROGEN 27 MG/DL (7-18); CHLORIDE 106 MEQ/L (98-107); GLOMERULAR FILTRATION RATE 22 ML/MIN (>89); POTASSIUM 5.1 MEQ/L (3.5-5.1); SODIUM (NA) 138 MEQ/L (136-145)
[2017-03-16 14:58] LABS: ALKALINE PHOSPHATASE 96 U/L (45-117); ALT (GPT) 28 U/L (12-78); TOTAL BILIRUBIN ADULT 0.4 MG/DL (0.2-1.0)
--- NOTE | 2017-03-16 15:40 | RADRPT ---
EXAM DATE/TIME: 03/16/2017 15:02 [facility] COMPARISON: US LEG BILATERAL VENOUS DOPPLER, June 12, 2012, 20:01. INDICATIONS : Bilateral leg pain and swelling. MEDICAL HISTORY : Hypercholesterolemia. Chronic obstructive pulmonary disease. Methicillin-resist ant Staphylococcus aureus. GERD. Seizures. Head trauma. Hypertension. Hyperlipidemia. DVT. Renal fail ure. Kidney stones. Schizophrenia. SURGICAL HISTORY : Cholecystectomy. ENCOUNTER: Subsequent ACUITY: 1 week PAIN SCORE: 4/10 LOCATION: Bilateral legs. TECHNIQUE: Venous ultrasound of the left and right leg was performed from the inguinal ligament t o the proximal calf. Real-time, color Doppler and spectral tracing, compression and augmentation isidro hniques were used. FINDINGS: RIGHT LEG: There is normal compressibility of the deep venous system from the inguinal region to the proximal calf. No echogenic clot is seen in the lumen of the common femoral, femoral, popliteal, and posterior tibial veins. There is a normal response of the venous system to proximal and distal augmentation and respiration. LEFT LEG: There is normal compressibility of the deep venous system from the inguinal region to t he proximal calf. No echogenic clot is seen in the lumen of the common femoral, femoral, popliteal, and posterior tibial veins. There is a normal response of the venous system to proximal and distal a ugmentation and respiration. CONCLUSION: No evidence of deep venous thrombosis within the lower extremities. Brandon Schuler MD on March 16, 2017 at 15:37 Board Certified Radiologist. This report was verified electronically.
[2017-03-16 16:08] LABS: PLATELET ESTIMATE SMEAR NORMAL (NORMAL); PLATELET MORPHOLOGY NORMAL (NORMAL); SCAN/DIFF AUTO DIFF CONFIRMED
[2017-03-16] MEDS ORDERED: VANCOMYCIN INJ 1,000 MG in SODIUM CHLOR 0.9% 250 ML INJ 250 ML IV ONE (16:30)
[2017-03-16] MEDS ORDERED: PIPERACIL-TAZO 2.25 GM PREMIX 50 ML IV ONE (16:30)
[2017-03-16 16:58] VITALS: BP 116/75; PULSE 70; RESP 16; O2SAT 98
[2017-03-16] MEDS ORDERED: ACETAMINOPHEN 325 MG TAB PO PRN ×2 (17:00→17:45)
[2017-03-16] MEDS ORDERED: ONDANSETRON HCL 4 MG/2 ML VIAL IV PUSH PRN (17:00)
[2017-03-16] MEDS ORDERED: BISACODYL 10 MG SUPP RECTAL PRN (17:45)
[2017-03-16] MEDS ORDERED: LACTULOSE SYRUP 20 GM/30 ML CUP PO PRN (17:45)
[2017-03-16] MEDS ORDERED: MAGNESIUM HYDROXIDE SUSP 30 ML CUP PO PRN (17:45)
[2017-03-16] MEDS ORDERED: Vancomycin Consult Pharmacy 1 EA OTHER SCH (17:45)
[2017-03-16] MEDS ORDERED: SODIUM CHLORIDE 0.9% FLUSH 10 ML FLUSH IV FLUSH PRN (17:45)
[2017-03-16] MEDS ORDERED: SENNOSIDES 8.6 MG TAB PO PRN (17:45)
[2017-03-16] MEDS ORDERED: NALOXONE HCL 0.4 MG/ML AMP IV PRN (17:45)
[2017-03-16] MEDS ORDERED: ONDANSETRON HCL 4 MG/2 ML VIAL IVP PRN (17:45)
[2017-03-16 19:30] VITALS: BP 120/78; PULSE 88; RESP 18; O2SAT 98
--- NOTE | 2017-03-16 19:58 | HHI.HP ---
HPI Service [facility] Primary Care Physician Arcenio Ledbetter, DO Admission Diagnosis Cellulitis vs Osteomyelitis. Diagnoses: Chief Complaint: leg swelling and redness Travel History International Travel<30 Days: No Contact w/Intl Traveler <30 Da: No Traveled to Known Affected Are: No History of Present Illness This is a 57-year-old male with history of peripheral vascular disease, peripheral neuropathy, history of DVT on Coumadin, schizoaffective disorder, chronic kidney disease, COPD, tobacco abuse. Patient recently admitted February 11 until February 19, 2017 for left great toe ulceration that require I&D and IV antibiotics. Biopsy was positive for osteomyelitis. He was actually offered amputation versus antibiotics and he opted for medical treatment. He was discharged on oral antibiotics and instructions to follow-up with podiatry. Patient presents back to the emergency room complaining of bilateral leg and feet swelling and redness for the last 2 days, indicates his legs are sore. Skin is noted erythematous, very dry and scaly. Toenails are long and thickened. Patient indicates he is having a hard time cleaning his legs and is not able to wear shoes. He either doesn't wear shoes or uses flip-flops. He states that he finished the antibiotics that he has not been able to follow-up with podiatry. He denies any fever, no chills. No chest pain, no shortness of breath. He is complaining of burning when he voids. He has a history of chronic kidney disease however he has not follow-up with nephrology. He voids adequate amounts. Patient was evaluated in emergency room, laboratory was completed. See remarkable for leukocytosis, WBC 13.1. Sedimentation rate 69. C-reactive protein 8.48. BMP remarkable for BUN of 27, creatinine 2.91. Ultrasound of the legs was negative for DVT. Cultures were obtained, he was started on empiric antibiotics. Left great toe ulceration is noted, appears to be healing. There is an opening from the recent I&D but otherwise there is no exudate, no odor. Patient is admitted for further evaluation and treatment. Review of Systems ROS Limitations: Poor Historian Integumentary: COMPLAINS OF: Abnormal pigmentation, Rash (leg swelling and redness ) Past Family Social History Past Medical History Tobacco abuse. Bipolar disease Difficulty chewing, Seizures. Head trauma. Peripheral arterial disease Hyperlipidemia Hypertension DVT on Coumadin. COPD Hiatal hernia. Reflux disease. Chronic kidney disease. Kidney stones. Schizophrenia. Depression Anxiety Suicide attempt. Violent behavior/verbal agitation post. tendon dysfunction Past Surgical History Kidney surgery for stones. eye surgery As a child lap patricia 06/2014 S/P I/D 02/13 left great toe wound Reported Medications Reported Meds & Active Scripts Active Neurontin (Gabapentin) 300 Mg Cap 300 Mg PO BID Reported Invega Sustenna Inj (Paliperidone Palmitate) 234 Mg/1.5 Ml Inj 234 Mg IM Q28D Trihexyphenidyl (Trihexyphenidyl HCl) 2 Mg Tab 2 Mg PO DAILY Omeprazole 20 Mg Tab 20 Mg PO DAILY Ziprasidone 80 Mg Cap 80 Mg PO BID Warfarin 6 Mg Tab 6 Mg PO DAILY Atorvastatin (Atorvastatin Calcium) 40 Mg Tab 40 Mg PO HS Metoprolol Succinate ER 24 HR (Metoprolol Succinate) 25 Mg Tab 25 Mg PO DAILY Allergies: Coded Allergies: Haldol (Verified Allergy, Severe, TONGUE SWELLS, 03/16/17) Shields (Verified Allergy, Severe, OVER DOSED ON IT, 03/16/17) Penicillin (Verified Allergy, Severe, RASH, 03/16/17) Seroquel (Verified Allergy, Severe, HIVES, 03/16/17) Thorazine (Verified Allergy, Severe, SOB, 03/16/17) 10/26/04: PER PT, HE HAS BEEN TAKING STELAZINE SINCE 13 YEARS OLD --- ALTHOUGH HIS RECORD INDICATES AN ALLERGY TO THORAZINE. 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 Ordered Medications Inpatient Medications Acetaminophen (Tylenol) 650 mg Q4H PRN PO TEMP > 100.4; Start 03/16/17 at 17:45 Atorvastatin Calcium (Lipitor) 40 mg HS PO ; Start 03/16/17 at 21:00 Bisacodyl (Dulcolax Supp) 10 mg DAILY PRN RECTAL SEVERE CONSITIPATION; Start at 17:45 Gabapentin (Neurontin) 300 mg BID PO ; Start 03/16/17 at 21:00 Lactulose 30 ml 30 ml DAILY PRN PO SEVERE CONSITIPATION; Start 03/16/17 at 17: 45 Magnesium Hydroxide (Milk Of Magnesia Liq) 30 ml Q12H PRN PO MILD - MODERATE CONSTIPATION; Start 03/16/17 at 17:45 Metoprolol Succinate (Toprol Xl) 25 mg DAILY PO ; Start 03/17/17 at 09:00 Naloxone HCl (Narcan Inj) 0.4 mg UNSCH PRN IV SEE LABEL COMMENTS; Start at 17:45 Ondansetron HCl (Zofran Inj) 4 mg Q6H PRN IVP NAUSEA OR VOMITING; Start at 17:45 Pantoprazole Sodium 20 mg 20 mg DAILY@06 PO ; Start 03/17/17 at 06:00 Patient Medication Teaching (Coumadin Booklet) 1 ONCE ONCE .XX ; Start at 16:00; Stop 03/17/17 at 16:01 Pharmacy Profile Note 0 ml @ 0 mls/hr UNSCH OTHER ; Start 03/16/17 at 17:45 Piperacillin Sod/ Tazobactam Sod (Zosyn 2.25 Gm Premix) 50 ml @ 100 mls/hr Q8H IV ; Start 03/17/17 at 02:00 Senna/Docusate Sodium (Josefina-Colace) 1 tab BID PO ; Start 03/16/17 at 21:00 Sennosides (Senokot) 17.2 mg Q12H PRN PO MODERATE - SEVERE CONSTIPATION; Start 03/16/17 at 17:45 Sodium Chloride (NS Flush) 2 ml BID IV FLUSH ; Start 03/16/17 at 21:00 Trihexyphenidyl HCl (Artane) 2 mg DAILY PO ; Start 03/17/17 at 09:00 Vancomycin HCl/ Sodium Chloride (Vancomycin Inj/ NS 250 ml Inj) 250 ml @ 250 mls/hr ONCE ONCE IV ; Start 03/16/17 at 20:00; Stop 03/16/17 at 20:59 Warfarin Sodium (Coumadin) 6 mg DAILY PO ; Start 03/17/17 at 09:00; Status UNV Ziprasidone (Geodon) 80 mg BIDPC PO ; Start 03/16/17 at 21:00 Family History mother is alive and well doesn't know about medical hx Social History lives alone, no family close by. Has a social media project manager and showcase maker who assist with this medical and mental health needs. Smokes 2 packs of cigarettes a day, no longer drinks alcohol, no reported Illicit drug use sees psychiatrist at [facility] Physical Exam Vital Signs Vital Signs Date Time Temp Pulse Resp B/P Pulse Ox O2 Delivery O2 Flow Rate FiO2 03/16/17 16:58 70 16 116/75 98 Room Air 03/16/17 14:32 20 96 Room Air 03/16/17 14:25 84 18 03/16/17 13:23 98.3 78 20 114/69 100 Room Air Physical Exam GENERAL: This is a well-nourished, well-developed patient, in no apparent distress. SKIN: Skin to legs dry, scaly, toe nails long and thickened. HEAD: Atraumatic. Normocephalic. No temporal or scalp tenderness. EYES: Pupils equal round and reactive. Extraocular motions intact. No scleral icterus. No injection or drainage. ENT: Nose without bleeding, purulent drainage or septal hematoma. Throat without erythema, tonsillar hypertrophy or exudate. Uvula midline. Airway patent. NECK: Trachea midline. No JVD or lymphadenopathy. Supple, nontender, no meningeal signs. CARDIOVASCULAR: Regular rate and rhythm without murmurs, gallops, or rubs. RESPIRATORY: Clear to auscultation. Breath sounds equal bilaterally. No wheezes , rales, or rhonchi. GASTROINTESTINAL: Abdomen soft, non-tender, nondistended. No hepato-splenomegaly , or palpable masses. No guarding. MUSCULOSKELETAL: Extremities without clubbing, cyanosis. No joint tenderness, effusion, or edema noted. No calf tenderness. Negative Homans sign bilaterally. Bilateral lower extremity noted with dry scaly skin, erythematous from mid calf down to feet. There is pitting edema, 2+, faint pedal pulses. There is ulcerated area of the left plantar aspect of the great toe, fibrous tissue, no exudate. No erythema. It is approximately 2 cm width and 1 cm deep. NEUROLOGICAL: Awake, alert oriented 3. No focal deficits. Slow to respond but otherwise appears to be at baseline. Following commands. Able to provide some history. Mild tremors are noted. Laboratory Laboratory Tests Test 03/16/17 14:15 White Blood Count 13.1 Red Blood Count 4.73 Hemoglobin 12.0 Hematocrit 38.1 Mean Corpuscular Volume 80.6 Mean Corpuscular Hemoglobin 25.3 Mean Corpuscular Hemoglobin 31.4 Concent Red Cell Distribution Width 20.2 Platelet Count 206 Mean Platelet Volume 8.9 Neutrophils (%) (Auto) 75.4 Lymphocytes (%) (Auto) 11.7 Monocytes (%) (Auto) 8.4 Eosinophils (%) (Auto) 3.9 Basophils (%) (Auto) 0.6 Neutrophils # (Auto) 9.9 Lymphocytes # (Auto) 1.5 Monocytes # (Auto) 1.1 Eosinophils # (Auto) 0.5 Basophils # (Auto) 0.1 CBC Comment AUTO DIFF Differential Comment AUTO DIFF CONFIRMED Platelet Estimate NORMAL Platelet Morphology Comment NORMAL Erythrocyte Sedimentation Rate 69 Sodium Level 138 Potassium Level 5.1 Chloride Level 106 Carbon Dioxide Level 24.7 Anion Gap 7 Blood Urea Nitrogen 27 Creatinine 2.91 Estimat Glomerular Filtration 22 Rate Random Glucose 99 Calcium Level 9.4 Total Bilirubin 0.4 Aspartate Amino Transf 32 (AST/SGOT) Alanine Aminotransferase 28 (ALT/SGPT) Alkaline Phosphatase 96 C-Reactive Protein 8.48 Total Protein 7.7 Albumin 3.2 Date/Time Procedure Status Source Growth 03/16/17 17:05 Aerobic Blood Culture Received Blood Peripheral Pending 03/16/17 17:05 Anaerobic Blood Culture Received Blood Peripheral Pending Result Diagram: 03/16/17 1415 03/16/17 1415 Imaging Last Impressions Lower Extremity Ultrasound 03/16/17 1411 Signed Impressions: Service Date/Time: Tuesday, March 16, 2017 15:02 - CONCLUSION: No evidence of deep venous thrombosis within the lower extremities. Brandon Schuler MD Assessment and Plan Problem List: (1) Bilateral cellulitis of lower leg (2) Edema (3) Onychomycosis (4) CKD (chronic kidney disease) stage 4, GFR 15-29 ml/min (5) HTN (hypertension) (6) Anemia (7) Acute kidney injury superimposed on CKD (8) Hx of deep venous thrombosis (9) Posterior tibial tendon dysfunction (10) Chronic anticoagulation (11) Peripheral neuropathy (12) Schizoaffective disorder (13) Chronic ulcer of great toe of left foot Assessment and Plan Admit to Dr. Rodriguez 57-year-old male presented to the emergency room with bilateral leg/foot swelling and redness for the last 2 days, no fever, no chills. Patient was recently admitted in January for left great toe ulcer that required I&D, was sent home on oral antibiotics which he has completed. Biopsy was positive for osteomyelitis. He has not been able to follow-up with podiatry. Denies any fever, no chills. Complains of legs being painful. Bilateral lower extremity cellulitis, patient with poor hygiene, unable to clean his feet. Indicates that he has been walking in flip flops and is not able to wear shoes. Poor hygiene. -US of legs Negative for DVT -Continue with antibiotics Follow cultures Recent admission for left great toe ulcer, completed antibiotics, appears to be healing. -Podiatry has been consulted for evaluation. Acute on chronic renal injury, stage IV. Appears pretty close to baseline. -Hydrate cautiously Avoid nephrotoxic agents Follow BMP in the morning -Patient is again encouraged to follow up with nephrology as outpatient. Hypertension, stable Continue with home medication Peripheral neuropathy, on gabapentin Continue gabapentin Schizoaffective disorder, stable, follows up with psychiatrist at [facility] Continue home medication History DVT, on chronic anticoagulation -INR pending -Continue Coumadin if INR between 2 and 3 Home medications reviewed, initiated as indicated Plan of care has been discussed with the patient, attending and registered nurse. Further management of the patient be dependent on the hospital course This patient was seen by myself and Dr. Rodriguez, this H&P is written on his behalf Problem Qualifiers (1) Edema: Qualified Code: R60.9 - Edema, unspecified type (2) HTN (hypertension): Qualified Code: I10 - Essential hypertension (3) Anemia: (4) Peripheral neuropathy: Qualified Code: G62.9 - Peripheral polyneuropathy (5) Schizoaffective disorder: Qualified Code: F25.9 - Schizoaffective disorder, unspecified type Melba Tate [facility] Mar 16, 2017 19:58
[2017-03-16 20:00] VITALS: BP 99/56; PULSE 88; RESP 18; TEMP 98.6; O2SAT 96
[2017-03-16] MEDS ORDERED: VANCOMYCIN 1,000 MG/NS 250 ML IV ONE ×2 (20:00)
[2017-03-16] MEDS ORDERED: SODIUM CHLORID 0.9% 500 ML INJ 500 ML IV SCH (20:00)
[2017-03-16 20:05] LABS: BLOOD, URINE NEG (NEG); GLUCOSE,URINE NEG (NEG); KETONE, URINE NEG (NEG); NITRITE,URINE NEG (NEG); PH, URINE 6.5 (5.0-8.5); SQUAMOUS EPITHELIAL CELL URINE <1 /hpf (0-5); URINE COLOR LIGHT-YELLOW (YELLW/STRAW)
[2017-03-16 20:07] LABS: COMMENT (UR) CULT NOT INDICATED; CULTURE IF INDICATED CULT NOT INDICATED
[2017-03-16] MEDS: SODIUM CHLORIDE 0.9% FLUSH 10 ML FLUSH IV FLUSH SCH (20:37)
[2017-03-16] MEDS: GABAPENTIN 300 MG CAP PO SCH (20:38)
[2017-03-16] MEDS: ATORVASTATIN 40 MG TAB PO SCH (20:38)
[2017-03-16] MEDS: DOCUSATE SODIUM 50 MG/SENNA 8.6 MG TAB PO SCH (20:38)
[2017-03-16] MEDS: ZIPRASIDONE HCL 80 MG CAP PO SCH (21:00)
[2017-03-16 22:32] LABS: INTERNATIONAL NORMALIZED RATIO 2.1 RATIO; PROTHROMBIN TIME - PATIENT 23.5 SEC (9.8-11.6)
[2017-03-17] VITALS: BP 108/65; PULSE 80; RESP 18; TEMP 98.5; O2SAT 95
[2017-03-17] MEDS: PIPERACIL-TAZO 2.25 GM PREMIX 50 ML IV SCH ×2 (02:22→08:41)
[2017-03-17 04:00] VITALS: BP 108/65; PULSE 80; RESP 18; TEMP 98.5; O2SAT 95
[2017-03-17] MEDS: PANTOPRAZOLE SOD 20 MG DELAYED RELEASE TAB PO SCH (06:13)
[2017-03-17 07:15] LABS: AUTOMATED NEUTROPHIL # 8.1 TH/MM3 (1.8-7.7); BASOPHIL # 0.1 TH/MM3 (0-0.2); BASOPHIL % 0.6 % (0.0-2.0); EOSINOPHIL # 0.6 TH/MM3 (0-0.4); HEMATOCRIT 32.6 % (39.0-51.0); HEMO FLAGS DIFF FINAL; LYMPH % 12.4 % (9.0-44.0); LYMPHOCYTE # 1.4 TH/MM3 (1.0-4.8); MEAN CORPUSCULAR HEMOGLOBIN 26.2 PG (27.0-34.0); MEAN CORPUSCULAR HGB CONC 32.7 % (32.0-36.0); MONO % 8.5 % (0.0-8.0); NEUT % 73.5 % (16.0-70.0); PLATELET COUNT 246 TH/MM3 (150-450); RED BLOOD COUNT 4.07 MIL/MM3 (4.50-5.90); RED CELL DISTRIBUTION WIDTH 19.7 % (11.6-17.2); WHITE BLOOD COUNT 11.1 TH/MM3 (4.0-11.0)
[2017-03-17 07:27] LABS: PROTHROMBIN TIME - PATIENT 23.1 SEC (9.8-11.6)
[2017-03-17 07:45] LABS: BICARBONATE 27.5 MEQ/L (21.0-32.0); POTASSIUM 4.7 MEQ/L (3.5-5.1)
[2017-03-17 08:00] VITALS: BP 108/62; PULSE 82; RESP 18; TEMP 97.8; O2SAT 98
[2017-03-17] MEDS: METOPROLOL SUCCINATE 25 MG EXTENDED RELEASE TAB PO SCH (08:41)
[2017-03-17] MEDS: GABAPENTIN 300 MG CAP PO SCH ×2 (08:41→19:46)
[2017-03-17] MEDS: DOCUSATE SODIUM 50 MG/SENNA 8.6 MG TAB PO SCH ×2 (08:41→19:46)
[2017-03-17] MEDS: TRIHEXYPHENIDYL HCL 2 MG TAB PO SCH (08:41)
[2017-03-17] MEDS: ZIPRASIDONE HCL 80 MG CAP PO SCH (09:00)
[2017-03-17] MEDS: SODIUM CHLORIDE 0.9% FLUSH 10 ML FLUSH IV FLUSH SCH ×2 (09:00→19:47)
[2017-03-17] MEDS ORDERED: PNEUMOCOCCAL POLYVALENT INJ 25 MCG/0.5 ML SYR IM ONE (10:00)
[2017-03-17] MEDS ORDERED: INFLUENZA VIRUS VACCINE (QUADRIVALENT) 0.5 ML SYR IM ONE (10:00)
--- NOTE | 2017-03-17 11:05 | HHI.PR ---
Subjective Remarks sitting up, eating legs less tender wants to go home upset over isolation no fever no cp no sob (Melba Tate) Objective Objective Results - Vital Signs Date Time Temp Pulse Resp B/P Pulse Ox O2 Delivery O2 Flow Rate FiO2 03/17/17 08:00 97.8 82 18 108/62 98 03/17/17 04:00 98.5 80 18 108/65 95 03/17/17 00:00 98.5 80 18 108/65 95 03/16/17 20:00 98.6 88 18 99/56 96 03/16/17 19:30 88 18 120/78 98 Room Air 03/16/17 16:58 70 16 116/75 98 Room Air 03/16/17 14:32 20 96 Room Air 03/16/17 14:25 84 18 03/16/17 13:23 98.3 78 20 114/69 100 Room Air I/O 03/16/17 03/16/17 03/16/17 03/17/17 03/17/17 03/17/17 07:00 15:00 23:00 07:00 15:00 23:00 Intake Total 360 ml 508 ml Output Total 0 ml Balance 360 ml 508 ml Intake Oral 360 ml IV Total 508 ml Output Urine Total 0 ml # Bowel Movements 0 (Melba Tate) Result Diagram: 03/17/17 0557 03/17/17 0557 Imaging Last Impressions Lower Extremity Ultrasound 03/16/17 1411 Signed Impressions: Service Date/Time: Thursday, March 16, 2017 15:02 - CONCLUSION: No evidence of deep venous thrombosis within the lower extremities. Brandon Schuler MD Other Results Laboratory Tests Test 03/16/17 03/16/17 03/16/17 03/17/17 14:15 19:41 21:26 05:57 White Blood Count 13.1 11.1 Red Blood Count 4.73 4.07 Hemoglobin 12.0 10.7 Hematocrit 38.1 32.6 Mean Corpuscular Volume 80.6 80.0 Mean Corpuscular Hemoglobin 25.3 26.2 Mean Corpuscular Hemoglobin 31.4 32.7 Concent Red Cell Distribution Width 20.2 19.7 Platelet Count 206 246 Mean Platelet Volume 8.9 9.3 Neutrophils (%) (Auto) 75.4 73.5 Lymphocytes (%) (Auto) 11.7 12.4 Monocytes (%) (Auto) 8.4 8.5 Eosinophils (%) (Auto) 3.9 5.0 Basophils (%) (Auto) 0.6 0.6 Neutrophils # (Auto) 9.9 8.1 Lymphocytes # (Auto) 1.5 1.4 Monocytes # (Auto) 1.1 0.9 Eosinophils # (Auto) 0.5 0.6 Basophils # (Auto) 0.1 0.1 CBC Comment AUTO DIFF DIFF FINAL Differential Comment AUTO DIFF CONFIRMED Platelet Estimate NORMAL Platelet Morphology Comment NORMAL Erythrocyte Sedimentation Rate 69 Sodium Level 138 147 Potassium Level 5.1 4.7 Chloride Level 106 114 Carbon Dioxide Level 24.7 27.5 Anion Gap 7 6 Blood Urea Nitrogen 27 25 Creatinine 2.91 2.73 Estimat Glomerular Filtration 22 24 Rate Random Glucose 99 91 Calcium Level 9.4 9.2 Total Bilirubin 0.4 Aspartate Amino Transf 32 (AST/SGOT) Alanine Aminotransferase 28 (ALT/SGPT) Alkaline Phosphatase 96 C-Reactive Protein 8.48 Total Protein 7.7 Albumin 3.2 Urine Color LIGHT-YELLOW Urine Turbidity CLEAR Urine pH 6.5 Urine Specific Howe 1.004 Urine Protein NEG Urine Glucose (UA) NEG Urine Ketones NEG Urine Occult Blood NEG Urine Nitrite NEG Urine Bilirubin NEG Urine Urobilinogen LESS THAN 2.0 Urine Leukocyte Esterase NEG Urine RBC LESS THAN 1 Urine WBC LESS THAN 1 Urine Squamous Epithelial <1 Cells Microscopic Urinalysis Comment CULT NOT INDICATED Prothrombin Time 23.5 23.1 Prothromb Time International 2.1 2.0 Ratio Date/Time Procedure Status Source Growth 03/16/17 17:05 Aerobic Blood Culture Received Blood Peripheral Pending 03/16/17 17:05 Anaerobic Blood Culture Received Blood Peripheral Pending (Melba Tate) ROS General: Other (12 point ros completed, unreliable ) Cardiac: Edema Pulmonary: Cough (Melba Tate) Physical Exam Physical Exam GENERAL: This is a well-nourished, well-developed patient, in no apparent distress. SKIN: Skin to legs dry, scaly, toe nails long and thickened. HEAD: Atraumatic. Normocephalic. No temporal or scalp tenderness. EYES: Pupils equal round and reactive. Extraocular motions intact. No scleral icterus. No injection or drainage. ENT: Nose without bleeding, purulent drainage or septal hematoma. Throat without erythema, tonsillar hypertrophy or exudate. Uvula midline. Airway patent. NECK: Trachea midline. No JVD or lymphadenopathy. Supple, nontender, no meningeal signs. CARDIOVASCULAR: Regular rate and rhythm without murmurs, gallops, or rubs. RESPIRATORY: Clear to auscultation. Breath sounds equal bilaterally. No wheezes , rales, or rhonchi. GASTROINTESTINAL: Abdomen soft, non-tender, nondistended. No hepato-splenomegaly , or palpable masses. No guarding. MUSCULOSKELETAL: Extremities without clubbing, cyanosis. No joint tenderness, effusion, or edema noted. No calf tenderness. Negative Homans sign bilaterally. Bilateral lower extremity noted with dry scaly skin, mild erythema from mid calf down to feet. There is pitting edema, 2+, faint pedal pulses. There is ulcerated area of the left plantar aspect of the great toe, fibrous tissue, no exudate. No erythema. It is approximately 2 cm width and 1 cm deep. NEUROLOGICAL: Awake, alert oriented 3. No focal deficits. Slow to respond but otherwise appears to be at baseline. Following commands. Able to provide some history. Mild tremors are noted. (Melba Tate) Urinary Catheter: No (Melba Tate) Vascular Central Line Catheter: No (Melba Tate) A/P Diagnosis: (1) Bilateral cellulitis of lower leg (2) Edema (3) Onychomycosis (4) CKD (chronic kidney disease) stage 4, GFR 15-29 ml/min (5) HTN (hypertension) (6) Anemia (7) Acute kidney injury superimposed on CKD (8) Hx of deep venous thrombosis (9) Posterior tibial tendon dysfunction (10) Chronic anticoagulation (11) Peripheral neuropathy (12) Schizoaffective disorder (13) Chronic ulcer of great toe of left foot Assessment and Plan 57-year-old male presented to the emergency room with bilateral leg/foot swelling and redness for the last 2 days, no fever, no chills. Patient was recently admitted in January for left great toe ulcer that required I&D, was sent home on oral antibiotics which he has completed. Biopsy was positive for osteomyelitis. He has not been able to follow-up with podiatry. Denies any fever, no chills. Complains of legs being painful. Bilateral lower extremity cellulitis, patient with poor hygiene, unable to clean his feet. Indicates that he has been walking in flip flops and is not able to wear shoes. Poor hygiene. -US of legs Negative for DVT -Continue with antibiotics Follow cultures, neg. so far -continue ID for evaluation Recent admission for left great toe ulcer, completed antibiotics, appears to be healing. -Podiatry has been consulted for evaluation, pending Acute on chronic renal injury, stage IV. Appears pretty close to baseline. -Hydrated cautiously Avoid nephrotoxic agents -renal function better Hypertension, stable Continue with home medication Peripheral neuropathy, on gabapentin Continue gabapentin Schizoaffective disorder, stable, follows up with psychiatrist at [facility] Continue home medication History DVT, on chronic anticoagulation -INR 2 -Continue Coumadin waiting for pod input keep legs elevated and clean D/W RN D/W pt D/W Dr. Rodriguez This patient was seen by myself and Dr. Rodriguez, this note is written on his behalf (Melba Tate) Assessment and Plan Hx Infected non healing plantar ulcer of L hallux, / GBS, anaerobs Hx Osteomyelitis, biopsy confirmed, Group B strep now developing Cellulitis pt is seen & examined d/w PT & sig other d/w Melba agree w above will f/u (Jeremy Rodriguez MD) Problem Qualifiers (1) Edema: Qualified Code: R60.9 - Edema, unspecified type (2) HTN (hypertension): Qualified Code: I10 - Essential hypertension (3) Anemia: (4) Peripheral neuropathy: Qualified Code: G62.9 - Peripheral polyneuropathy (5) Schizoaffective disorder: Qualified Code: F25.9 - Schizoaffective disorder, unspecified type Melba Tate Mar 17, 2017 11:04 Jeremy Rodriguez MD Mar 17, 2017 13:32
[2017-03-17 12:00] VITALS: BP 104/61; PULSE 64; RESP 18; TEMP 97.6; O2SAT 97
[2017-03-17] MEDS ORDERED: NICOTINE 14 MG/24 HR PATCH T-DERMAL ONE (14:30)
[2017-03-17 16:00] VITALS: BP 118/59; PULSE 64; RESP 20; TEMP 97.3; O2SAT 99
[2017-03-17] MEDS ORDERED: WARFARIN SOD 6 MG TAB PO SCH (16:00)
--- NOTE | 2017-03-17 18:53 | MB ---
cc: JANIYA ANGELES MD DATE OF CONSULTATION: 03/17/2017. REASON FOR CONSULTATION: Cellulitis of the right foot. Left big toe ulcer / osteomyelitis. REQUESTING PHYSICIAN: Dr. Rodriguez. HISTORY OF PRESENT ILLNESS: This is a 57-year white male who was sent to the emergency department by his diesel motor mechanic. The patient called his diesel motor mechanic's office because of gradual worsening of his lower extremities. He reports redness. The patient is a very poor historian and therefore I am unable to get any meaningful information from him. When I asked him why he is here he indicates that he does not know. The patient was treated last month for osteomyelitis with an ulcerated lesion of his left great toe. He was put on Levaquin. Culture of the bone from the toe grew out group B beta strep. Pathology evaluation revealed acute osteomyelitis of the biopsy of the bone. He has an ulcer at the base of the great toe on the left. There is no drainage currently. There is no significant erythema visible. The patient does have erythema of both legs which is confluent. He has chronic tree bark changes of the lower extremities. An ultrasound of the right lower extremity was negative for deep venous thrombosis. The patient denies fever or chills. He is afebrile. White count was mildly elevated at 13.1 on admission. PAST MEDICAL HISTORY: 1. Bipolar disorder. 2. COPD. 3. Hypercholesteremia. 4. History of Gastroesophageal reflux disease (GERD). 5. Hypertension. 6. Chronic renal insufficiency. 7. History of eye surgery. ALLERGIES: 1. PENICILLIN. 2. SEROQUEL. 3. THORAZINE. 4. HALDOL. 5. LITHIUM. MEDICATIONS: 1. Piperacillin / tazobactam. 2. Protonix. 3. Artane. 4. Toprol XL. 5. Coumadin. 6. Nicotine patch. 7. Geodon. 8. Neurontin. 9. Lipitor. 10. Josefina-Colace. SOCIAL HISTORY: Positive tobacco use. No illicit drugs. No alcohol. FAMILY HISTORY Noncontributory. REVIEW OF SYSTEMS: Difficult to obtain since the patient is a very poor historian. He answers "no" to all systems review indicating a negative review of systems. PHYSICAL EXAMINATION: GENERAL: This is a well-developed male who appears older than his stated age. He is in no acute distress. VITAL SIGNS: Temperature 97.6, blood pressure 104/61, respirations 18, heart rate 64. HEAD, EYES, EARS, NOSE, THROAT: The head is atraumatic. Extraocular movements grossly intact. Pupils reactive to light. No icterus. Oropharynx with moist mucosa without lesions. NECK: The neck is supple. No adenopathy. LUNGS: Clear breath sounds. HEART: Regular rate and rhythm. Normal S1 and S2. ABDOMEN: Bowel sounds present, soft, no tenderness appreciated. RECTAL: Not performed. EXTREMITIES: Both lower extremities have chronic appearing tree bark skin changes with dry flaking skin and mild erythema. The right lower extremity is swollen more than the left. The left has trace edema. An ulcer is present at the base of the left toe at the plantar aspect which is superficial and shallow and has no drainage and no erythema. The toes have several areas with superficial bruises. SKIN: No diffuse rash. NEUROLOGIC: Nonfocal. LABORATORY DATA: WBCs 11.1, platelets 246,000, 73% neutrophils, hemoglobin 10.7. Erythrocyte sedimentation rate 69. Creatinine 2.73, BUN 25, estimated GFR 24, sodium 147. Liver function tests are normal. IMPRESSION: 1. Cellulitis of the right lower extremity. 2. Chronic wound / osteomyelitis of the left great toe which appears stable. RECOMMENDATIONS: 1. Discontinue piperacillin / tazobactam. 2. Monitor blood cultures. 3. Begin Ancef intravenous. 4. Follow renal function on antibiotics. 5. Conversion to p.o. antibiotics once it is felt that the cellulitis is improving. Thank you this consultation. The patient's progress will be followed and further recommendations will be given on followup if necessary. Janiya Angeles MD FD/ANGEL /4:23 PM /6:41 PM GWEN
[2017-03-17] MEDS: ATORVASTATIN 40 MG TAB PO SCH (19:46)
[2017-03-17 20:00] VITALS: BP 127/70; PULSE 68; RESP 16; TEMP 97.4; O2SAT 99
--- NOTE | 2017-03-17 20:38 | PD.CONS ---
History of Present Illness Service Podiatry Consult Requested By Reason for Consult L hallux wound/osteomyelitis history Primary Care Physician Arcenio Ledbetter, DO Diagnoses: History of Present Illness 57-year white male who has been treated for osteomyelitis L hallux and has a wound plantar hallux. He says he has been using silvadene on it. He usually sees Dr Lai and last saw him a week ago. He was put on antibiotics for osteomyelitis because pathology evaluation showed acute osteomyelitis of the biopsy of the bone. Past Family Social History Allergies: Coded Allergies: Haldol (Verified Allergy, Severe, TONGUE SWELLS, 03/16/17) Hayfield (Verified Allergy, Severe, OVER DOSED ON IT, 03/16/17) Penicillin (Verified Allergy, Severe, RASH, 03/16/17) Seroquel (Verified Allergy, Severe, HIVES, 03/16/17) Thorazine (Verified Allergy, Severe, SOB, 03/16/17) 10/26/04: PER PT, HE HAS BEEN TAKING STELAZINE SINCE 13 YEARS OLD --- ALTHOUGH HIS RECORD INDICATES AN ALLERGY TO THORAZINE. 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 Bipolar disorder. 2. COPD. 3. Hypercholesteremia. 4. History of Gastroesophageal reflux disease (GERD). 5. Hypertension. 6. Chronic renal insufficiency. 7. History of eye surgery. Active Ordered Medications Current Medications Medications (Trade) Dose Ordered Sig/Kwadwo Route Start Time Stop Time Status Last Admin (Tylenol) 650 mg Q4H PRN PO 03/16/17 17:00 03/17/17 11:11 (NS Flush) 2 ml UNSCH PRN IV FLUSH 03/16/17 17:45 (NS Flush) 2 ml BID IV FLUSH 03/16/17 21:00 03/17/17 09:00 (Tylenol) 650 mg Q4H PRN PO 03/16/17 17:45 (Zofran Inj) 4 mg Q6H PRN IVP 03/16/17 17:45 (Narcan Inj) 0.4 mg UNSCH PRN IV 03/16/17 17:45 (Josefina-Colace) 1 tab BID PO 03/16/17 21:00 03/17/17 08:41 (Milk Of Magnesia Liq) 30 ml Q12H PRN PO 03/16/17 17:45 (Senokot) 17.2 mg Q12H PRN PO 03/16/17 17:45 (Dulcolax Supp) 10 mg DAILY PRN RECTAL 03/16/17 17:45 (Lactulose Liq) 30 ml DAILY PRN PO 03/16/17 17:45 (Lipitor) 40 mg HS PO 03/16/17 21:00 03/17/17 19:46 (Neurontin) 300 mg BID PO 03/16/17 21:00 03/17/17 19:46 (Toprol Xl) 25 mg DAILY PO 03/17/17 09:00 03/17/17 08:41 (Artane) 2 mg DAILY PO 03/17/17 09:00 03/17/17 08:41 (Coumadin) 6 mg DAILY@16 PO 03/17/17 16:00 03/17/17 16:00 (Geodon) 80 mg BIDPC PO 03/16/17 21:00 03/17/17 09:00 (Protonix) 20 mg DAILY@06 PO 03/17/17 06:00 03/17/17 06:13 (Habitrol 14 Mg Patch.24 Hr) 1 patch DAILY T-DERMAL 03/18/17 09:00 Miscellaneous Information 1 1 HS T-DERMAL 03/17/17 21:00 03/17/17 19:46 (Ancef Inj/NS Inj) 100 ml @ 200 mls/hr Q12H IV 03/17/17 17:00 03/17/17 19:46 Family History Social History Positive tobacco use. No illicit drugs. No alcohol. Physical Exam Vital Signs Vital Signs Date Time Temp Pulse Resp B/P Pulse Ox O2 Delivery O2 Flow Rate FiO2 03/17/17 16:00 97.3 64 20 118/59 99 03/17/17 12:00 97.6 64 18 104/61 97 03/17/17 08:00 97.8 82 18 108/62 98 03/17/17 04:00 98.5 80 18 108/65 95 03/17/17 00:00 98.5 80 18 108/65 95 Physical Exam L hallux plantar IPJ area has ulceration 1.2cm diameter with fibrotic base. 0.2cm depth. No visible or palpable bone at this time. No erythema. No drainage. Appears dry, stable at this time. Laboratory Laboratory Tests Test 03/16/17 03/17/17 21:26 05:57 Prothrombin Time 23.5 23.1 Prothromb Time International 2.1 2.0 Ratio White Blood Count 11.1 Red Blood Count 4.07 Hemoglobin 10.7 Hematocrit 32.6 Mean Corpuscular Volume 80.0 Mean Corpuscular Hemoglobin 26.2 Mean Corpuscular Hemoglobin 32.7 Concent Red Cell Distribution Width 19.7 Platelet Count 246 Mean Platelet Volume 9.3 Neutrophils (%) (Auto) 73.5 Lymphocytes (%) (Auto) 12.4 Monocytes (%) (Auto) 8.5 Eosinophils (%) (Auto) 5.0 Basophils (%) (Auto) 0.6 Neutrophils # (Auto) 8.1 Lymphocytes # (Auto) 1.4 Monocytes # (Auto) 0.9 Eosinophils # (Auto) 0.6 Basophils # (Auto) 0.1 CBC Comment DIFF FINAL Differential Comment Sodium Level 147 Potassium Level 4.7 Chloride Level 114 Carbon Dioxide Level 27.5 Anion Gap 6 Blood Urea Nitrogen 25 Creatinine 2.73 Estimat Glomerular Filtration 24 Rate Random Glucose 91 Calcium Level 9.2 Date/Time Procedure Status Source Growth 03/16/17 17:05 Aerobic Blood Culture - Preliminary Resulted Blood Peripheral NO GROWTH IN 1 DAY 03/16/17 17:05 Anaerobic Blood Culture - Preliminary Resulted Blood Peripheral NO GROWTH IN 1 DAY Result Diagram: 03/17/17 0557 03/17/17 0557 Assessment and Plan Assessment and Plan Ulcer L plantar hallux, history of osteomyelitis Ordered santyl dressing changes daily, continue until follow up. Continue with follow up with Dr Lai for wound care as outpatient. Ok to d/c patient per podiatry. No treatment planned Nemo Koenig DPM Mar 17, 2017 20:38
[2017-03-17] MEDS ORDERED: REMOVE OLD NICODERM (NICOTINE) PATCH T-DERMAL SCH (21:00)
[2017-03-18] VITALS: BP 122/68; PULSE 72; RESP 16; TEMP 97.7; O2SAT 98
[2017-03-18 04:00] VITALS: BP 115/63; PULSE 80; RESP 20; TEMP 97.4; O2SAT 100
[2017-03-18] MEDS: PANTOPRAZOLE SOD 20 MG DELAYED RELEASE TAB PO SCH (05:08)
[2017-03-18] MEDS: TRIHEXYPHENIDYL HCL 2 MG TAB PO SCH (07:52)
[2017-03-18] MEDS: SODIUM CHLORIDE 0.9% FLUSH 10 ML FLUSH IV FLUSH SCH (07:53)
[2017-03-18] MEDS: ZIPRASIDONE HCL 80 MG CAP PO SCH ×2 (07:53→07:57)
[2017-03-18] MEDS: METOPROLOL SUCCINATE 25 MG EXTENDED RELEASE TAB PO SCH (07:53)
[2017-03-18] MEDS: GABAPENTIN 300 MG CAP PO SCH (07:53)
[2017-03-18] MEDS: DOCUSATE SODIUM 50 MG/SENNA 8.6 MG TAB PO SCH (07:53)
[2017-03-18 08:00] VITALS: BP 128/72; PULSE 81; RESP 20; TEMP 97.5; O2SAT 98
--- NOTE | 2017-03-18 08:56 | HHI.FF ---
Face to Face Verification Diagnosis: (1) Bilateral cellulitis of lower leg (2) Chronic ulcer of great toe of left foot (3) Acute kidney injury superimposed on CKD Home Health Nursing Order: Medical education Signs/symptoms of disease process Wound care and dressing changes Nursing assessment with vital signs Instructions: santyl dressing changes daily need to f/u with Dr. Lai and nephrology Dr. Garcia Paying Teller Order: To Evaluate: Support services (pt. is not following with physicians, needs to do to prevent rehospitalizations. Doesn't understand the importance) Order: To Provide: Community services I have seen patient Edmundo Benavides on 03/18/17. My clinical findings support the need for the requested home health care services because: Deconditioned w/ increased weakness Limited ability to care for self Need for psychosocial assistance Impaired cognition/judgement I certify that my clinical findings support that this patient is homebound because: Impaired cognitive ability/safety Unsteady gait/balance Unsafe to leave home unassisted Need for psychosocial assistance Melba Tate Mar 18, 2017 08:55
[2017-03-18] MEDS ORDERED: NICOTINE 14 MG/24 HR PATCH T-DERMAL SCH (09:00)
[2017-03-18] MEDS ORDERED: COLLAGENASE OINT 30 GM TUBE TOPICAL SCH (09:00)
--- NOTE | 2017-03-18 09:01 | HHI.PR ---
Subjective Remarks "I want to go home" leg swelling improved minimal tenderness no fever no cp no sob Objective Objective Results - Vital Signs Date Time Temp Pulse Resp B/P Pulse Ox O2 Delivery O2 Flow Rate FiO2 03/18/17 08:00 97.5 81 20 128/72 98 03/18/17 04:00 97.4 80 20 115/63 100 03/18/17 00:00 97.7 72 16 122/68 98 03/17/17 20:00 Room Air 03/17/17 20:00 97.4 68 16 127/70 99 03/17/17 16:00 97.3 64 20 118/59 99 03/17/17 12:00 97.6 64 18 104/61 97 I/O 03/17/17 03/17/17 03/17/17 03/18/17 03/18/17 03/18/17 07:00 15:00 23:00 07:00 15:00 23:00 Intake Total 508 ml 480 ml 838 ml 468 ml Output Total 375 ml Balance 508 ml 480 ml 463 ml 468 ml Intake Oral 480 ml 580 ml 360 ml IV Total 508 ml 258 ml 108 ml Output Urine Total 375 ml # Voids 3 1 2 # Bowel Movements 2 1 Result Diagram: 03/17/17 0557 03/17/17 0557 Imaging Last Impressions Lower Extremity Ultrasound 03/16/17 1411 Signed Impressions: Service Date/Time: Thursday, March 16, 2017 15:02 - CONCLUSION: No evidence of deep venous thrombosis within the lower extremities. Brandon Schuler MD Other Results Date/Time Procedure Status Source Growth 03/16/17 17:05 Aerobic Blood Culture - Preliminary Resulted Blood Peripheral NO GROWTH IN 1 DAY 03/16/17 17:05 Anaerobic Blood Culture - Preliminary Resulted Blood Peripheral NO GROWTH IN 1 DAY ROS Cardiac: Edema (improved ) Psych: Anxiety Skin: Rash (legs ) Physical Exam Physical Exam GENERAL: This is a well-nourished, well-developed patient, in no apparent distress. SKIN: Skin to legs dry, scaly, toe nails long and thickened. HEAD: Atraumatic. Normocephalic. No temporal or scalp tenderness. EYES: Pupils equal round and reactive. Extraocular motions intact. No scleral icterus. No injection or drainage. ENT: Nose without bleeding, purulent drainage or septal hematoma. Throat without erythema, tonsillar hypertrophy or exudate. Uvula midline. Airway patent. NECK: Trachea midline. No JVD or lymphadenopathy. Supple, nontender, no meningeal signs. CARDIOVASCULAR: Regular rate and rhythm without murmurs, gallops, or rubs. RESPIRATORY: Clear to auscultation. Breath sounds equal bilaterally. No wheezes , rales, or rhonchi. GASTROINTESTINAL: Abdomen soft, non-tender, nondistended. No hepato-splenomegaly , or palpable masses. No guarding. MUSCULOSKELETAL: Extremities without clubbing, cyanosis. No joint tenderness, effusion, or edema noted. No calf tenderness. Negative Homans sign bilaterally. Bilateral lower extremity noted with dry scaly skin, mild erythema from mid calf down to feet. There is +1 pitting edema, faint pedal pulses. There is ulcerated area of the left plantar aspect of the great toe, fibrous tissue, no exudate. No erythema. It is approximately 2 cm width and 1 cm deep. NEUROLOGICAL: Awake, alert oriented 3. No focal deficits. Slow to respond but otherwise appears to be at baseline. Following commands. Able to provide some history. Mild tremors are noted. Urinary Catheter: No Vascular Central Line Catheter: No A/P Diagnosis: (1) Bilateral cellulitis of lower leg (2) Edema (3) Onychomycosis (4) CKD (chronic kidney disease) stage 4, GFR 15-29 ml/min (5) HTN (hypertension) (6) Anemia (7) Acute kidney injury superimposed on CKD (8) Hx of deep venous thrombosis (9) Posterior tibial tendon dysfunction (10) Chronic anticoagulation (11) Peripheral neuropathy (12) Schizoaffective disorder (13) Chronic ulcer of great toe of left foot Assessment and Plan 57-year-old male presented to the emergency room with bilateral leg/foot swelling and redness for the last 2 days, no fever, no chills. Patient was recently admitted in January for left great toe ulcer that required I&D, was sent home on oral antibiotics which he has completed. Biopsy was positive for osteomyelitis. He has not been able to follow-up with podiatry. Denies any fever, no chills. Complains of legs being painful. Bilateral lower extremity cellulitis, patient with poor hygiene, unable to clean his feet. Indicates that he has been walking in flip flops and is not able to wear shoes. Poor hygiene. Cellulitis, markedly improved. -US of legs Negative for DVT -appreciate ID input, started on Ancef, cultures negative. Maybe change to PO abx and dc -discussed again need for hygiene, keeping skin clean. Recent admission for left great toe ulcer, completed antibiotics, appears to be healing. Chronic osteomyelitis left great toe -Podiatry input appreciated, Santyl dressing changes ordered. Wound healing well. Recommends to f/u with Dr. Lai as OP. No further surgery needed. Acute on chronic renal injury, stage IV. Appears pretty close to baseline. -Hydrated cautiously Avoid nephrotoxic agents -renal function better -needs to f/u renal as OP Hypertension, stable Continue with home medication Peripheral neuropathy, on gabapentin Continue gabapentin Schizoaffective disorder, stable, follows up with psychiatrist at [facility] Continue home medication History DVT, on chronic anticoagulation -INR pending -Continue Coumadin CM for dc planning, resume HHC Poss dc today, may be able to change to PO abx D/W RN D/W pt D/W Dr. Rodriguez D/W CM This patient was seen by myself and Dr. Rodriguez, this note is written on his behalf Problem Qualifiers (1) Edema: Qualified Code: R60.9 - Edema, unspecified type (2) HTN (hypertension): Qualified Code: I10 - Essential hypertension (3) Anemia: Qualified Code: N18.4 - Anemia in stage 4 chronic kidney disease (4) Peripheral neuropathy: Qualified Code: G62.9 - Peripheral polyneuropathy (5) Schizoaffective disorder: Qualified Code: F25.9 - Schizoaffective disorder, unspecified type (6) Chronic ulcer of great toe of left foot: Qualified Code: L97.522 - Chronic ulcer of great toe of left foot, with fat layer exposed Melba Tate Mar 18, 2017 09:01
--- NOTE | 2017-03-18 10:59 | HHI.IDPN ---
Note Infectious Disease Note Patient sitting on side of bed. Fells okay. Afebrile. No chills. No nausea. PAST MEDICAL HISTORY: 1. Bipolar disorder. 2. COPD. 3. Hypercholesteremia. 4. History of Gastroesophageal reflux disease (GERD). 5. Hypertension. 6. Chronic renal insufficiency. 7. History of eye surgery. ALLERGIES: 1. PENICILLIN. 2. SEROQUEL. 3. THORAZINE. 4. HALDOL. 5. LITHIUM. ANTIBIOTICS: Ancef. OBJECTIVE: Vital Signs Date Time Temp Pulse Resp B/P Pulse Ox O2 Delivery O2 Flow Rate FiO2 03/18/17 08:00 97.5 81 20 128/72 98 03/18/17 04:00 97.4 80 20 115/63 100 03/18/17 00:00 97.7 72 16 122/68 98 03/17/17 20:00 Room Air 03/17/17 20:00 97.4 68 16 127/70 99 03/17/17 16:00 97.3 64 20 118/59 99 03/17/17 12:00 97.6 64 18 104/61 97 03/17/17 03/17/17 03/18/17 15:00 23:00 07:00 Intake Total 480 ml 838 ml 468 ml Output Total 375 ml Balance 480 ml 463 ml 468 ml Intake Oral 480 ml 580 ml 360 ml IV Total 258 ml 108 ml Output Urine Total 375 ml # Voids 3 1 2 # Bowel Movements 2 1 Laboratory Tests Test 03/16/17 03/17/17 14:15 05:57 White Blood Count 13.1 TH/MM3 11.1 TH/MM3 Red Blood Count 4.73 MIL/MM3 4.07 MIL/MM3 Hemoglobin 12.0 GM/DL 10.7 GM/DL Hematocrit 38.1 % 32.6 % Mean Corpuscular Volume 80.6 FL 80.0 FL Mean Corpuscular Hemoglobin 25.3 PG 26.2 PG Mean Corpuscular Hemoglobin 31.4 % 32.7 % Concent Red Cell Distribution Width 20.2 % 19.7 % Platelet Count 206 TH/MM3 246 TH/MM3 Mean Platelet Volume 8.9 FL 9.3 FL Neutrophils (%) (Auto) 75.4 % 73.5 % Lymphocytes (%) (Auto) 11.7 % 12.4 % Monocytes (%) (Auto) 8.4 % 8.5 % Eosinophils (%) (Auto) 3.9 % 5.0 % Basophils (%) (Auto) 0.6 % 0.6 % Neutrophils # (Auto) 9.9 TH/MM3 8.1 TH/MM3 Lymphocytes # (Auto) 1.5 TH/MM3 1.4 TH/MM3 Monocytes # (Auto) 1.1 TH/MM3 0.9 TH/MM3 Eosinophils # (Auto) 0.5 TH/MM3 0.6 TH/MM3 Basophils # (Auto) 0.1 TH/MM3 0.1 TH/MM3 CBC Comment AUTO DIFF DIFF FINAL Differential Comment AUTO DIFF CONFIRMED Platelet Estimate NORMAL Platelet Morphology Comment NORMAL Erythrocyte Sedimentation Rate 69 mm/hr Laboratory Tests Test 03/16/17 03/17/17 14:15 05:57 Sodium Level 138 MEQ/L 147 MEQ/L Potassium Level 5.1 MEQ/L 4.7 MEQ/L Chloride Level 106 MEQ/L 114 MEQ/L Carbon Dioxide Level 24.7 MEQ/L 27.5 MEQ/L Anion Gap 7 MEQ/L 6 MEQ/L Blood Urea Nitrogen 27 MG/DL 25 MG/DL Creatinine 2.91 MG/DL 2.73 MG/DL Estimat Glomerular Filtration 22 ML/MIN 24 ML/MIN Rate Random Glucose 99 MG/DL 91 MG/DL Calcium Level 9.4 MG/DL 9.2 MG/DL Total Bilirubin 0.4 MG/DL Aspartate Amino Transf 32 U/L (AST/SGOT) Alanine Aminotransferase 28 U/L (ALT/SGPT) Alkaline Phosphatase 96 U/L C-Reactive Protein 8.48 MG/DL Total Protein 7.7 GM/DL Albumin 3.2 GM/DL Microbiology Date/Time Procedure Status Source Growth 03/16/17 17:00 Aerobic Blood Culture - Preliminary Resulted Blood Peripheral NO GROWTH IN 1 DAY 03/16/17 17:00 Anaerobic Blood Culture - Preliminary Resulted Blood Peripheral NO GROWTH IN 1 DAY 03/16/17 17:05 Aerobic Blood Culture - Preliminary Resulted Blood Peripheral NO GROWTH IN 1 DAY 03/16/17 17:05 Anaerobic Blood Culture - Preliminary Resulted Blood Peripheral NO GROWTH IN 1 DAY PHYSICAL EXAMINATION: GENERAL: No acute distress. HEAD, EYES, EARS, NOSE, THROAT: No icterus. Oropharynx with moist mucosa without lesions. NECK: The neck is supple. No adenopathy. LUNGS: Clear breath sounds. HEART: Regular rate and rhythm. Normal S1 and S2. EXTREMITIES: Both lower extremities have chronic appearing tree bark skin changes with dry flaking skin. Erythema is decreased. The left has less edema. SKIN: No diffuse rash. NEUROLOGIC: Nonfocal. IMPRESSION: 1. Cellulitis of the right lower extremity. Looks improved. Mild erythema. 2. Chronic wound / osteomyelitis of the left great toe which appears stable. Patient was supposed to be on Levaquin PO per Dr Portillo's note at last hospitalization. He says he was not on antibiotics. RECOMMENDATIONS: 1. Discontinue Ancef. 2. Okay to discharge today on PO Levaquin 250mg daily x 2 weeks and follow up with podiatry. Denver Angeles MD Mar 18, 2017 10:59 2. Okay to discharge today on PO Levaquin 250mg daily x 2 weeks and follow up with podiatry. Denver Angeles MD Mar 18, 2017 10:59
[2017-03-18 12:00] VITALS: BP 126/66; PULSE 66; RESP 20; TEMP 97.4
[2017-03-18] MEDS ORDERED: LEVA250T14 PO (12:24)
[2017-03-18] MEDS ORDERED: LEVOFLOXACIN 250 MG TAB PO ONE (12:30)
[2017-03-19] MEDS ORDERED: LEVOFLOXACIN 250 MG TAB PO SCH (12:00)
--- NOTE | 2017-03-19 18:24 | HHI.DS ---
Discharge Summary Admission Date Mar 16, 2017 at 16:59 Discharge Date: Mar 18, 2017 Admitting Diagnosis Cellulitis vs Osteomyelitis. (1) Bilateral cellulitis of lower leg (2) Edema (3) Onychomycosis (4) CKD (chronic kidney disease) stage 4, GFR 15-29 ml/min (5) HTN (hypertension) (6) Anemia (7) Acute kidney injury superimposed on CKD (8) Hx of deep venous thrombosis (9) Posterior tibial tendon dysfunction (10) Chronic anticoagulation (11) Peripheral neuropathy (12) Schizoaffective disorder (13) Chronic ulcer of great toe of left foot CBC/BMP: 03/17/17 0557 03/17/17 0557 Significant Findings Laboratory Tests Test 03/16/17 03/17/17 21:26 05:57 Prothrombin Time 23.5 SEC 23.1 SEC (9.8-11.6) (9.8-11.6) White Blood Count 11.1 TH/MM3 (4.0-11.0) Red Blood Count 4.07 MIL/MM3 (4.50-5.90) Hemoglobin 10.7 GM/DL (13.0-17.0) Hematocrit 32.6 % (39.0-51.0) Mean Corpuscular Hemoglobin 26.2 PG (27.0-34.0) Red Cell Distribution Width 19.7 % (11.6-17.2) Neutrophils (%) (Auto) 73.5 % (16.0-70.0) Monocytes (%) (Auto) 8.5 % (0.0-8.0) Eosinophils (%) (Auto) 5.0 % (0.0-4.0) Neutrophils # (Auto) 8.1 TH/MM3 (1.8-7.7) Eosinophils # (Auto) 0.6 TH/MM3 (0-0.4) Sodium Level 147 MEQ/L (136-145) Chloride Level 114 MEQ/L (98-107) Blood Urea Nitrogen 25 MG/DL (7-18) Creatinine 2.73 MG/DL (0.60-1.30) Estimat Glomerular Filtration 24 ML/MIN (>89) Rate Imaging Last Impressions Lower Extremity Ultrasound 03/16/17 1411 Signed Impressions: Service Date/Time: Thursday, March 16, 2017 15:02 - CONCLUSION: No evidence of deep venous thrombosis within the lower extremities. Brandon Schuler MD Hospital Course This is a 57-year-old male with history of peripheral vascular disease, peripheral neuropathy, history of DVT on Coumadin, schizoaffective disorder, chronic kidney disease, COPD, tobacco abuse. Patient recently admitted February 11 until February 19, 2017 for left great toe ulceration that require I&D and IV antibiotics. Biopsy was positive for osteomyelitis. He was actually offered amputation versus antibiotics and he opted for medical treatment. He was discharged on oral antibiotics and instructions to follow-up with podiatry. Patient presents back to the emergency room complaining of bilateral leg and feet swelling and redness for the last 2 days, indicates his legs are sore. Skin is noted erythematous, very dry and scaly. Toenails are long and thickened. Patient indicates he is having a hard time cleaning his legs and is not able to wear shoes. He either doesn't wear shoes or uses flip-flops. He states that he finished the antibiotics that he has not been able to follow-up with podiatry. He denies any fever, no chills. No chest pain, no shortness of breath. He is complaining of burning when he voids. He has a history of chronic kidney disease however he has not follow-up with nephrology. He voids adequate amounts. Patient was evaluated in emergency room, laboratory was completed. CBC remarkable for leukocytosis, WBC 13.1. Sedimentation rate 69. C-reactive protein 8.48. BMP remarkable for BUN of 27, creatinine 2.91. Ultrasound of the legs was negative for DVT. Cultures were obtained, he was started on empiric antibiotics. Left great toe ulceration was noted, appears to be healing. There was an opening from the recent I&D but otherwise there is no exudate, no odor. Patient was admitted for further evaluation and treatment for: (1) Bilateral cellulitis of lower leg (2) Edema (3) Onychomycosis (4) CKD (chronic kidney disease) stage 4, GFR 15-29 ml/min (5) HTN (hypertension) (6) Anemia (7) Acute kidney injury superimposed on CKD (8) Hx of deep venous thrombosis (9) Posterior tibial tendon dysfunction (10) Chronic anticoagulation (11) Peripheral neuropathy (12) Schizoaffective disorder (13) Chronic ulcer of great toe of left foot During the course of the hospitalization, the following took place: 57-year-old male presented to the emergency room with bilateral leg/foot swelling and redness for the last 2 days, no fever, no chills. Patient was recently admitted in January for left great toe ulcer that required I&D, was sent home on oral antibiotics which he has completed. Biopsy was positive for osteomyelitis. He has not been able to follow-up with podiatry. Denies any fever, no chills. Complains of legs being painful. Bilateral lower extremity cellulitis, patient with poor hygiene, unable to clean his feet. Indicates that he has been walking in flip flops and is not able to wear shoes. Poor hygiene. Cellulitis, markedly improved. -US of legs Negative for DVT -appreciated ID input, started on Ancef, cultures negative. -discussed again need for hygiene, keeping skin clean. Recent admission for left great toe ulcer, completed antibiotics, appears to be healing. Chronic osteomyelitis left great toe -Podiatry input appreciated, Santyl dressing changes ordered. Wound healing well. Recommended to f/u with Dr. Lai as OP. No further surgery needed. -Per ID, recommended to continue Levaquin x 2 more weeks. Pt. denied taking meds although rx were given during previous admission. Acute on chronic renal injury, stage IV. Appears pretty close to baseline. -Hydrated cautiously Avoided nephrotoxic agents -renal function better -needs to f/u renal as OP Hypertension, stable Continued with home medication Peripheral neuropathy, on gabapentin Continued gabapentin Schizoaffective disorder, stable, follows up with psychiatrist at [facility] Continued home medication History DVT, on chronic anticoagulation -INR therapeutic -Continued Coumadin CM for dc planning, resume [facility] PT. stable, no fever, cellulitis improved. Needs to continue on PO abx for osteo. This was emphasized. [facility] asked to f/u with med compliance Discharged in stable condition F/U renal, podiatry, PCP Pt Condition on Discharge: Stable Discharge Disposition: Discharge Home Discharge Instructions DIET: Follow Instructions for: Heart Healthy Diet Fluid Restrictions: 1600 cc/day Activities you can perform: Weight Bearing as Viridiana Other Activity Instructions: elevate legs when resting/keep feet clean /avoid walking bare feet Follow up Referrals: PCP Follow-up - 1 Week Podiatry - 2 Weeks SNF/[facility] with [facility] New Medications: Levofloxacin (Levaquin) 250 Mg Tablet 250 MG PO DAILY infection #14 TAB Continued Medications: Atorvastatin (Atorvastatin) 40 Mg Tab 40 MG PO HS Cholesterol Management #30 Ref 0 TAB Gabapentin (Neurontin) 300 Mg Cap 300 MG PO BID Pain Management #60 Ref 0 CAP Metoprolol Succinate ER 24 HR (Metoprolol Succinate ER 24 HR) 25 Mg Tab 25 MG PO DAILY #30 Ref 0 TAB Omeprazole (Omeprazole) 20 Mg Tab 20 MG PO DAILY #30 Ref 0 TAB Paliperidone Palmitate Inj (Invega Sustenna Inj) 234 Mg/1.5 Ml Inj 234 MG IM Q28D Schizophrenia #1 Ref 0 VIAL Trihexyphenidyl (Trihexyphenidyl) 2 Mg Tab 2 MG PO DAILY Parkinson Disease Mgmt #30 Ref 0 TAB Warfarin (Warfarin) 6 Mg Tab 6 MG PO DAILY Blood Clot Prevention #30 Ref 0 TAB Ziprasidone (Ziprasidone) 80 Mg Cap 80 MG PO BID #60 Ref 0 CAP Melba Tate Mar 19, 2017 18:24
== END 2017-03-18 14:15 | disposition home or self-care (01) | DRG 603 ==
LOC: NEPE 13:16 → NEDA 16:59 → N04A 20:13
PROVIDERS: ADMIT Specialist; ATTEND Specialist
DX: L03.116 Cellulitis of left lower limb (principal); N17.9 Acute kidney failure, unspecified; G62.9 Polyneuropathy, unspecified; M86.672 Other chronic osteomyelitis, left ankle and foot; I12.9 Hypertensive chronic kidney disease with stage 1 through stage 4 chronic kidney disease, or unspecified chronic kidney disease; B35.1 Tinea unguium; J44.9 Chronic obstructive pulmonary disease, unspecified; D64.9 Anemia, unspecified; L97.529 Non-pressure chronic ulcer of other part of left foot with unspecified severity; F17.210 Nicotine dependence, cigarettes, uncomplicated; I73.9 Peripheral vascular disease, unspecified; L03.115 Cellulitis of right lower limb; E78.5 Hyperlipidemia, unspecified; Z86.718 Personal history of other venous thrombosis and embolism; Z79.01 Long term (current) use of anticoagulants; F31.9 Bipolar disorder, unspecified; N18.9 Chronic kidney disease, unspecified; K21.9 Gastro-esophageal reflux disease without esophagitis; F41.9 Anxiety disorder, unspecified; K59.00 Constipation, unspecified; F25.9 Schizoaffective disorder, unspecified
CPT/HCPCS: 76937; 80048; 80053; 80202; 81001; 85025; 85610; 85652; 86140; 87040; 90471; 90732; 93970; G0009; J0690; J2543; J3370; J7040; J7050